=== PATIENT | female | born 1985 | race Two or more races ===

== ENCOUNTER 2020-08-30 13:28 | Outpatient (REF) | payer MEDICAID, SELFPAY ==
[2020-08-30 13:48] LABS: COVID-19 Test Negative (Negative)
== END 2020-08-30 13:29 | disposition home or self-care (01) ==
LOC: HO.LAB 13:28
PROVIDERS: PCP Nurse Practitioner Family; Visit Provider Internal Medicine
DX: Z20.828 Contact with and (suspected) exposure to other viral communicable diseases (principal)
CPT/HCPCS: 87635

== ENCOUNTER 2020-12-25 09:06 | Emergency (ER) | payer MEDICAID, SELFPAY ==
[2020-12-25 09:50] VITALS: BP 122/71; PULSE 70; RESP 18; TEMP 37.1; O2SAT 99; BMI 27.4
--- NOTE | 2020-12-25 10:09 | ED_ITS ---
HPI - URI/Sore Throat General Chief Complaint: Upper Respiratory Symptoms Stated Complaint: covid symptoms Time Seen by Provider: 12/25/20 09:52 Source: patient Mode of arrival: ambulatory Limitations: no limitations History of Present Illness HPI Narrative: 35-year-old female previously healthy here with complaints of sore throat, cough, malaise, body aches, chills, headache x3 days. Sister at home is COVID positive. MD elicited complaint: cough and sore throat Treatments prior to arrival: none Related Data Allergies Allergy/AdvReac Type Severity Reaction Status Date / Time No Known Allergies Allergy Unverified 08/03/20 16:56 Review of Systems Review of Systems: Yes all other systems are reviewed and are negative Constitutional: Constitutional: Reports no additional constitutional complaints, Reports body ache(s), Reports chills, Denies fever(s), Reports headache(s) and Denies weakness Eyes: Eyes: Reports no additional eye complaints and Denies change in vision ENT: Reports system reviewed and no additional complaints, except as doc umented, Denies dizziness, Reports headache(s), Denies nasal congestion, Denies nasal discharge, Denies neck pain and Reports sore throat Cardiovascular: Cardiovascular: Reports no additional cardiovascular complaints, Denies chest pain, Denies leg edema and Denies dyspnea Respiratory: Respiratory: Reports no additional respiratory complaints, Reports cough and Denies dyspnea Gastrointestinal: Gastrointestinal: Reports no additional gastrointestinal complaints, Denies abdominal pain, Denies diarrhea, Denies nausea and Denies vomiting Genitourinary: Genitourinary: Reports no additional female genitourinary complaints and Denies urinary incontinence Musculoskeletal: Musculoskeletal: Reports no additional musculoskeletal complaints, Denies back pain, Denies arthralgias, Denies joint swelling, Denies neck pain, Denies numbness and Denies tingling Integumentary/Breasts: Skin/Breast: Reports system reviewed and no additional complaints, except as docu and Denies rash Neurologic: Reports system reviewed and no additional complaints, except as documented, Denies Abnormal speech present, Denies dizziness, Reports headache(s), Denies numbness, Denies tingling and Denies weakness PMFSH Past Medical History Attestation statement: The following information was validated with the patient. Source: old records reviewed and nursing notes reviewed Medical History Asthma delivery delivered Social History Social History Advance Directives: No Advance Directives Information Provided: No Physical Exam Vital Signs: Vital Signs: Last Vital Signs Temp 98.7 F 12/25/20 09:50 Pulse 70 12/25/20 09:50 Resp 18 12/25/20 09:50 BP 122/71 12/25/20 09:50 Pulse Ox 99 12/25/20 09:50 Body Mass Index 27.4 Const: General: cooperative, healthy appearing, comfortable and no acute distress Orientation/consciousness: patient oriented x3 Limitations: no limitations HENMT: Head: Yes normal to inspection Ears: hearing grossly normal bilatera lly General nose exam: Normal external nose present Face and sinus: Yes normal facial exam Mouth: Normal oral and palatal mucosa present Throat: Yes posterior oropharynx normal Eyes: General: appearance normal, both eyes and all related structures Neck: Neck: Yes normal visual inspection Chest: Chest palpation & inspection: normal inspection of the chest Resp: Effort & Inspection: normal respiratory effort GI: Inspection: Yes normal to inspection Back/Spine/Pelvis: Thoracic/Lumbar Spine: thoracic and lumbar spine normal to inspection Skin: General skin exam: no rashes or lesions noted Neuro: General: patient oriented x3 and moves all extremities Cognition (Neuro): normal cognition Speech: No Abnormal speech present Gait exam (Neuro): Normal gait present Extrem: General: Yes normal to inspection Course Course Course Narrative: Flu-like symptoms x3 days with known COVID exposure. Exam is benign, well appearing, stable vital signs including oxygen saturation. COVID testing sent. 1310-COVID negative. Called and informed patient. Reviewed worrisome signs and symptoms and when to return to the emergency department. Comfortable discharge home. MDM - URI/Sore Throat Medical Records Attestation: I reviewed the patient's medical records. Lab Data Attestation: I reviewed the patient's lab results. Labs: Lab Results 12/25/20 Range/Units 10:14 Coronavirus (PCR) NEGATIVE (Negative) Influenza Type A (PCR) NEGATIVE (Negative) Influenza Type B (PCR) NEGATIVE (Negative) RSV RNA Qual (PCR) NEGATIVE (Negative) Discharge Plan Discharge Clinical Impression: Viral infection Patient Disposition: Home, Self-Care Instructions: Viral Syndrome (ED) Additional Instructions: We have tested you for COVID 19. We will call you in 1-2 hrs with your results. If you are positive you will need to self isolate for a total of 10 days and symptoms must be resolved for >24 hrs before you stop your isolation Take motrin and/or tylenol for pain or fever as needed Increase fluids, rest Referrals: Courtney Davila MD [Primary Care Provider] - 2 days Interventions: ED Discharge Assessment Last Done: 12/25/20 10:18 Discharge Date/Time: 12/25/20 10:18
[2020-12-25 12:27] LABS: Influenza A PCR NEGATIVE (Negative); Influenza B PCR NEGATIVE (Negative); Resp Syncy Virus RNA Qual PCR NEGATIVE (Negative); SARS COV2 PCR INHOUSE NEGATIVE (Negative)
== END 2020-12-25 10:18 | disposition home or self-care (01) ==
PROVIDERS: Nurse Practitioner Family; Emergency Provider Emergency Medicine; PCP Family Medicine
DX: B34.9 Viral infection, unspecified (principal); Z20.822 Contact with and (suspected) exposure to COVID-19; J45.909 Unspecified asthma, uncomplicated
CPT/HCPCS: 0241U; 36415; 99283

== ENCOUNTER 2021-03-15 14:21 | Outpatient (REF) | payer MEDICAID, SELFPAY ==
[2021-03-15 15:46] LABS: MANUAL DIFF FLAG NO
[2021-03-15 15:56] LABS: Basophils Absolute Auto 0.1 X10*3/uL (0.0-0.2); Basophils Percent Auto 0.6 % (0-2); Eosinophils Absolute Auto 0.1 X10*3/uL (0.0-0.4); Eosinophils Percent Auto 0.9 % (0-4); Hematocrit 34.7 % (37-47); Hemoglobin 11.2 g/dl (12.0-16.0); Imm Gran Abs Auto 0.03 X10*3/uL (0.00-0.03); Imm Gran Pct Auto 0.4 % (0.0-0.4); Lymphocytes Absolute Auto 1.9 X10*3/uL (1.2-4.9); Lymphocytes Percent Auto 24.2 % (20-40); Mean Corpuscular HGB Conc 32.3 g/dl (31.0-35.0); Mean Corpuscular Hemoglobin 28.7 pg (27.0-33.0); Mean Platelet Volume 10.8 fL (9.4-12.3); Monocytes Absolute Auto 0.6 X10*3/uL (0.1-1.2); Monocytes Percent Auto 7.5 % (2-11); Neutrophils Absolute Auto 5.3 X10*3/uL (2.0-8.3); Neutrophils Percent Auto 66.4 % (45-73); Platelet Count 202 X10*3/uL (160-400); Red Cell Distribution Width 12.7 % (11.0-16.0)
== END 2021-03-15 14:22 | disposition home or self-care (01) ==
LOC: HO.LAB 14:21
PROVIDERS: PCP Family Medicine; Visit Provider Internal Medicine Pulmonary Disease
DX: J45.909 Unspecified asthma, uncomplicated (principal); R49.0 Dysphonia; Z91.09 Other allergy status, other than to drugs and biological substances; Z79.899 Other long term (current) drug therapy
CPT/HCPCS: 36415; 85025; 99202

== ENCOUNTER 2021-04-27 13:59 | Outpatient (REF) | payer MEDICAID, SELFPAY ==
--- NOTE | 2021-04-27 16:21 | PFT_ITS ---
Forced vital capacity, FEV1, [id number], and MVV are normal. Post bronchodilator therapy, there is no change. Total lung capacity normal. Residual volume slightly decreased. Diffusion capacity normal. CONCLUSION: Normal pulmonary function test and there is no significant obstructive or restrictive pulmonary disorder. Chung Angeles MD MSB/MODL / [id number]
== END 2021-04-27 14:00 | disposition home or self-care (01) ==
LOC: HO.RESP 13:59
PROVIDERS: PCP Family Medicine; Visit Provider Internal Medicine Pulmonary Disease
DX: J45.909 Unspecified asthma, uncomplicated (principal)
CPT/HCPCS: 94060; 94727; 94729; 99212

== ENCOUNTER 2021-07-05 08:59 | Outpatient (REF) | payer MEDICAID, SELFPAY ==
[2021-07-06 09:13] LABS: CT PCR NOT DETECTED (Not Detect.); NG PCR NOT DETECTED (Not Detect.)
[2021-07-06 09:26] LABS: BV Int Neg Control Negative (Negative); BV Int Pos Control Positive (Positive)
[2021-07-07 18:06] LABS: HPV mRNA E6/E7 rflx Not Detected (Not Detected)
== END 2021-07-05 09:00 | disposition home or self-care (01) ==
LOC: HO.LAB 08:59
PROVIDERS: Advanced Practice Midwife; PCP Family Medicine; Visit Provider Advanced Practice Midwife
DX: Z01.419 Encounter for gynecological examination (general) (routine) without abnormal findings (principal); Z11.51 Encounter for screening for human papillomavirus (HPV); Z11.3 Encounter for screening for infections with a predominantly sexual mode of transmission; Z87.42 Personal history of other diseases of the female genital tract
CPT/HCPCS: 87480; 87491; 87510; 87591; 87624; 87660; 88142

== ENCOUNTER 2021-10-31 11:47 | Emergency (ER) | payer MEDICAID, SELFPAY ==
[2021-10-31 12:14] VITALS: BP 104/62; PULSE 87; RESP 18; TEMP 36.6; O2SAT 95; BMI 27.4
[2021-10-31 12:51] LABS: IDNOW Serial# 9DD0AD1C; Strep A Nucleic Acid Negative (Negative)
[2021-10-31 13:01] LABS: COVID-19 Test Negative (Negative); IDNOW Serial# 08D9AD1C
[2021-10-31 14:56] VITALS: BP 116/64; PULSE 72; RESP 17; TEMP 36.4; O2SAT 98
[2021-10-31 14:57] VITALS: O2SAT 98
--- NOTE | 2021-10-31 15:13 | ED_ITS ---
HPI - URI/Sore Throat General Chief Complaint: Upper Respiratory Symptoms <SELVIN Zavala Last Filed: 11/01/21 11:12> Stated Complaint: sore throat loss of smell cough fever <SELVIN Zavala Last Filed: 11/01/21 11:12> Time Seen by Provider: 10/31/21 15:14 <SELVIN Zavala Last Filed: 11/01/21 11:12> Source: patient <SELVIN Zavala Last Filed: 11/01/21 11:12> Mode of arrival: ambulatory <SELVIN Zavala Last Filed: 11/01/21 11:12> Limitations: no limitations <SELVIN Zavala Last Filed: 11/01/21 11:12> History of Present Illness HPI Narrative: 36 yold female presents to the ED for URI symptoms similiar to her son. patient states fever, sore throat, cough, runny nose, and bodyaches. <SELVIN Zavala Last Filed: 11/01/21 11:12> 36 y/o female presents to the ED for URI symptoms similiar to her son. patient states fever, sore throat, cough, runny nose, and bodyaches. She presents with her 9-year-old son was also here with similar symptoms. Fully vaccinated for COVID-19. She is having no shortness of breath or chest pain. <SELVIN Paris Last Filed: 10/31/21 15:26> MD elicited complaint: fever, cough, sore throat and nasal congestion <SELVIN Paris Last Filed: 10/31/21 15:26> Onset (ago): day(s) (3) <SELVIN Paris Last Filed: 10/31/21 15:26> Consistency: constant <SELVIN Paris Last Filed: 10/31/21 15:26> Severity: moderate <SELVIN Paris Last Filed: 10/31/21 15:26> Description of mucous: clear <SELVIN Paris Last Filed: 10/31/21 15:26> Able to tolerate fluids by mouth: Yes <SELVIN Paris Last Filed: 10/31/21 15:26> Exacerbating factors: swallowing and exertion <SELVIN Paris Last Filed: 10/31/21 15:26> Relieving factors: nothing <SELVIN Paris Last Filed: 10/31/21 15:26> Context: sick contacts <SELVIN Paris Last Filed: 10/31/21 15:26> Associated symptoms: myalgias, nasal congestion, sore throat and cough <SELVIN Paris Last Filed: 10/31/21 15:26> Treatments prior to arrival: none <SELVIN Paris Last Filed: 10/31/21 15:26> Related Data Home Medications: Home Medications Medication Instructions Recorded Confirmed levonorgestrel 20 mcg/24 hours (7 INTRAUTERINE 07/05/21 07/05/21 yrs) 52 mg intrauterine device (Mirena) <SELVIN Zavala Last Filed: 11/01/21 11:12> Allergies/Adverse Reactions: Allergies Allergy/AdvReac Type Severity Reaction Status Date / Time No Known Allergies Allergy Verified 07/05/21 09:20 <SELVIN Zavala Last Filed: 11/01/21 11:12> Review of Systems Review of Systems: Constitutional: + Fever, No Chills ENT/Mouth: + sore throat, + Rhinorrhea, No Swallowing Difficulty Cardiovascular: No Chest Pain, No SOB, No Orthopnea, No Edema Respiratory: + Cough, No Sputum, No Wheezing, No dyspnea Gastrointestinal: No Nausea, No Vomiting, No Diarrhea, No abdominal Pain Musculoskeletal: No joint pain, No Myalgias Skin: No Skin Lesions, No rash Neuro: No Dizziness, + Headache Psych: No Anxiety/Panic, No Depression Heme/Lymph: No Lymphadenopathy <SELVIN Paris Last Filed: 10/31/21 15:26> [facility] Past Medical History Medical History: Medical History (Updated 11/01/21 @ 00:02 by Yon Nieto) Asthma delivery delivered <SELVIN Zavala Last Filed: 11/01/21 11:12> Surgical History: Surgical History (Updated 07/05/21 @ 09:22 by Sienna Chapa MA) Hx of section <SELVIN Zavala Filed: 11/01/21 11:12> Social History Social History: Social History (Updated 07/05/21 @ 09:22 by Sienna Chapa MA) Alcohol intake: unknown Patient Tobacco Use Status: Never used Tobacco Use of substances other than those prescribed or required for medical reasons: No Advance Directives: No Advance Directives Information Provided: No <SELVIN Zavala - Last Filed: 11/01/21 11:12> Physical Exam Vital Signs: Vital Signs: Last Vital Signs Temp 97.6 F 10/31/21 14:56 Pulse 72 10/31/21 14:56 Resp 17 10/31/21 14:56 BP 116/64 10/31/21 14:56 Pulse Ox 98 10/31/21 14:57 BMI result Body Mass Index 27.4 <SELVIN Zavala - Last Filed: 11/01/21 11:12> Vital Signs: Last Vital Signs Temp 97.6 F 10/31/21 14:56 Pulse 72 10/31/21 14:56 Resp 17 10/31/21 14:56 BP 116/64 10/31/21 14:56 Pulse Ox 98 10/31/21 14:57 BMI result Body Mass Index 27.4 <SELVIN Paris - Last Filed: 10/31/21 15:26> Appearance: Alert. Oriented X3. No acute distress. HEENT: normal external inspection, mild posterior pharyngeal erythema without any tonsillar swelling or exudate. Uvula midline. Clear nasal discharge with erythematous nasal turbinates. CVS: Normal heart rate and rhythm. Pulses normal. Respiratory: No respiratory distress. Lung CTAB Skin: Skin warm and dry. Normal skin color. Normal skin turgor. No rashes. Extremities: atraumatic, normal inspection, normal ROM Neuro: Oriented X 3. No motor deficit. No sensory deficit. <SELVIN Paris - Last Filed: 10/31/21 15:26> Course Course Course Narrative: Well appearing <SELVIN Zavala - Last Filed: 11/01/21 11:12> Reevaluation(s) Reevaluation #1: 36-year-old female presenting with URI symptoms for the last couple of days. She presents with her young child who had similar symptoms. Exam is essentially benign with some mild posterior pharyngeal erythema. She is negative for strep and COVID. Her son is also negative. Most likely other viral etiology. Patient counseled in stable for discharge home. <SELVIN Paris - Last Filed: 10/31/21 15:26> MDM - URI/Sore Throat Lab Data Labs: Lab Results 10/31/21 12 Range/Units 12:31 12:31 COVID-19 (SHELIA) Negative (Negative) COVID-19 Clin Com See Note S. pyogenes GrpA CASI Negative (Negative) <SELVIN Zavala - Last Filed: 11/01/21 11:12> Lab Results 10/31/21 12 Range/Units 12:31 12:31 COVID-19 (SHELIA) Negative (Negative) COVID-19 Clin Com See Note S. pyogenes GrpA CASI Negative (Negative) <SELVIN Paris - Last Filed: 10/31/21 15:26> Discharge Plan Discharge Clinical Impression: Viral syndrome <SELVIN Zavala - Last Filed: 11/01/21 11:12> Patient Disposition: Home, Self-Care <SELVIN Zavala - Last Filed: 11/01/21 11:12> Instructions: Viral Syndrome (ED) <SELVIN Zavala - Last Filed: 11/01/21 11:12> Additional Instructions: You were negative for COVID-19. Your Strep test was also negative. Your symptoms are most likely due to another virus. Treatment is supportive care - rest, increase oral hydration and over the counter cold and flu medications as needed for your symptoms. Follow up with your doctor as needed. If you develop new or worsening symptoms call 911 or come back to the ER for further evaluation. <SELVIN Zavala - Last Filed: 11/01/21 11:12> Prescriptions: No Action Mirena 20 mcg/24 hours (6 yrs) 52 mg intrauterine device intrauterine RF: 0 <SELVIN Zavala - Last Filed: 11/01/21 11:12> Stand Alone Forms: Work/School Release <SELVIN Zavala Last Filed: 11/01/21 11:12> Interventions: ED Discharge Assessment Last Done: 10/31/21 15:24 <SELVIN Zavala - Last Filed: 11/01/21 11:12> Discharge Date/Time: 10/31/21 15:25 <SELVIN Zavala - Last Filed: 11/01/21 11:12> Print Language: Syriac <SELVIN Zavala - Last Filed: 11/01/21 11:12>
--- NOTE | 2021-10-31 15:14 | ED_ITS ---
HPI - URI/Sore Throat General Chief Complaint: Upper Respiratory Symptoms Stated Complaint: sore throat loss of smell cough fever Time Seen by Provider: 10/31/21 15:14 Source: patient Mode of arrival: ambulatory Limitations: no limitations History of Present Illness HPI Narrative: 36 y/o female with history of mild intermittent confusion presents to the ER with URI symptoms for the last few days. She presents with her 7 y/o child who is having similar symptoms. MD elicited complaint: cough, sore throat and nasal congestion Pertinent past history: asthma Onset (ago): day(s) (3) Consistency: constant Severity: moderate Description of mucous: clear Able to tolerate fluids by mouth: Yes Exacerbating factors: swallowing and exertion Relieving factors: OTC cold medicine Context: sick contacts Associated symptoms: chills, myalgias, headache, nasal congestion, sore throat and cough Treatments prior to arrival: none Related Data Home Medications Medication Instructions Recorded Confirmed levonorgestrel 20 mcg/24 hours (7 INTRAUTERINE 07/05/21 07/05/21 yrs) 52 mg intrauterine device (Mirena) Allergies Allergy/AdvReac Type Severity Reaction Status Date / Time No Known Allergies Allergy Verified 07/05/21 09:20 [facility] Past Medical History Medical History (Updated 10/31/21 @ 15:17 by SELVIN Zavala) Asthma delivery delivered Surgical History (Updated 07/05/21 @ 09:22 by Sienan Chapa MA) Hx of section Social History Social History (Updated 07/05/21 @ 09:22 by Sienna Chapa MA) Alcohol intake: unknown Patient Tobacco Use Status: Never used Tobacco Use of substances other than those prescribed or required for medical reasons: No Advance Directives: No Advance Directives Information Provided: No Physical Exam Vital Signs: Vital Signs: Last Vital Signs Temp 97.6 F 10/31/21 14:56 Pulse 72 10/31/21 14:56 Resp 17 10/31/21 14:56 BP 116/64 10/31/21 14:56 Pulse Ox 98 10/31/21 14:57 BMI result Body Mass Index 27.4 MDM - URI/Sore Throat Lab Data Labs: Lab Results 10/31/21 Range/Units 12:31 COVID-19 ([facility]) Negative (Negative) COVID-19 Clin Com See Note Discharge Plan Discharge Clinical Impression: Viral syndrome Patient Disposition: Home, Self-Care Instructions: Viral Syndrome (ED) Additional Instructions: You were negative for COVID-19. Your Strep test was also negative. Your symptoms are most likely due to another virus. Treatment is supportive care - rest, increase oral hydration and over the counter cold and flu medications as needed for your symptoms. Follow up with your doctor as needed. If you develop new or worsening symptoms call 911 or come back to the ER for further evaluation. Prescriptions: No Action Mirena 20 mcg/24 hours (6 yrs) 52 mg intrauterine device intrauterine RF: 0 Stand Alone Forms: Work/School Release Print Language: Bulgarian
== END 2021-10-31 15:25 | disposition home or self-care (01) ==
PROVIDERS: Emergency Provider Emergency Medicine; PCP Family Medicine
DX: B34.9 Viral infection, unspecified (principal); J45.909 Unspecified asthma, uncomplicated; Z20.822 Contact with and (suspected) exposure to COVID-19
CPT/HCPCS: 36415; 87635; 87651; 99283; 99284

== ENCOUNTER 2022-07-10 11:46 | Outpatient (REF) | payer MEDICAID, SELFPAY ==
[2022-07-11 09:09] LABS: CT PCR NOT DETECTED (Not Detect.); NG PCR NOT DETECTED (Not Detect.)
[2022-07-11 10:50] LABS: BV Int Neg Control Negative (Negative); BV Int Pos Control Positive (Positive)
[2022-07-13 10:16] LABS: HPV mRNA E6/E7 rflx Not Detected (Not Detected)
== END 2022-07-10 11:47 | disposition home or self-care (01) ==
LOC: HO.LAB 11:46
PROVIDERS: Visit Provider Advanced Practice Midwife
DX: Z01.419 Encounter for gynecological examination (general) (routine) without abnormal findings (principal); Z11.51 Encounter for screening for human papillomavirus (HPV); Z11.3 Encounter for screening for infections with a predominantly sexual mode of transmission; Z87.42 Personal history of other diseases of the female genital tract
CPT/HCPCS: 87480; 87491; 87510; 87591; 87624; 87660; 88142

== ENCOUNTER 2023-02-28 09:34 | Outpatient (REF) | payer MEDICAID, SELFPAY ==
--- NOTE | ~2023-02-28 | XR_ITS ---
EXAMINATION: XR WRIST, LEFT CLINICAL INFORMATION: Pain and swelling. COMPARISON: None available. TECHNIQUE: PA, lateral, and oblique views of the left wrist. FINDINGS: No acute fractures or subluxation. Mild diffuse nonspecific soft tissue thickening. No unexpected radiopaque foreign bodies. XR/XR wrist LT 2V IMPRESSION: 1. No acute fractures or subluxation. If pain persists, recommend correlation with an interval radiograph or MRI, as early nondisplaced fractures including, most commonly a nondisplaced scaphoid fracture may be initially radiographically occult. 2. Mild diffuse nonspecific soft tissue thickening.
== END 2023-02-28 09:35 | disposition home or self-care (01) ==
LOC: HO.XRAY 09:34
PROVIDERS: Visit Provider Student in an Organized Health Care Education/Training Program
DX: M25.532 Pain in left wrist (principal); M25.432 Effusion, left wrist
CPT/HCPCS: 73100

== ENCOUNTER 2023-10-06 10:01 | Outpatient (REF) | payer MEDICAID, SELFPAY ==
[2023-10-06 15:14] LABS: CT PCR NOT DETECTED (Not Detect.); NG PCR NOT DETECTED (Not Detect.)
[2023-10-07 12:49] LABS: BV Int Neg Control Negative (Negative); BV Int Pos Control Positive (Positive)
== END 2023-10-06 10:02 | disposition home or self-care (01) ==
LOC: HO.LNP 10:01
PROVIDERS: Visit Provider Advanced Practice Midwife
DX: Z11.3 Encounter for screening for infections with a predominantly sexual mode of transmission (principal); Z97.5 Presence of (intrauterine) contraceptive device; Z87.42 Personal history of other diseases of the female genital tract; Z98.890 Other specified postprocedural states
CPT/HCPCS: 0353U; 87480; 87510; 87660

== ENCOUNTER 2023-10-06 10:01 | Outpatient (AMB) | payer MEDICAID, SELFPAY ==
--- NOTE | 2023-10-06 10:12 | A.OFFVIS_ITS ---
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 She has no particular worries. Her big concern is the Mirena IU S placing the last 1 was so traumatic and so painful for her that she almost passed out and she is living in fear of going through that again. She is wondering what she can do to minimize that painful experience happening again and she has lots of questions about how to know that the Mirena is still working. She says she has always gotten a very light 3 day staining that lets her know that her body's passing time and that is what she counts as her. And it comes every month. She gets breast tenderness before. She had been educated about signs of ovulation last year and we reviewed that in great detail today and she has denies any symptoms of ovulation but is once a gain going to be on high alert for any that would let her know that the Mirena is not working any longer additionally if her periods returned to their normal 7 days and heavy. Discussed that that would be the best time to replace her Mirena with her heavy. And in addition it would be possible to consider prescription of misoprostol had a time to help soften her cervix. The last Mirena exchange was painful because it was status post LEEP were is previously it was before LEEP. [facility] Medical History delivery delivered Asthma Surgical History (Updated 10/06/23 @ 11:09 by Ericka Martinez CNM) History of loop electrical excision procedure (LEEP) Hx of section Family History Paternal Grandmother Breast CA Social History Alcohol intake: unknown Patient Tobacco Use Status: Never used Tobacco Female Reproductive History Menstrual Age of Menarche: 14 Duration of menses: 3-5 days Date of last menstrual period: 10/03/23 control method: progestin IUCD Total pregnancies: 1 Full term: 1 Number of Living Children: 1 Date of last pap smear: 07/11/22 (negative) History of abnormal pap smear: Yes (2013 SACHIN 2-3) Physical Exam Vital Signs: Last Vital Signs BP 124/70 10/06/23 10:14 BMI result Body Mass Index 28.5 Const General: healthy appearing, comfortable, no acute distress, well developed and alert Nutritional Appearance: average body habitus Orientation/consciousness: patient oriented x3 Limitations: no limitations HEENT Head: Yes normocephalic Neck Neck: Yes normal visual inspection Chest Chest palpation & inspection: normal inspection of the chest Breast/axilla inspection: normal inspection of the breasts and normal inspection of the axillae Breast/axilla palpation: normal palpation of the breasts and normal palpation of the axillae Resp Effort & Inspection: normal respiratory effort GI Inspection: Yes normal to inspection, No Abdominal wall edema and No distended Palpation (GI): Soft to palpation and nontender Other: Vagina pink and moist cervix is multiparous pink smooth clearly status post LEEP. It is mobile nontender uterus is anteverted to midposition nontender mobile good tone with Kegel there is no Mirena string able to be teased from os today even with Cytobrush. General: Yes bladder normal to palpation External Female Exam: normal external appearance and normal appearance of the urethra Speculum Exam - Vagina: normal appearance of the vagina, normal palpation and normal vaginal discharge Speculum Exam - Cervix: normal appearance of the cervix, normal palpation and nontender Bimanual exam- vagina & uterus: normal bimanual exam, normal palpation, uterine size normal, bladder normal to palpation, consistency normal, normal palpation, uterine mobility normal, uterine shape normal, No Cervical tenderness present, non-tender and no cervical motion tenderness Bimanual Exam- Adnexa, other: normal adnexae, no masses, normal and No adnexal tenderness Neuro General: patient oriented x3 Assessment & Plan Assessment & Plan (1) Presence of 52 mg levonorgestrel-releasing intrauterine device (IUD): Comment: Strings are not visible patient has been educated about signs and symptoms that would indicate it is no longer working for contraceptive benefit and will alert us at 1st sign a plan for replacement made. Code(s): Z97.5 - Presence of (intrauterine) contraceptive device (2) Screen for sexually transmitted diseases: Code(s): Z11.3 - Encounter for screening for infections with a predominantly sexual mode of transmission (3) Hx of abnormal cervical Pap smear: Comment: SACHIN 2-3 2013, normals 2014,2015,2018; pap 07/05/21= neg w neg HPV; 07/10/2022 Pap is negative with negative HPV. Code(s): Z87.42 - Personal history of other diseases of the female genital tract (4) History of loop electrical excision procedure (LEEP): Comment: Cervix tightly scarred. Previous Mirena exchange status post LEEP was extremely traumatic for patient. 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 She has no particular worries. Her big concern is the Mirena IU S placing the last 1 was so traumatic and so painful for her that she almost passed out and she is living in fear of going through that again. She is wondering what she can do to minimize that experience again and she has lots of questions about how to know that the Mirena is still working. She says she has always gotten a very light 3 day staining that lets her know that her body's passing time and that is what she counts as her. And it comes every month. She gets breast tenderness before. She had been educated about signs of ovulation last year and we reviewed that in great detail today and she has denies any symptoms of ovulation but is once again going to be on high alert for any that would let her know that the Mirena is not working any longer additionally if her periods returned to their normal 7 days and heavy. Discussed that that would be the best time to replace her Mirena with her heavy. And in addition it would be possible to consider prescription of misoprostol had a time to help soften her cervix. The last Mirena exchange was painful because it was status post LEEP were is previously it was before LEEP.. Patient was re-educated about signs and symptoms of ovulation and what to do should they occur- (use protection with condoms), and call for a visit to discuss replacement of the Mirena based on string and return of heavy menses and signs of ovulation. The possibility that exchange might need to occur her under anesthesia will also was discussed. Patient states all of her Paps since the LEEP were negative including last year's so no Pap was done this year. -----Discussed in this visit the following: healthy balanced diet, regular and consistent exercise, getting recommended health screens, doing the best she can for her particular health concerns, kegel exercises, pap smear screening and followup recommendations, mammography screening and SBE, normal changes in cycles in her life stage--- . Orders: Orders CT NG by PCR Today Z11.3 - Encounter for screening for infections with a pred ominantly sexual mode of transmission HIV Ab/Ag Today Z11.3 - Encounter for screening for infections with a predominantly sexual mode of transmission Syphilis Screen Today Z11.3 - Encounter for screening for infections with a predominantly sexual mode of transmission Bacterial Vaginosis Panel Today Z11.3 - Encounter for screening for infections with a predominantly sexual mode of transmission Hepatitis B Surface Antigen Today Z11.3 - Encounter for screening for infections with a predominantly sexual mode of transmission Hepatitis C Antibody Today Z11.3 - Encounter for screening for infections with a predominantly sexual mode of transmission Coding Level of Care Code Est Pt Prev Care [id number]) Diagnoses Presence of 52 mg levonorgestrel-releasing intrauterine device (IUD) Z97.5 Screen for sexually transmitted diseases Z11.3 Hx of abnormal cervical Pap smear Z87.42 History of loop electrical excision procedure (LEEP) Z98.890
[2023-10-06 10:14] VITALS: BP 124/70; BMI 28.5
== END 2023-10-06 11:05 | disposition home or self-care (01) ==
PROVIDERS: PCP Family Medicine; Visit Provider Advanced Practice Midwife
DX: Z97.5 Presence of (intrauterine) contraceptive device (principal); Z11.3 Encounter for screening for infections with a predominantly sexual mode of transmission; Z87.42 Personal history of other diseases of the female genital tract; Z98.890 Other specified postprocedural states
CPT/HCPCS: 99395

== ENCOUNTER 2024-02-05 13:42 | Outpatient (REF) | payer MEDICAID, SELFPAY ==
--- NOTE | ~2024-02-05 | XR_ITS ---
EXAMINATION: XR CHEST CLINICAL INFORMATION: Left lower rib severe pain. COMPARISON: 06/24/2018. TECHNIQUE: 2 views of the chest were obtained. FINDINGS: There is no gross pneumothorax. Heart size is normal. Dextroscoliosis of the thoracic spine. No pleural effusion. No new focal consolidation to suggest pneumonia. XR/XR chest 2V IMPRESSION: 1. No evidence of pneumonia. 2. Dextroscoliosis of the thoracic spine.
== END 2024-02-05 13:43 | disposition home or self-care (01) ==
LOC: HO.XRAY 13:42
PROVIDERS: PCP Pediatrics; Visit Provider Pediatrics
DX: R20.2 Paresthesia of skin (principal); R07.81 Pleurodynia
CPT/HCPCS: 71046

== ENCOUNTER 2024-02-06 08:15 | Outpatient (REF) | payer MEDICAID, SELFPAY ==
[2024-02-06 08:28] LABS: MANUAL DIFF FLAG NO
[2024-02-06 08:55] LABS: Basophils Absolute Auto 0.1 X10*3/uL (0.0-0.2); Basophils Percent Auto 0.8 % (0-2); Eosinophils Absolute Auto 0.1 X10*3/uL (0.0-0.4); Eosinophils Percent Auto 0.9 % (0-4); Hematocrit 38.6 % (37.0-47.0); Hemoglobin 12.9 g/dl (12.0-16.0); Imm Gran Abs Auto 0.05 X10*3/uL (0.00-0.03); Imm Gran Pct Auto 0.6 % (0.0-0.4); Lymphocytes Absolute Auto 2.3 X10*3/uL (1.2-4.9); Lymphocytes Percent Auto 25.4 % (20-40); Mean Corpuscular HGB Conc 33.4 g/dl (31.0-35.0); Mean Corpuscular Hemoglobin 29.1 pg (27.0-33.0); Mean Corpuscular Volume 87.1 fL (80.0-98.0); Mean Platelet Volume 10.4 fL (9.4-12.3); Monocytes Absolute Auto 0.6 X10*3/uL (0.1-1.2); Monocytes Percent Auto 6.8 % (2-11); Neutrophils Absolute Auto 5.9 x10*3/uL (2.0-8.3); Neutrophils Percent Auto 65.5 % (45-73); Platelet Count 196 X10*3/uL (160-400); Red Blood Count 4.43 X10*6/uL (4.20-5.50); Red Cell Distribution Width 12.8 % (11.0-16.0)
[2024-02-06 09:19] LABS: Alanine Aminotransferase 11 U/L (0-31); Albumin Level 4.3 g/dL (3.5-5.0); Alkaline Phosphatase 53 U/L (39-117); Anion Gap 11 (12-20); Aspartate Amino Transferase 12 U/L (5-31); Bilirubin Total 0.7 mg/dL (0.0-1.0); Blood Urea Nitrogen 14 mg/dL (9-16); Calcium 8.9 mg/dL (8.4-10.2); Carbon Dioxide 25 mmol/L (22-29); Chloride 109 mmol/L (96-108); Cholesterol 235 mg/dL (<200); Estimated Glomerular Filt Rate > 60; Glucose Fasting 91 mg/dL (60-99); Glucose Random 89 mg/dL (60-115); HDL Cholesterol 40 mg/dL (>40); LDL Cholesterol Calculated 173 mg/dL (<100); Potassium 3.6 mmol/L (3.3-5.1); Sodium 141 mmol/L (135-145); Total Protein 6.8 g/dL (6.5-8.0); Triglycerides 111 mg/dL (<150)
[2024-02-06 09:32] LABS: Appearance Urine Turbid; Color Urine Yellow; Glucose Urine UA Negative (Negative); Leukocyte Esterase Urine Negative (Negative); Nitrite Urine Negative (Negative); PH 5.5 (5.0-9.0); Specific Gravity - Urine 1.025 (1.005-1.025); UMIC TRIGGER UACC YES; Urine Blood Moderate (2+) (Negative); Urine Ketones Negative (Negative); Urine Protein Trace mg/dL (Neg-Trace)
[2024-02-06 09:35] LABS: TSH reflex Free T4 0.62 uIU/mL (0.32-4.0); Vitamin D 25-OH Total 8.7 ng/mL (>30)
[2024-02-06 09:36] LABS: Erythrocyte Sedimentation Rate 7 MM/HR (0-20)
[2024-02-06 09:43] LABS: Folate 8.2 ng/mL (> or = 4.0); Vitamin B12 474 pg/mL (200-900)
[2024-02-06 09:50] LABS: Bacteria Urine 4+ (None Seen); Hyaline Casts Urine 0-2 /LPF (0-2); Squamous Epithelial Cell Urine >20 /HPF (0-2); UACC Culture Trigger YES
== END 2024-02-06 08:16 | disposition home or self-care (01) ==
LOC: HO.LAB 08:15
PROVIDERS: PCP Family Medicine; Visit Provider Pediatrics
DX: E55.9 Vitamin D deficiency, unspecified (principal); R20.2 Paresthesia of skin; M25.50 Pain in unspecified joint; R07.81 Pleurodynia
CPT/HCPCS: 36415; 80048; 80053; 80061; 81001; 82306; 82607; 82746; 84443; 85025; 85652; 87086

== ENCOUNTER 2024-02-26 10:33 | Emergency (ER) | payer MEDICAID, SELFPAY ==
--- NOTE | ~2024-02-26 | CT_ITS ---
EXAMINATION: CT ABDOMEN AND PELVIS WITHOUT CONTRAST CLINICAL INFORMATION: Left flank pain COMPARISON: 05/23/2013 TECHNIQUE: Multidetector volumetric imaging was performed from the superior aspect of the liver through the pubic symphysis. Sagittal and coronal reformatted images were obtained on the technologist's workstation. This CT examination was performed using dose optimization techniques as appropriate, variously including the following: *Automated exposure control *Adjustment of mA and/or kV according to patient size (this includes techniques or standardized protocols for targeted exams where dose is matched to indication/reason for exam; i.e. extremities or head) *Use of iterative reconstruction technique DLP: 511 mGy-cm FINDINGS: LUNG BASES: The visualized lung bases are unremarkable. LIVER, GALLBLADDER, AND BILIARY TREE: The liver is normal in size, shape, and attenuation. No focal hepatic lesion or biliary ductal dilatation is present. The gallbladder is unremarkable with no evidence of radiopaque gallstones, gallbladder wall thickening, or obvious pericholecystic inflammatory changes. PANCREAS: Unremarkable. SPLEEN: Unremarkable. ADRENAL GLANDS: Unremarkable. KIDNEYS AND URETERS: The kidneys are normal in size, shape, and attenuation. No hydronephrosis, hydroureter, or calculi seen. No perinephric stranding. BLADDER: Unremarkable. GASTROINTESTINAL TRACT: The small and large bowel are unremarkable. The appendix is unremarkable. ABDOMINAL WALL: There is fat-containing small umbilical and paraumbilical hernia LYMPH NODES: There are few scattered mesenteric lymph nodes with the largest in the right lower quadrant measured 1.4 cm seen on image 52 series 3 VASCULAR: Unremarkable. PELVIC VISCERA: There is IUD in the uterus, uterus is retroflexed right adnexa is unremarkable. Left adnexa is not seen. OSSEOUS STRUCTURES: Unremarkable. CT/CT abdomen pelvis wo IV con IMPRESSION: No explanation for left flank pain. Fleischner guidelines were followed.
[2024-02-26 11:05] VITALS: BP 121/97; PULSE 79; RESP 20; TEMP 36.6; O2SAT 98; BMI 28.2
--- NOTE | 2024-02-26 11:05 | ED_ITS ---
HPI - SOB/Dyspnea General Chief Complaint: General Medical Stated Complaint: SOB, pain under L breast Time Seen by Provider: 02/26/24 16:11 Source: patient, RN notes reviewed and old records reviewed Mode of arrival: ambulatory Limitations: no limitations History of Present Illness HPI Narrative: 38-year-old female presents for evaluation a ?lump on my left side. ? She reports that she noticed the area about a week ago. She states the area has been getting larger. The area is more noticeable ?when I am standing up. ? She states the area is painful to touch She reports the pain is now radiating down to her abdomen and around the left side and left flank. Patient reports that sometimes the area is red and inflamed but not currently Denies any fevers, chills She has no other complaints or concerns at this time Related Data Home Medications ?Medication ?Instructions ?Recorded ?Confirmed levonorgestrel 21 mcg/24 hours (8 intrauterine 07/05/21 10/06/23 yrs) 52 mg intrauterine device (Mirena) citalopram 10 mg tablet (Celexa) 10 mg PO DAILY 07/10/22 10/06/23 albuterol sulfate 90 mcg/actuation 2 puff inhalation QID 10/06/23 10/06/23 aerosol inhaler lamotrigine 50 mg tablet,extended 50 mg PO DAILY 10/06/23 10/06/23 release 24 hr Allergies Allergy/AdvReac Type Severity Reaction Status Date / Time No Known Allergies Allergy Verified 02/26/24 11:07 Review of Systems 2 Constitutional: Constitutional: Denies anorexia, Denies body ache(s), Denies chills and Denies fever(s) Eyes: Eyes: Denies blurry vision ENT: Denies sore throat Cardiovascular: Cardiovascular: Denies chest pain and Denies dyspnea Respiratory: Respiratory: Denies cough and Denies dyspnea Gastrointestinal: Gastrointestinal: Denies abdominal pain, Denies nausea and Denies vomiting Musculoskeletal: Musculoskeletal: Reports back pain Integumentary/Breasts: Skin/Breast: Reports erythema and Denies rash Psychiatric: Psychiatric: Denies anxiety [facility] Past Medical History Medical History (Updated 02/26/24 @ 16:42 by Dejuan Jalloh) delivery delivered Asthma Surgical History (Updated 10/06/23 @ 11:09 by Ericka Martinez CNM) History of loop electrical excision procedure (LEEP) Hx of section Family History Family History Paternal Grandmother Breast CA Social History Social History Alcohol intake: unknown Patient Tobacco Use Status: Never used Tobacco Smoked in Last 30 Days: No Use of substances other than those prescribed or required for medical reasons: Yes Substance Use Type: Marijuana Substance Use Frequency: Occasionally Advance Directives: No Advance Directives Information Provided: No Physical Exam 2 Vital Signs: Vital Signs: Last Vital Signs Temp 98.9 F 02/26/24 16:16 Pulse 61 02/26/24 16:16 Resp 18 02/26/24 16:16 BP 120/82 02/26/24 16:16 Pulse Ox 100 02/26/24 16:16 O2 Del Method Room Air 02/26/24 16:16 BMI result Body Mass Index 28.2 Const: General: healthy appearing, comfortable, no acute distress, alert and awake Nutritional Appearance: well nourished Orientation/consciousness: p atient oriented x3 HEENT: Head: Yes normocephalic and Yes atraumatic Eyes: Eyelids: Yes eyelids normal Conjunctivae: conjunctivae normal S clerae: sclerae normal Corneas: corneas normal Pupils: Equal, round and reactive pupils present EOM: EOMs intact bilaterally Neck: Neck: Yes full ROM Resp: Effort & Inspection: normal respiratory effort, able to speak in complete sentences, no audible wheezes and not labored Auscultation: clear to auscultation bilaterally Cardio: Rate: regular rate Rhythm: regular rhythm GI: Inspection: No distended Palpation (GI): Soft to palpation, not firm, nontender, no guarding and not rigid Skin: Other: Patient has no skin changes to the upper abdomen bilaterally. There is no obvious visual or palpable mass. There is a questionable lipoma palpable in the left upper abdomen. However, it does appear quite consistent on visualization and palpation to the opposite side. General skin exam: elasticity normal Neuro: General: patient oriented x3 Cranial nerves: Yes Equal, round and reactive pupils present and Yes Bilaterally intact EOM present Cognition (Neuro): normal cognition Course Course Course Narrative: This is a Rapid Medical Examination (RME) in triage, full HPI, ROS, assessment and plan per primary provider in the Main ED. 38 yo female presents to the ER for evaluation of 10 days of SOB and left lower chest/rib pain. She states she feels a bump under her left breast and it is painful. Had recent CXR 02/04 that was unremarkable. UA at the time showed UTI and she was treated w/ abx. Reports pain is worsening w/ movement, deep breaths. VSS in triage. She has tenderness of her LUQ and left lower chest wall, left flank, +CVA tenderness. Plan: repeat UA, labs, CT abd/pelvis Medical Decision Making Medical Decision Making [facility] Narrative: The patient presents for evaluation of a reported mass to her left upper abdomen. On exam, there is no obvious visual or palpable mass. Appears quite consistent to the contralateral side. The patient reports that the mass is more noticeable to her when she is standing, I had the patient stand up and did not see any asymmetric changes. It may just be a simple skin fold. CT scan without contrast did not show any concerning abnormalities. There was a swollen lymph node in the right lower abdomen which does not appear related to her current complaints. Again, there are no overlying skin changes I have no concern for infectious process. Alternatively, the patient may just have a muscle strain. She will be referred to General surgery if her symptoms worsen Differential Diagnosis Differential Diagnoses: The differential diagnosis associated with the presentation includes Muscle strain Lipoma Abscess Seroma Sebaceous cyst Lab Data [facility] Lab Attestation statement: I reviewed the patient's lab results. No leukocytosis or anemia. Normal platelet count. No electrolyte abnormalities. 02/26/24 11:53 02/26/24 11:53 Labs: Lab Results 02/26/24 02/26/24 Range/Units 11:52 11:53 WBC 9.1 (4.8-10.8) X10*3/uL RBC 4.33 (4.20-5.50) X10*6/uL Hgb 12.7 (12.0-16.0) g/dl Hct 37.5 (37.0-47.0) % MCV 86.6 (80.0-98.0) fL MCH 29.3 (27.0-33.0) pg MCHC 33.9 (31.0-35.0) g/dl RDW 12.4 (11.0-16.0) % Plt Count 221 (160-400) X10*3/uL MPV 10.1 (9.4-12.3) fL Immature Gran % (Auto) 0.4 (0.0-0.4) % Neut % (Auto) 62.7 (45-73) % Lymph % (Auto) 28.6 (20-40) % Yell % (Auto) 6.8 (2-11) % Eos % (Auto) 0.8 (0-4) % Baso % (Auto) 0.7 (0-2) % Lymph # (Auto) 2.6 (1.2-4.9) X10*3/uL Yell # (Auto) 0.6 (0.1-1.2) X10*3/uL Eos # (Auto) 0.1 (0.0-0.4) X10*3/uL Baso # (Auto) 0.1 (0.0-0.2) X10*3/uL Abs Immat Gran (auto) 0.04 H (0.00-0.03) X10*3/uL Absolute Neuts (auto) 5.7 (2.0-8.3) x10*3/uL Absolute Nucleated RBC 0.000 (0.0-0.012) X10*3/uL Nucleated RBC % (auto) 0.0 (0.0-0.2) /100WBC PT 13.5 H (11.1-13.3) SEC INR 1.1 (0.9-1.1) APTT 32.2 (26.0-36.8) SEC Sodium 142 (135-145) mmol/L Potassium 3.6 (3.3-5.1) mmol/L Chloride 109 H (96-108) mmol/L Carbon Dioxide 28 (22-29) mmol/L Anion Gap 9 L (12-20) BUN 15 (9-16) mg/dL Creatinine 0.64 (0.5-1.4) mg/dL Estim Creat Clear Calc 114.5 Estimated GFR > 60 Random Glucose 85 (60-115) mg/dL Calcium 8.9 (8.4-10.2) mg/dL Magnesium 2.1 (1.6-2.6) mg/dL Total Bilirubin 0.8 (0.0-1.0) mg/dL Direct Bilirubin 0.2 (0.0-0.5) mg/dL AST 14 (5-31) U/L ALT 10 (0-31) U/L Alkaline Phosphatase 53 (39-117) U/L Total Protein 6.8 (6.5-8.0) g/dL Albumin 4.2 (3.5-5.0) g/dL Beta HCG, Quant < 2 mIU/mL Urine Color Yellow Urine Appearance Cloudy Urine pH 7.0 (5.0-9.0) Ur Specific Newell 1.025 (1.005-1.025) Urine Protein Trace (Neg-Trace) mg/dL Urine Glucose (UA) Negative (Negative) mg/dL Urine Ketones Negative (Negative) mg/dL Urine Blood Small (1+) H (Negative) Urine Nitrite Negative (Negative) Ur Leukocyte Esterase Negative (Negative) Urine RBC >20 H (0-2) /HPF Urine WBC 0-5 (0-5) /HPF Ur Squamous Epith Cells 11-20 (0-2) /HPF Urine Bacteria 1+ (None Seen) Hyaline Casts 0-2 (0-2) /LPF Independent Interpretation I performed an independent interpretation of an: CT Scan (No obvious mass in the left upper abdomen) Radiology Impression Discussion of test interpretation with radiology: I have reviewed the radiologist's reading. (IMPRESSION: No explanation for left flank pain. ) Discharge Plan Discharge Clinical Impression: Abdominal mass, left upper quadrant Patient Disposition: Home, Self-Care Instructions: Lipoma (ED) Additional Instructions: Your workup in the ER today was reassuring. This includes your blood work, CT scan, urinalysis Your symptoms may be related to a benign lipoma You may follow-up with general surgery if the area continues larger or you wish to have it removed. There was no evidence of infection or concerning mass Prescriptions: No Action citalopram [Celexa] 10 mg tablet 10 mg PO DAILY Mirena 20 mcg/24 hours (6 yrs) 52 mg intrauterine device intrauterine lamotrigine 50 mg tablet extended release 24hr 50 mg PO DAILY albuterol sulfate 90 mcg/actuation HFA aerosol inhaler 2 puff inhalation QID Referrals: Garrison James MD [Physician] - (? lipoma left upper abdomen) Print Language: Ukrainian
[2024-02-26 11:58] LABS: MANUAL DIFF FLAG NO
[2024-02-26 12:01] LABS: Appearance Urine Cloudy; Color Urine Yellow; Glucose Urine UA Negative (Negative); Leukocyte Esterase Urine Negative (Negative); Nitrite Urine Negative (Negative); Specific Gravity - Urine 1.025 (1.005-1.025); UMIC TRIGGER UACC YES; Urine Blood Small (1+) (Negative); Urine Ketones Negative (Negative); Urine Protein Trace mg/dL (Neg-Trace)
[2024-02-26 12:03] LABS: Basophils Absolute Auto 0.1 X10*3/uL (0.0-0.2); Basophils Percent Auto 0.7 % (0-2); Eosinophils Absolute Auto 0.1 X10*3/uL (0.0-0.4); Eosinophils Percent Auto 0.8 % (0-4); Hematocrit 37.5 % (37.0-47.0); Hemoglobin 12.7 g/dl (12.0-16.0); Imm Gran Abs Auto 0.04 X10*3/uL (0.00-0.03); Imm Gran Pct Auto 0.4 % (0.0-0.4); Lymphocytes Absolute Auto 2.6 X10*3/uL (1.2-4.9); Lymphocytes Percent Auto 28.6 % (20-40); Mean Corpuscular HGB Conc 33.9 g/dl (31.0-35.0); Mean Corpuscular Hemoglobin 29.3 pg (27.0-33.0); Mean Corpuscular Volume 86.6 fL (80.0-98.0); Mean Platelet Volume 10.1 fL (9.4-12.3); Monocytes Absolute Auto 0.6 X10*3/uL (0.1-1.2); Monocytes Percent Auto 6.8 % (2-11); Neutrophils Absolute Auto 5.7 x10*3/uL (2.0-8.3); Neutrophils Percent Auto 62.7 % (45-73); Platelet Count 221 X10*3/uL (160-400); Red Blood Count 4.33 X10*6/uL (4.20-5.50); Red Cell Distribution Width 12.4 % (11.0-16.0); White Blood Count 9.1 X10*3/uL (4.8-10.8)
[2024-02-26 12:03] LABS: Bacteria Urine 1+ (None Seen); Hyaline Casts Urine 0-2 /LPF (0-2); RBC Urine >20 /HPF (0-2); WBC Urine 0-5 /HPF (0-5)
[2024-02-26 12:07] LABS: INTERNATIONAL NORM RATIO 1.1 (0.9-1.1); Prothrombin Time 13.5 SEC (11.1-13.3)
[2024-02-26 12:10] LABS: Partial Thromboplastin Time 32.2 SEC (26.0-36.8)
[2024-02-26 12:21] LABS: Alanine Aminotransferase 10 U/L (0-31); Albumin Level 4.2 g/dL (3.5-5.0); Alkaline Phosphatase 53 U/L (39-117); Anion Gap 9 (12-20); Aspartate Amino Transferase 14 U/L (5-31); Bilirubin Direct 0.2 mg/dL (0.0-0.5); Bilirubin Total 0.8 mg/dL (0.0-1.0); Blood Urea Nitrogen 15 mg/dL (9-16); Calcium 8.9 mg/dL (8.4-10.2); Carbon Dioxide 28 mmol/L (22-29); Chloride 109 mmol/L (96-108); Creatinine Clr Calc Pharmacy 114.5; Estimated Glomerular Filt Rate > 60; Glucose Random 85 mg/dL (60-115); Magnesium 2.1 mg/dL (1.6-2.6); Potassium 3.6 mmol/L (3.3-5.1); Sodium 142 mmol/L (135-145); Total Protein 6.8 g/dL (6.5-8.0)
[2024-02-26 12:23] LABS: HCG Quantitative < 2 mIU/mL
[2024-02-26 16:16] VITALS: BP 120/82; PULSE 61; RESP 18; TEMP 37.2; O2SAT 100
--- NOTE | 2024-02-26 16:37 | PC.NURSE ---
pt is alert and oriented, skin pwd, respirations even and unlabored, pt reports left upper abd swelling and pain, pain at 8/10 for a couple of weeks, Randy MONTALVO at bedside evaluating the pt- the area appears to be tender on palpation, vs stable
[2024-02-26 16:59] VITALS: BP 120/82; PULSE 61; RESP 18; TEMP 37.2; O2SAT 100
== END 2024-02-26 17:00 | disposition home or self-care (01) ==
PROVIDERS: Physician Assistant; Emergency Provider Internal Medicine; PCP Family Medicine
DX: R19.02 Left upper quadrant abdominal swelling, mass and lump (principal); R10.12 Left upper quadrant pain; N64.4 Mastodynia; R06.02 Shortness of breath; Z79.899 Other long term (current) drug therapy
CPT/HCPCS: 36415; 74176; 80048; 80076; 81001; 81003; 83735; 84702; 85025; 85610; 85730; 99284

== ENCOUNTER 2024-03-04 13:49 | Outpatient (REF) | payer MEDICAID, SELFPAY ==
[2024-03-04 15:01] LABS: C Reactive Protein 0.15 mg/dL (< or = 0.50)
[2024-03-04 17:39] LABS: Rheumatoid Factor < 13.0 IU/mL (<15.0)
[2024-03-05 07:38] LABS: HIV AB/AG Nonreactive (Nonreactive); HIV Num 1 0.04 S/CO (0.00-0.99); ~HepC Num1 0.07 S/CO (0.00-0.79); ~Hepatitis C Antibody Nonreactive (Nonreactive)
[2024-03-05 14:39] LABS: Cyclic Citrullinated Peptide <16 UNITS
[2024-03-09 12:53] LABS: Anti Nuclear Antibody Pattern Nuclear, Homogeneous; Anti Nuclear Antibody Screen POSITIVE (NEGATIVE); Anti Nuclear Antibody Titer 1:40 titer
== END 2024-03-04 13:50 | disposition home or self-care (01) ==
LOC: HO.CHCLDS 13:49
PROVIDERS: Visit Provider Family Medicine
DX: Z01.84 Encounter for antibody response examination (principal); Z11.4 Encounter for screening for human immunodeficiency virus [HIV]; M25.50 Pain in unspecified joint
CPT/HCPCS: 36415; 86038; 86039; 86140; 86200; 86431; 86803; 87389

== ENCOUNTER 2024-03-11 10:48 | Outpatient (AMB) | payer MEDICAID, SELFPAY ==
--- NOTE | 2024-03-11 11:05 | MHC.OFFVIS ---
Vital Signs 03/11/24 11:11 Height 5 ft 3 in Weight 162 lb BMI 28.7 BP 125/72 Blood Pressure Location Rt brachial Position Sitting Pulse 57 Intake Visit Reasons: ? Lipoma Intake Note: This patient presents for [facility] ER follow-up for lipoma. Pt c/o; reports tenderness when pressed on, reports unable to sit or lay on side, intermittent and often times constant discomfort/pain. 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 Lipoma: Details: [age] year old female referred for a question of a lipoma on the abdominal wall. She went to the ER last February 25 because of what she thought was some ?inflammation? on the abdominal wall on the left side. She had a CAT scan done which showed an umbilical hernia that contained fat. She says she never had any problems with the umbilicus in the past However because of this question of a lipoma that she was feeling on the abdominal wall, she was referred to me She denies any skin changes. She also says that she is undergoing workup for a possible autoimmune disease because she has click muscle pains. FORMERLY [facility], [facility] Medical History (Updated 03/11/24 @ 11:22 by Garrison James MD) Umbilical hernia Lipoma of abdominal wall delivery delivered Asthma Surgical History History of loop electrical excision procedure (LEEP) Hx of section Family History Paternal Grandmother Breast CA Social History Alcohol intake: unknown Patient Tobacco Use Status: Never used Tobacco Substance Use Type: Marijuana Female Reproductive History Menstrual Age of Menarche: 14 Review of Systems Const Denies chills and Denies fever(s) Card Denies chest pain, Denies dyspnea and Denies dyspnea on exertion Resp Denies cough, Denies dyspnea and Denies dyspnea on exertion GI Denies hematochezia and Denies change in bowel habits Denies hematuria Musc Details: Generalized muscle pains Denies back pain and Denies limited range of motion Neuro Denies focal weakness and Denies convulsions Psych Denies depression and Denies mood swings Physical Exam Const General: comfortable and no acute distress Orientation/consciousness: patient oriented x3 Neck Neck: Yes no lymphadenopathy Resp Auscultation: clear to auscultation bilaterally Cardio Rhythm: regular rhythm GI Other: Vague asymmetry on the upper abdomen, seems to be more prominent fatty tissue on the left upper quadrant compared to the right, but no obvious mass She has the small fat containing umbilical hernia, about 1.5 cm, nontender Palpation (GI): Soft to palpation, nontender and no guarding Neuro General: patient oriented x3 Assessment & Plan Assessment & Plan (1) Lipoma of abdominal wall: Code(s): D17.1 - Benign lipomatous neoplasm of skin and subcutaneous tissue of trunk Category: Medical Plan: She has asymmetry of the subcutaneous fat on the abdominal wall as described above. This may represent a vague lipoma on the left side. I have reviewed her CAT scan and the lipoma is not seen. Furthermore, examination does not reveal a discrete mass. I told her that we can continue to monitor this and I discussed with her following up in the office down the line so we can re-evaluate for possible excision She says that she is undergoing workup for possible autoimmune disease because of chronic muscle pains and she would like to periodic ties this for now. (2) Umbilical hernia: Code(s): K42.9 - Umbilical hernia without obstruction or gangrene Category: Medical Plan: Review of her CT scan shows a small fat containing hernia as described above. I discussed this with her and also explained to her the option of repair. She says that this does not bother her for now and would like to hold off on any intervention as she is undergoing workup for autoimmune disease. She says she will come back to the office down the line. Coding Level of Care Code New Pt Level 4 (55535) Diagnoses Lipoma of abdominal wall D17.1 Umbilical hernia K42.9
[2024-03-11 11:11] VITALS: BP 125/72; PULSE 57; BMI 28.7
== END 2024-03-11 11:42 | disposition home or self-care (01) ==
PROVIDERS: PCP Family Medicine; Referring Provider Family Medicine; Visit Provider Surgery
DX: D17.1 Benign lipomatous neoplasm of skin and subcutaneous tissue of trunk (principal); K42.9 Umbilical hernia without obstruction or gangrene
CPT/HCPCS: 99204

== ENCOUNTER → 2024-03-11 10:48 | Outpatient (BNVA) | payer MEDICAID, SELFPAY | PROVIDERS: PCP Family Medicine; Visit Provider Surgery ==

== ENCOUNTER 2024-03-11 11:52 | Outpatient (REF) | payer MEDICAID, SELFPAY ==
[2024-03-12 09:04] LABS: Complement C3 144 mg/dL (83-193)
[2024-03-12 14:13] LABS: Cardiolipin IgG Ab <2.0 GPL-U/mL; Cardiolipin IgM Ab <2.0 MPL-U/mL
[2024-03-15 21:19] LABS: Anti DNA DS Antibody <1 IU/mL; SM/Ribonucleoprotein Ab <1.0 NEG AI (<1.0 NEG); Smith Protein <1.0 NEG AI (<1.0 NEG)
== END 2024-03-11 11:53 | disposition home or self-care (01) ==
LOC: HO.CHCLDS 11:52
PROVIDERS: Visit Provider Family Medicine
DX: R76.8 Other specified abnormal immunological findings in serum (principal); D17.1 Benign lipomatous neoplasm of skin and subcutaneous tissue of trunk; K42.9 Umbilical hernia without obstruction or gangrene
CPT/HCPCS: 36415; 86147; 86160; 86225; 86235; 99202

== ENCOUNTER 2024-04-20 10:34 | Outpatient (REF) | payer MEDICAID, SELFPAY ==
--- NOTE | ~2024-04-20 | US_ITS ---
EXAMINATION: US PELVIS CLINICAL INFORMATION: Loss of IUD strings LMP: Beginning of March COMPARISON: CT scan abdomen and pelvis 02/26/2024 TECHNIQUE: Ultrasound of the pelvis is performed using both transabdominal and transvaginal transducers along with Doppler. Transvaginal imaging is performed due to inadequate visualization transabdominally. FINDINGS: Uterus: The uterus is anteverted and measures 8.2 x 4.4 x 5.4 cm. No focal fibroid. There is no thickening of the endometrial stripe. The IUD is in proper position. Adnexa: Both ovaries are visualized. There is normal color flow to the adnexa. There is no ovarian torsion. There is no pelvic ascites or fluid collection. Right ovary measures 2.6 x 2.1 x 2.1 cm. Volume 8.3 mL. 0.9 x 0.7 x 1.2 cm complex cyst is noted. Complex cysts less than 2 cm in size are of doubtful clinical significance. Left ovary measures 3.0 x 1.6 x 1.3 cm. Volume 3.3 mL. US/US pelvic and transvaginal IMPRESSION: 1. Normal uterus and left ovary. 2. IUD is in proper position. 3. 1.2 cm complex right ovarian cyst. Complex cysts less than 2 cm in size are of doubtful clinical significance. No follow-up imaging is recommended.
== END 2024-04-20 10:35 | disposition home or self-care (01) ==
LOC: HO.US 10:34
PROVIDERS: PCP Family Medicine; Visit Provider Family Medicine
DX: T83.32XA Displacement of intrauterine contraceptive device, initial encounter (principal)
CPT/HCPCS: 76830; 76856

== ENCOUNTER 2024-05-24 08:31 | Outpatient (AMB) | payer MEDICAID, SELFPAY ==
--- NOTE | 2024-05-24 08:34 | A.OFFVIS_ITS ---
Vital Signs 05/24/24 08:40 Height 5 ft 3 in Weight 157 lb 13.616 oz BMI 28.0 BP 115/72 Blood Pressure Location Rt brachial Position Sitting Respiration 18 Pulse 61 Pulse Source Pulse Oximeter Pulse Oximetry (%) 99 Oxygen Delivery Method Room Air Intake Visit Reasons: +REFUGIO Intake Note: Patient presents for REFUGIO. Lots of changes. Feeling a lot of joint pain and my body starts to shake from been so cold. Allergies No Known Allergies Allergy (Verified 05/24/24 08:40) Medication List - Last Reconciled 05/24/24 by Shruthi Rios MD albuterol sulfate 90 mcg/actuation 2 puffs inhalation QID citalopram (Celexa) 10 mg PO DAILY lamotrigine ER 50 mg PO DAILY levonorgestrel (Mirena) intrauterine HPI Comments Details: This is a 38-year-old female who presents for evaluation of positive REFUGIO. The condition started around 8 years ago. Patient states that she gets episodes where she feels that her whole body is flushed, swollen and throbbing. She has generalized achiness and pain. Inability to get out of bed in the morning. She also states that she gets bumps on her legs that are worse when in her entire body is swollen. She denies any skin rashes, fevers or weight loss. She denies any history of DVT/PE. She is unaware of any family history of an autoimmune rheumatic disease. Patient is on disability due to anxiety, depression and bipolar disorder [facility] Medical History Bipolar 1 disorder Depression Anxiety Umbilical hernia Lipoma of abdominal wall delivery delivered Asthma Surgical History History of loop electrical excision procedure (LEEP) Hx of section Family History Paternal Grandmother Breast CA Social History Alcohol intake: unknown Patient Tobacco Use Status: Never used Tobacco Substance Use Type: Marijuana Current occupational status: disabled Female Reproductive History Menstrual Age of Menarche: 14 Total pregnancies: 1 Full term: 1 Review of Systems Const Reports fatigue, Reports headache(s), Reports weakness and Reports weight gain Eyes Reports blurry vision, Reports diplopia, Reports dry eyes and Reports itchy eyes ENT Reports dry mouth, Reports headache(s), Reports hearing loss and Reports hoarseness Card Reports dyspnea Resp Reports dyspnea and Reports wheezing GI Reports nausea Musc Reports muscle weakness Skin/Breast Reports alopecia, Reports photosensitivity and Reports unusual bruising Neuro Reports headache(s) and Reports weakness Psych Reports abnormal sleep pattern, Reports anxiety and Reports depression Endo Reports fatigue Aller/Immun Reports itchy eyes and Reports wheezing Physical Exam Vital Signs: Last Vital Signs Pulse 61 05/24/24 08:40 Resp 18 05/24/24 08:40 BP 115/72 05/24/24 08:40 Pulse Ox 99 05/24/24 08:40 Oxygen Delivery Method Room Air 05/24/24 08:40 BMI result Body Mass Index 28.0 Const General: cooperative, healthy appearing and comfortable Nutritional Appearance: overweight Orientation/consciousness: patient oriented x3 Limitations: no limitations HEENT Head: Yes normocephalic and Yes atraumatic Mouth: moist mucous membranes Resp Effort & Inspection: normal respiratory effort and able to speak in complete sentences Auscultation: clear to auscultation bilaterally Cardio Rate: regular rate Rhythm: regular rhythm Skin General skin exam: no rashes or lesions noted Neuro General: patient oriented x3 Extrem Other: No active synovitis 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 I do not see any signs suggestive of an autoimmune rheumatic disease upon my evaluation. clinical picture consistent with fibromyalgia Discussed management of fibromyalgia with patient. Is a noninflammatory, non-autoimmune central afferent processing disorder leading to a diffuse pain syndrome. Patient follows up regularly with psychologist and psychiatrist. Try to follow sleep hygiene practices. Consider a referral for a sleep study by her PCP. Patient would benefit from increased physical activity, either through formal physical therapy or by joining a gym. Advised patient that she should start activity slowly and increase as tolerated. Consider low-impact exercises such as walking, swimming, aqua therapy stretching, yoga. Follow-up with PCP Plan I spent 20 minutes reviewing patient's chart, evaluating patient, counseling patient and documenting in the chart Coding Level of Care Code New Pt Level 3 (37556) Diagnoses REFUGIO positive R76.8
[2024-05-24 08:40] VITALS: BP 115/72; PULSE 61; RESP 18; O2SAT 99; BMI 28.0
== END 2024-05-24 09:10 | disposition home or self-care (01) ==
PROVIDERS: PCP Family Medicine; Referring Provider Family Medicine; Visit Provider Student in an Organized Health Care Education/Training Program
DX: R76.8 Other specified abnormal immunological findings in serum (principal)
CPT/HCPCS: 99203

== ENCOUNTER → 2024-05-24 08:31 | Outpatient (BNVA) | payer MEDICAID, SELFPAY | PROVIDERS: PCP Family Medicine; Visit Provider Student in an Organized Health Care Education/Training Program | DX: R76.8 Other specified abnormal immunological findings in serum (principal) | CPT/HCPCS: 99202 ==

== ENCOUNTER 2024-08-31 08:42 | Emergency (ER) | payer MEDICAID, SELFPAY ==
--- NOTE | ~2024-08-31 | CT_ITS ---
EXAMINATION: CT ABDOMEN AND PELVIS WITH CONTRAST CLINICAL INFORMATION: Left lower quadrant and left flank pain for one week COMPARISON: 05/23/2013 and 02/26/2024 TECHNIQUE: Multidetector volumetric images were obtained from the superior aspect of the liver through the pubic symphysis following administration 77 mL of Omnipaque 350 intravenous contrast. Sagittal and coronal reformatted images were obtained on the technologist's workstation. Oral contrast: No This CT examination was performed using dose optimization techniques as appropriate, variously including the following: *Automated exposure control *Adjustment of mA and/or kV according to patient size (this includes techniques or standardized protocols for targeted exams where dose is matched to indication/reason for exam; i.e. extremities or head) *Use of iterative reconstruction technique DLP: 511 mGy-cm FINDINGS: LUNG BASES: The visualized lung bases are unremarkable. LIVER, GALLBLADDER, AND BILIARY TREE: The liver is normal in size, shape, and attenuation. There is a 2.2 cm peripherally enhancing hypervascular mass in the subcapsular right hepatic lobe, most likely a flash filling hemangioma. The lesion is unchanged in size from precontrast examination of 02/26/2024 and 05/23/2013 No focal hepatic lesion or biliary ductal dilatation is present. The gallbladder is unremarkable with no evidence of radiopaque gallstones, gallbladder wall thickening, or obvious pericholecystic inflammatory changes. PANCREAS: Unremarkable. SPLEEN: There is a 10 mm subcapsular low-density lesion in the spleen, not visualized on prior noncontrast examinations, though too small to characterize. ADRENAL GLANDS: Unremarkable. KIDNEYS AND URETERS: The kidneys are normal in size, shape, and attenuation. No hydronephrosis, hydroureter, or calculi seen. No perinephric stranding. BLADDER: Unremarkable. GASTROINTESTINAL TRACT: The small and large bowel are unremarkable. The appendix is unremarkable. ABDOMINAL WALL: There is a small stable fat containing umbilical hernia. LYMPH NODES: Normal. VASCULAR: Unremarkable. PELVIC VISCERA: There is a dominant crenulated 14 mm follicle in the left adnexa, and a small to moderate amount of free fluid is evident in the left pelvis and cul-de-sac, presumably physiologic. There is an intrauterine contraceptive device. The right adnexa is unremarkable. No suspicious pelvic mass is evident. OSSEOUS STRUCTURES: Unremarkable. CT/CT abdomen pelvis w IV con IMPRESSION: 1. Dominant crenulated left adnexal follicle with small to moderate amount of free fluid in the left pelvis and cul-de-sac, presumably physiologic. 2. Stable 2.2 cm peripherally enhancing hypervascular mass in the right hepatic lobe, most likely a flash filling hemangioma. 3. Small 10 mm low-density lesion in the spleen, too small to characterize, but statistically likely benign. No specific follow-up recommended. Fleischner guidelines were followed. Electronically signed by: Cesario Reyes MD 08/31/2024 12:51 PM EDT
--- NOTE | ~2024-08-31 | US_ITS ---
EXAMINATION: US PELVIS CLINICAL INFORMATION: Left lower quadrant pain. Evaluate for ovarian torsion. COMPARISON: CT abdomen and pelvis same date TECHNIQUE: Ultrasound of the pelvis is performed using both transabdominal and transvaginal transducers along with Doppler. Transvaginal imaging is performed due to inadequate visualization transabdominally. FINDINGS: Uterus: The uterus is anteverted and measures 8.4 x 4.2 x 4.6 cm. IUD is present which precludes adequate evaluation of the endometrial echo complex. . The uterus is smooth in contour and has normal myometrial echogenicity. No visible fibroid. Adnexa: Both ovaries are visualized. There is normal color flow to the adnexa. There is no ovarian torsion. There is trace fluid in the cul-de-sac. Nabothian cyst with calcifications incidentally are observed. Right ovary measures 3.6 x 2.1 x 2.2 cm. Cyst in the right ovary at 15 x 13 x 14 mm. Small amount of fluid adjacent to the right adnexa. Left ovary measures 3.8 x 2.2 x 2.1 cm. No adjacent fluid. Small crenulated cyst likely physiologic at 19 x 14 x 17 mm. US/US pelvic ovarian doppler IMPRESSION: Color flow in both ovaries is normal. No evidence for ovarian torsion as questioned. Bilateral ovarian cysts are present. Findings correlate well with the recent CT. Electronically signed by: Juan A Riley MD 08/31/2024 04:49 PM EDT
--- NOTE | ~2024-08-31 | US_ITS ---
EXAMINATION: US PELVIS CLINICAL INFORMATION: Left lower quadrant pain. Evaluate for ovarian torsion. COMPARISON: CT abdomen and pelvis same date TECHNIQUE: Ultrasound of the pelvis is performed using both transabdominal and transvaginal transducers along with Doppler. Transvaginal imaging is performed due to inadequate visualization transabdominally. FINDINGS: Uterus: The uterus is anteverted and measures 8.4 x 4.2 x 4.6 cm. IUD is present which precludes adequate evaluation of the endometrial echo complex. . The uterus is smooth in contour and has normal myometrial echogenicity. No visible fibroid. Adnexa: Both ovaries are visualized. There is normal color flow to the adnexa. There is no ovarian torsion. There is trace fluid in the cul-de-sac. Nabothian cyst with calcifications incidentally are observed. Right ovary measures 3.6 x 2.1 x 2.2 cm. Cyst in the right ovary at 15 x 13 x 14 mm. Small amount of fluid adjacent to the right adnexa. Left ovary measures 3.8 x 2.2 x 2.1 cm. No adjacent fluid. Small crenulated cyst likely physiologic at 19 x 14 x 17 mm. US/US pelvic and transvaginal IMPRESSION: Color flow in both ovaries is normal. No evidence for ovarian torsion as questioned. Bilateral ovarian cysts are present. Findings correlate well with the recent CT. Electronically signed by: Juan A Riley MD 08/31/2024 04:49 PM EDT RP
[2024-08-31 09:04] VITALS: BP 131/77; PULSE 66; RESP 16; TEMP 37; O2SAT 98; BMI 28.3
[2024-08-31 09:30] LABS: MANUAL DIFF FLAG NO
[2024-08-31 09:31] LABS: Basophils Percent Auto 0.5 % (0-2); Eosinophils Absolute Auto 0.1 X10*3/uL (0.0-0.4); Eosinophils Percent Auto 1.2 % (0-4); Hematocrit 37.7 % (37.0-47.0); Imm Gran Abs Auto 0.05 X10*3/uL (0.00-0.03); Imm Gran Pct Auto 0.6 % (0.0-0.4); Lymphocytes Percent Auto 24.4 % (20-40); Mean Corpuscular HGB Conc 31.8 g/dl (31.0-35.0); Mean Corpuscular Volume 87.9 fL (80.0-98.0); Mean Platelet Volume 10.5 fL (9.4-12.3); Monocytes Absolute Auto 0.6 X10*3/uL (0.1-1.2); Monocytes Percent Auto 7.2 % (2-11); Neutrophils Absolute Auto 5.4 x10*3/uL (2.0-8.3); Neutrophils Percent Auto 66.1 % (45-73); Platelet Count 200 X10*3/uL (160-400); Red Blood Count 4.29 X10*6/uL (4.20-5.50); Red Cell Distribution Width 13.2 % (11.0-16.0); White Blood Count 8.2 X10*3/uL (4.8-10.8)
[2024-08-31 09:35] LABS: UPreg QC Valid YES; Urine Pregnancy NEGATIVE (NEGATIVE)
[2024-08-31 10:13] LABS: Alanine Aminotransferase 11 U/L (0-31); Albumin Level 4.1 g/dL (3.5-5.0); Alkaline Phosphatase 44 U/L (39-117); Anion Gap 11 (12-20); Aspartate Amino Transferase 12 U/L (5-31); Bilirubin Direct 0.1 mg/dL (0.0-0.5); Bilirubin Total 0.3 mg/dL (0.0-1.0); Blood Urea Nitrogen 12 mg/dL (9-16); Calcium 8.8 mg/dL (8.4-10.2); Carbon Dioxide 27 mmol/L (22-29); Chloride 109 mmol/L (96-108); Creatinine Clr Calc Pharmacy 110.2; Estimated Glomerular Filt Rate > 60; Glucose Random 90 mg/dL (60-115); Lipase 42 U/L (8-78); Potassium 3.6 mmol/L (3.3-5.1); Sodium 143 mmol/L (135-145); Total Protein 6.4 g/dL (6.5-8.0)
[2024-08-31 10:23] LABS: Appearance Urine Hazy; Color Urine Yellow; Glucose Urine UA Negative (Negative); Leukocyte Esterase Urine Negative (Negative); Nitrite Urine Negative (Negative); Specific Gravity - Urine 1.025 (1.005-1.025); UMIC TRIGGER UACC YES; Urine Blood Small (1+) (Negative); Urine Ketones Negative (Negative); Urine Protein Negative (Neg-Trace)
[2024-08-31 10:37] LABS: WBC Urine 0-5 /HPF (0-5)
[2024-08-31 10:38] LABS: Bacteria Urine None Seen (None Seen); Hyaline Casts Urine 0-2 /LPF (0-2)
--- NOTE | 2024-08-31 11:03 | ED_ITS ---
HPI - Abdominal Pain General Chief Complaint: Abdominal Pain Stated Complaint: Lower abd pain, back pain Time Seen by Provider: 08/31/24 11:02 Source: patient Mode of arrival: ambulatory Limitations: no limitations History of Present Illness ED Provider: Dr. Tejas Soto HPI narrative: 39-year-old female with a history of asthma who presents emergency department for evaluation of left lower quadrant and left flank pain x1 week. Patient states she does have chronic back pain but this pain is different than her chronic pain. Patient states the pain started suddenly 1 week prior and has been constant. She describes the pain is a pressure pain which is 8.5/10. Pain does radiate to her left flank. Patient states she has had urinary frequency and pressure when she urinates. She denied fever or chills. She denied chest pain shortness of breath. She denied nausea vomiting or diarrhea. Patient states she has been taking ibuprofen, naproxen and Tylenol with no relief for pain. Related Data Home Medications ?Medication ?Instructions ?Recorded ?Confirmed levonorgestrel 21 mcg/24 hr (up to intrauterine 07/05/21 03/11/24 8 years) 52 mg intrauterine device (Mirena) citalopram 10 mg tablet (Celexa) 10 mg PO DAILY 07/10/22 03/11/24 albuterol sulfate 90 mcg/actuation 2 puff inhalation QID 10/06/23 03/11/24 aerosol inhaler lamotrigine 50 mg tablet,extended 50 mg PO DAILY 10/06/23 03/11/24 release 24 hr Previous Rx's ?Medication ?Instructions ?Recorded ondansetron 4 mg disintegrating 4 mg PO Q6-8H PRN nausea and 08/31/24 tablet vomiting #14 tabs oxycodone 5 mg tablet 5 mg PO Q6H PRN pain #10 tabs 08/31/24 Allergies Allergy/AdvReac Type Severity Reaction Status Date / Time No Known Allergies Allergy Verified 08/31/24 09:08 Review of Systems Review of Systems Yes all other systems are reviewed and are negative PMF Past Medical History Medical History Bipolar 1 disorder Depression Anxiety Umbilical hernia Lipoma of abdominal wall delivery delivered Asthma Surgical History History of loop electrical excision procedure (LEEP) Hx of section Family History Family History Paternal Grandmother Breast CA Social History Social History Alcohol intake: unknown Patient Tobacco Use Status: Never used Tobacco Smoked in Last 30 Days: No Use of substances other than those prescribed or required for medical reasons: No Substance Use Type: Marijuana Advance Directives: No Do you have a plan to hurt others: No Plan Current occupational status: disabled Physical Exam ED Vital Signs: Vital Signs - 24 hr 08/31/24 09:04 08/31/24 11:06 08/31/24 16:38 Temperature 98.6 F 98.4 F 98.6 F Pulse Rate 66 58 71 Respiratory Rate 16 18 16 Blood Pressure 131/77 128/85 127/79 Pulse Oximetry 98 98 Oxygen Delivery Method Room Air Room Air Room Air BMI result Body Mass Index 28.3 Vital signs were normal Exam: General: Awake, alert in no distress Head: Normocephalic, atraumatic EENT: PERRL, Lids normal, sclera normal, conjunctiva normal, nose normal , ears normal, throat without erythema or exudates Neck: Supple, no adenopathy Lung: breath sounds symmetric, no wheezing, rales or rhonchi Chest: symmetric movement, nontender Heart: regular rate and rhythm, normal S1, S2 no murmurs or rubs Abdomen: soft, moderate left lower quadrant and suprapubic tenderness nondistended, normal bowel sounds Back: no vertebral tenderness, mild to moderate left-sided CVAT Extremities: no deformities, moves all extremities symmetrically Neuro: Awake, alert, oriented, normal speech, cranial nerves intact, moves all extremities symmetrically Psych: Pleasant, cooperative Medical Decision Making Medical Decision Making MDM Narrative: 39-year-old female with a history of asthma who presents emergency department for evaluation of left lower quadrant and left flank pain x1 week. Patient states she does have chronic back pain but this pain is different than her chronic pain. Patient states the pain started suddenly 1 week prior and has been constant. She describes the pain is a pressure pain which is 8.5/10. Pain does radiate to her left flank. Patient states she has had urinary frequency and pressure when she urinates. She denied fever or chills. She denied chest pain shortness of breath. She denied nausea vomiting or diarrhea. Patient states she has been taking ibuprofen, naproxen and Tylenol with no relief for pain. Vital signs were normal. Physical examination revealed left lower quadrant and suprapubic tenderness. Differential diagnosis: ?Includes but is not limited to diverticulitis, pancreatitis, ovarian cyst, ovarian torsion, urinary tract infection, electrolyte abnormalities, anemia Course: My interpretation patient's laboratory evaluation as follows: CBC was normal. CMP was normal. Lipase was negative. Urine test was negative. Urinalysis was positive for blood. Microscopic revealed 6-10 RBCs, 0-5 WBCs with no bacteria. CT scan of the abdomen pelvis revealed free fluid in the pelvis Lab Data MDM Lab Attestation statement: I reviewed the patient's lab results. 08/31/24 09:20 08/31/24 09:20 Labs: Lab Results 08/31/24 Range/Units 09:20 WBC 8.2 (4.8-10.8) X10*3/uL RBC 4.29 (4.20-5.50) X10*6/uL Hgb 12.0 (12.0-16.0) g/dl Hct 37.7 (37.0-47.0) % MCV 87.9 (80.0-98.0) fL MCH 28.0 (27.0-33.0) pg MCHC 31.8 (31.0-35.0) g/dl RDW 13.2 (11.0-16.0) % Plt Count 200 (160-400) X10*3/uL MPV 10.5 (9.4-12.3) fL Immature Gran % (Auto) 0.6 H (0.0-0.4) % Neut % (Auto) 66.1 (45-73) % Lymph % (Auto) 24.4 (20-40) % Alfalfa % (Auto) 7.2 (2-11) % Eos % (Auto) 1.2 (0-4) % Baso % (Auto) 0.5 (0-2) % Lymph # (Auto) 2.0 (1.2-4.9) X10*3/uL [place]a # (Auto) 0.6 (0.1-1.2) X10*3/uL Eos # (Auto) 0.1 (0.0-0.4) X10*3/uL Baso # (Auto) 0.0 (0.0-0.2) X10*3/uL Abs Immat Gran (auto) 0.05 H (0.00-0.03) X10*3/uL Absolute Neuts (auto) 5.4 (2.0-8.3) x10*3/uL Absolute Nucleated RBC 0.000 (0.0-0.012) X10*3/uL Nucleated RBC % (auto) 0.0 (0.0-0.2) /100WBC Sodium 143 (135-145) mmol/L Potassium 3.6 (3.3-5.1) mmol/L Chloride 109 H (96-108) mmol/L Carbon Dioxide 27 (22-29) mmol/L Anion Gap 11 L (12-20) BUN 12 (9-16) mg/dL Creatinine 0.66 (0.5-1.4) mg/dL Estim Creat Clear Calc 110.2 Estimated GFR > 60 Random Glucose 90 (60-115) mg/dL Calcium 8.8 (8.4-10.2) mg/dL Total Bilirubin 0.3 (0.0-1.0) mg/dL Direct Bilirubin 0.1 (0.0-0.5) mg/dL AST 12 (5-31) U/L ALT 11 (0-31) U/L Alkaline Phosphatase 44 (39-117) U/L Total Protein 6.4 L (6.5-8.0) g/dL Albumin 4.1 (3.5-5.0) g/dL Lipase 42 (8-78) U/L Urine Color Yellow Urine Appearance Hazy Urine pH 6.0 (5.0-9.0) Ur Specific [place] 1.025 (1.005-1.025) Urine Protein Negative (Neg-Trace) mg/dL Urine Glucose (UA) Negative (Negative) mg/dL Urine Ketones Negative (Negative) mg/dL Urine Blood Small (1+) H (Negative) Urine Nitrite Negative (Negative) Ur Leukocyte Esterase Negative (Negative) Urine RBC 6-10 H (0-2) /HPF Urine WBC 0-5 (0-5) /HPF Ur Squamous Epith Cells 6-10 (0-2) /HPF Urine Bacteria None Seen (None Seen) Hyaline Casts 0-2 (0-2) /LPF Urine Test NEGATIVE (NEGATIVE) Radiology Impression Discussion of test interpretation with radiology: I have reviewed the radiologist's reading. Radiologist Impression: CT abdomen pelvis w IV con IMPRESSION: 1. Dominant crenulated left adnexal follicle with small to moderate amount of free fluid in the left pelvis and cul-de-sac, presumably physiologic. 2. Stable 2.2 cm peripherally enhancing hypervascular mass in the right hepatic lobe, most likely a flash filling hemangioma. 3. Small 10 mm low-density lesion in the spleen, too small to characterize, but statistically likely benign. No specific follow-up recommended. Fleischner guidelines were followed. Electronically signed by: Cesario Reyes MD 08/31/2024 12:51 PM EDT RP Dictated By: Cesario Reyes MD Medications Administered Discontinued Medications Generic Name Dose Route Start Last Admin Trade Name Freq PRN Reason Stop Dose Admin Hydromorphone HCl 1 mg 08/31/24 15:28 08/31/24 15:44 Hydromorphone Hcl 1 Mg/Ml Syringe IVPUSH 08/31/24 15:29 1 mg ONCE STA Administration Protocol Sodium Chloride 1,000 mls @ 999 mls/hr 08/31/24 11:20 08/31/24 13:09 Ns IV 08/31/24 12:20 Infused .Q1H1M STA Infusion Iohexol 77 ml 08/31/24 12:31 08/31/24 12:31 Iohexol 350 Mg/Ml 100 Ml Infus..Btl IV 08/31/24 12:32 77 ml ONCE ONE Administration Morphine Sulfate 4 mg 08/31/24 11:20 08/31/24 11:58 Morphine Sulfate 4 Mg/Ml Cartridge IVPUSH 08/31/24 11:21 4 mg ONCE STA Administration Protocol Morphine Sulfate 4 mg 08/31/24 13:16 08/31/24 13:23 Morphine Sulfate 4 Mg/Ml Cartridge IVPUSH 08/31/24 13:17 4 mg ONCE STA Administration Protocol Discharge Plan Discharge Clinical Impression: Abdominal pain Qualifiers: Abdominal location: left lower quadrant Qualified Code(s): R10.32 - Left lower quadrant pain Ovarian cyst Qualifiers: Laterality: left Qualified Code(s): N83.202 - Unspecified ovarian cyst, left side Patient Disposition: Home, Self-Care Instructions: Ovarian Cyst (ED) Additional Instructions: Your blood work was unremarkable. Your urine test was negative for infection. Your test was negative. The CT scan of your abdomen pelvis did reveal a 1.4 cm left ovarian cyst with fluid in the pelvis suggesting that you may have had a ruptured ovarian cyst as the cause of your pain. The ultrasound of your pelvis revealed good blood flow to both ovaries and no twisting of the ovaries which is reassuring. At this time not sure what is causing your pain but it may be secondary to a ruptured ovarian cyst. Take ibuprofen 200 mg pills, 3 pills every 6 hours as needed for pain. Take Tylenol (acetaminophen) 500 mg pills, 2 pills every 6 hours as needed for pain. Take Zofran ODT 4 mg pills, 1 pill dissolved in your mouth every 8 hours as needed for nausea and vomiting. For pain not relieved by ibuprofen or Tylenol take oxycodone 5 mg pills, 1 pill every 4 hours as needed for pain. Do not drive or work while taking this medication since they can cause sleepiness. Oxycodone is a narcotic medication that can be addicting. If you are concerned about addiction you can ask the pharmacist for less pills or do not get this prescription filled. Follow-up with your doctor in 2 days. Please return to the emergency department if your symptoms get worse or if you develop any symptoms that are concerning to you. Prescriptions: New ondansetron 4 mg tablet,disintegrating 4 mg PO Q6-8H PRN (Reason: nausea and vomiting) Qty: 14 0RF oxycodone 5 mg tablet 5 mg PO Q6H PRN (Reason: pain) Qty: 10 0RF Rx Instructions: Patient may request partial refill; Partial Fill upon patient request. No Action citalopram [Celexa] 10 mg tablet 10 mg PO DAILY Mirena 20 mcg/24 hours (6 yrs) 52 mg intrauterine device intrauterine lamotrigine 50 mg tablet extended release 24hr 50 mg PO DAILY albuterol sulfate 90 mcg/actuation HFA aerosol inhaler 2 puff inhalation QID Print Language: Lithuanian
[2024-08-31 11:06] VITALS: BP 128/85; PULSE 58; RESP 18; TEMP 36.9; O2SAT 98
[2024-08-31] MEDS: Morphine Sulfate 4 MG/ML CARTRIDGE IVPUSH ×2 (11:58→13:23)
[2024-08-31] MEDS: 0.9 % Sodium Chloride 1,000 ML 999 ML IV (11:59)
[2024-08-31] MEDS: iohexoL 350 MG/ML 100 ML INFUS..BTL 77 ML IV (12:31)
[2024-08-31] MEDS: HYDROmorphone HCl 1 MG/ML SYRINGE IVPUSH (15:44)
[2024-08-31 16:38] VITALS: BP 127/79; PULSE 71; RESP 16; TEMP 37
[2024-08-31 17:24] VITALS: BP 128/70; PULSE 69; RESP 16; TEMP 36.7; O2SAT 97
== END 2024-08-31 17:29 | disposition home or self-care (01) ==
PROVIDERS: Emergency Provider Emergency Medicine Emergency Medical Services; PCP Family Medicine
DX: N83.202 Unspecified ovarian cyst, left side (principal); R10.32 Left lower quadrant pain; M54.50 Low back pain, unspecified; R35.0 Frequency of micturition; R10.2 Pelvic and perineal pain; R11.2 Nausea with vomiting, unspecified; Z79.899 Other long term (current) drug therapy
CPT/HCPCS: 36415; 74177; 76830; 76856; 80048; 80076; 81001; 81003; 81025; 83690; 85025; 93975; 96361; 96374; 96375; 96376; 99284; 99285; J1171; J2270; Q9967

== ENCOUNTER 2024-10-11 10:34 | Outpatient (AMB) | payer MEDICAID, SELFPAY ==
--- NOTE | 2024-10-11 10:40 | MHC.OFFVIS ---
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 Technician Services: Engineering Laboratory Technician Present Information Interpreted: clinical only Welt Butter Hand: Welt Butter Hand Present Allergies No Known Allergies Allergy (Verified 10/11/24 10:42) Medication List - Last Reconciled 10/11/24 by Ericka Martinez CNM albuterol sulfate 90 mcg/actuation 2 puffs inhalation QID citalopram (Celexa) 10 mg PO DAILY lamotrigine ER 50 mg PO DAILY levonorgestrel (Mirena) intrauterine ondansetron 4 mg PO Q6-8H PRN Is last menstrual period known: No (IUD) HPI HPI 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 Plan made in his show discussion for repeat Pap 1 year from now though discrepancy on when last Pap was done occurred while exam was done so Pap taken out of abundance of caution. Patient has her 2nd Mirena she is using for control she has a 12-year-old with autism that is very challenging it was a very challenging traumatic delivery she is very clear that she does not want to have another child at this stage of her life and she is terrified of getting she is sexually active with her partner 12-13 years. She had no trouble with the 1st Mirena but the 2nd Mirena was so painful because it was status post LEEP that she has been traumatized by that is wondering if she can be put to sleep to replace the Mirena she knows that it can be good for 5-8 years currently and it has now been in 7 years and she is getting very anxious about it wearing out and not protecting from anymore additionally she has terrified of the replacement and wonders if she can have it done under anesthesia. She denies any other health problems though she was diagnosed with fibromyalgia this year she recently had a pain in her abdomen and went to ER and they told her she had an ovarian cyst and she has a follow-up ultrasound for that too. [facility] Medical History Bipolar 1 disorder Depression Anxiety Umbilical hernia Lipoma of abdominal wall delivery delivered Asthma Surgical History History of loop electrical excision procedure (LEEP) Hx of section Family History Paternal Grandmother Breast CA Social History Alcohol intake: unknown Patient Tobacco Use Status: Never used Tobacco Substance Use Type: Marijuana Current occupational status: disabled Female Reproductive History Menstrual Age of Menarche: 14 Duration of menses: <3 days control method: progestin IUCD Total pregnancies: 1 Full term: 1 Date of last pap smear: 07/10/22 (negative,2020,neg) History of abnormal pap smear: Yes (HX LEEP) Physical Exam Vital Signs: Last Vital Signs BP 120/70 10/11/24 10:42 BMI result Body Mass Index 27.8 Const General: healthy appearing, comfortable, no acute distress, well developed and alert Nutritional Appearance: average body habitus Orientation/consciousness: patient oriented x3 Limitations: no limitations HEENT Head: Yes normocephalic Neck Neck: Yes normal visual inspection Chest Chest palpation & inspection: normal inspection of the chest Breast/axilla inspection: normal inspection of the breasts and normal inspection of the axillae Breast/axilla palpation: normal palpation of the breasts and normal palpation of the axillae Resp Effort & Inspection: normal respiratory effort GI Inspection: Yes normal to inspection, No Abdominal wall edema and No distended Palpation (GI): Soft to palpation and nontender Other: Normal external exam normal moist vagina end of light menses present. Cervix parous pink smooth very tightly closed status post LEEP (2013), Mirena string not able to be tease from cervix during Pap. Samples taken for testing for STIs as well cervix long close mobile nontender uterus midposition mobile nontender adnexa not enlarged good tone with Kegel. General: Yes bladder normal to palpation External Female Exam: normal external appearance and normal appearance of the urethra Speculum Exam - Vagina: normal appearance of the vagina, normal palpation and normal vaginal discharge Speculum Exam - Cervix: normal appearance of the cervix, normal palpation and nontender Bimanual exam- vagina & uterus: normal bimanual exam, normal palpation, uterine size normal, bladder normal to palpation, consistency normal, normal palpation, uterine mobility normal, uterine shape normal, No Cervical tenderness present, non-tender and no cervical motion tenderness Bimanual Exam- Adnexa, other: normal adnexae, no masses, normal and No adnexal tenderness Neuro General: patient oriented x3 Assessment & Plan Assessment & Plan (1) Hx of abnormal cervical Pap smear: Comment: SACHIN 2-3 2013, normals 2014,2015,2018; pap 07/05/21= neg w neg HPV; 07/10/2022 Pap is negative with negative HPV. (discussed plan for Pap in 2024, however during the exam, there was a discrepancy about when the last Pap was done, so out of an abundance of caution, Pap was done 10/11/2024. Code(s): Z87.42 - Personal history of other diseases of the female genital tract Category: Medical (2) History of loop electrical excision procedure (LEEP): Comment: Cervix tightly scarred. Previous Mirena exchange status post LEEP was extremely traumatic for patient. Code(s): Z98.890 - Other specified postprocedural states Category: Surgical (3) Presence of 52 mg levonorgestrel-releasing intrauterine device (IUD): Comment: Strings are not visible patient has been educated about signs and symptoms that would indicate it is no longer working for contraceptive benefit and will alert us at 1st sign a plan for replacement made.; see note for extensive discussion strings still not visible patient will be scheduling consultation visit with hse manager to discuss replacement. Code(s): Z97.5 - Presence of (intrauterine) contraceptive device Category: Social Hx (4) Well woman exam with routine gynecological exam: Code(s): Z01.419 - Encounter for gynecological examination (general) (routine) without abnormal findings Category: Medical Plan -----Discussed in this visit the following: healthy balanced diet, regular and consistent exercise, getting recommended health screens, doing the best she can for her particular health concerns, kegel exercises, pap smear screening and followup recommendations, mammography screening and SBE, normal changes in cycles in her life stage--- . Discussed anticipatory changes for when she starts approaching menopause discussed mammograms starting at age 40. Much discussion about her history of LEEP and the Mirena and the trauma she experienced a both with childbirth in view with replacement of the last Mirena status post LEEP, such that she isn't red replacing additionally she has a history there is severe menses so she is grateful for the light periods she gets with this Mirena so she had would like to replace it. She is asking if she can be put to replace the Mirena. Discussed that she would have to have that conversation with hse manager and she should raise all of her concerns. She is also very terrified getting she knows that technically can used up to 8 years as so far, she has not experienced change in her menses, so she probably still has time. she wants proactive and she will schedule a visit upcoming so that she can have a consultation and plan accordingly. Orders: Orders Pap Smear Today Z01.419 - Encounter for gynecological examination (general) (routine) without abnormal findings Bacterial Vaginosis Panel Today N89.8 - Other specified noninflammatory disorders of vagina CT NG by PCR Today N89.8 - Other specified noninflammatory disorders of vagina, Z20.2 - Contact with and (suspected) exposure to infections with a predominantly sexual mode of transmission Coding Level of Care Code Est Pt Prev Care 18-39y(51846) Diagnoses Hx of abnormal cervical Pap smear Z87.42 History of loop electrical excision procedure (LEEP) Z98.890 Presence of 52 mg levonorgestrel-releasing intrauterine device (IUD) Z97.5 Well woman exam with routine gynecological exam Z01.419
[2024-10-11 10:42] VITALS: BP 120/70; BMI 27.8
== END 2024-10-11 11:29 | disposition home or self-care (01) ==
PROVIDERS: PCP Family Medicine; Visit Provider Advanced Practice Midwife
DX: Z87.42 Personal history of other diseases of the female genital tract (principal); Z98.890 Other specified postprocedural states; Z97.5 Presence of (intrauterine) contraceptive device; Z01.419 Encounter for gynecological examination (general) (routine) without abnormal findings
CPT/HCPCS: 99395

== ENCOUNTER 2024-10-11 10:34 | Outpatient (REF) | payer MEDICAID, SELFPAY ==
[2024-10-12 10:44] LABS: HPV 16,18/45 See PAP report
[2024-10-12 11:45] LABS: Bacterial Vaginosis PCR NEGATIVE (Negative); Candida Group PCR NOT DETECTED (Not Detect); Candida glab krusei PCR NOT DETECTED (Not Detect); Trichomonas vaginalis PCR NOT DETECTED (Not Detect)
[2024-10-12 12:18] LABS: CT PCR NOT DETECTED (Not Detect.); NG PCR NOT DETECTED (Not Detect.)
== END 2024-10-11 10:35 | disposition home or self-care (01) ==
LOC: HO.LAB 10:34
PROVIDERS: PCP Family Medicine; Visit Provider Advanced Practice Midwife
DX: Z01.419 Encounter for gynecological examination (general) (routine) without abnormal findings (principal); N89.8 Other specified noninflammatory disorders of vagina; Z20.2 Contact with and (suspected) exposure to infections with a predominantly sexual mode of transmission; Z97.5 Presence of (intrauterine) contraceptive device; Z87.42 Personal history of other diseases of the female genital tract
CPT/HCPCS: 0352U; 87491; 87591; 87624; 88175; 99395

== ENCOUNTER 2024-11-03 10:39 | Outpatient (REF) | payer MEDICAID, SELFPAY | END 2024-11-03 10:40 | disposition home or self-care (01) | LOC: HO.US 10:39 | PROVIDERS: PCP Family Medicine; Visit Provider Family Medicine | DX: N83.202 Unspecified ovarian cyst, left side (principal) | CPT/HCPCS: 76830; 76856 ==

== ENCOUNTER 2024-12-29 12:07 | Outpatient (AMB) | payer MEDICAID, SELFPAY ==
--- NOTE | 2024-12-29 12:08 | MHC.OFFVIS ---
Vital Signs 12/29/24 12:16 Height 5 ft 3 in Weight 161 lb BMI 28.5 BP 120/72 Intake Visit Reasons: Consult for mirena replasment Road Production General Manager: Road Production General Manager Present (Alicia) Accompanied by: Self / Same As Patient Allergies No Known Allergies Allergy (Verified 12/29/24 12:15) HPI Comments Details: Presenting referred by Ericka Martinez CNM for Mirena IUD removal. IUD string was not seen on pelvic exam. Pelvic ultrasound done on 11/03/2024 showed the following: IMPRESSION: IUD in place within the endometrial cavity. [facility] Medical History Bipolar 1 disorder Depression Anxiety Umbilical hernia Lipoma of abdominal wall delivery delivered Asthma Surgical History History of loop electrical excision procedure (LEEP) Hx of section Family History Paternal Grandmother Breast CA Social History Alcohol intake: unknown Patient Tobacco Use Status: Never used Tobacco Substance Use Type: Marijuana Current occupational status: disabled Female Reproductive History Menstrual Age of Menarche: 14 Duration of menses: 3-5 days Date of last menstrual period: 11/22/24 control method: progestin IUCD (Mirena) Total pregnancies: 1 Full term: 1 Review of Systems Const All systems reviewed & are unremarkable except as noted in HPI and below Physical Exam General: Yes no CVA tenderness External Female Exam: normal external appearance and normal appearance of the urethra Speculum Exam - Vagina: normal appearance of the vagina, normal palpation, no lesions and no masses Speculum Exam - Cervix: normal appearance of the cervix, normal palpation, no lesions, no masses and nontender Bimanual exam- vagina & uterus: normal bimanual exam, normal palpation, uterine size normal, normal palpation, uterine shape normal, No Cervical tenderness present and non-tender Bimanual Exam- Adnexa, other: normal adnexae Back/Spine/Pelvis Back: no CVA tenderness Assessment & Plan Assessment & Plan (1) IUD strings lost: Code(s): T83.32XA - Displacement of intrauterine contraceptive device, initial encounter Category: Medical Plan: Discussed with the patient the finding on pelvic exam no IUD string identified, with IUD in place by ultrasound, attempted IUD removal, could not be tolerated by the patient, recommended hysteroscopic IUD removal. The patient has like to think about it and get back to me as soon as possible to schedule the procedure Explained to the patient positive REFUGIO is associated with an increase in the risk of thrombosis in addition to Mirena IUD. Options of control were discussed with the patient including sterilization the patient would like to discuss vasectomy with her partner and get back to me. All questions answered, the patient verbalized understanding Coding Level of Care Code New Pt Level 3 (15968) Diagnoses IUD strings lost T83.32XA
[2024-12-29 12:16] VITALS: BP 120/72; BMI 28.5
--- OUTSIDE RECORDS SUMMARY | 2024-12-29 13:46 | XMS_ITS | Encounter Summary ---
Author Organization [employer] Address [address] [place] [address] Care Team Providers Care Communication Consultant Name Role Phone Courtney Davila MD Primary Care Provider [phone] Reason for Visit * Reason Comments Med Refill Encounter Details Date Type Department Care Team ([facility] st Contact Info) Description 08/17/2024 Refill [facility] [address] [place] [address] Kristy Stevens MD [address] [place] [address] Social History Tobacco Use Types Packs/Day Years Used Date Smoking Tobacco: Former Cigarettes 1 6 0 11/17/2011 - 11/17/2017 Passive Smoke Exposure: Current Smokeless Tobacco: Never Alcohol Use Standard Drinks/Week Comments Never 0 (1 standard drink = 0.6 oz pur e alcohol) Depression Answer Date Recorded Patient Health Questionnaire-9 Score 12 07/09/2024 Patient Health Questionnaire-9 Score 12 07/09/2024 Last PHQ-9: Questionnaire Data Not on file 0 07/09/2024 Housing Stability Answer Date Recorded What is your housing situation today? I have kelton suero 02/25/[address] you li ve. Do you have problems with any of the following? None of the above 02/25/2024 Food Insecurity Answer Date Recorded Within the past 12 months, y ou worried that your food would run out before you got money to buy more: Never True 02/25/2024 Within the past 12 months,th e food you bought just didn't last and you didn't have enough money to get more: Never True 08/2024 Transportation Answer Date Recorded In the past 12 months, has l ack of transportation kept you from medical appts, meetings, work or from getting things needed for daily living? No 02/25/2024 Utilities Answer Date Recorded In the past 12 months, has t he electric, gas, oil or water company threatened to shut off services in your home? No 02/25/2024 Depression Answer Date Recorded Patient Health Questionnaire-2 Score 3 07/09/2024 Comments Unknown Sex and Gender Information Value Date Recorded Sex Assigned at Female 09/16/2022 10:16 AM EDT Legal Sex Female 10:16 AM EDT Gender Identity Female 09/16/2022 10:16 AM EDT Sexual Orientation Straight 07/09/2024 11 :57 AM EDT documented as of this encounter Plan of Treatment Not on file documented as of this encounter Visit Diagnoses Not on filedocumented in this encounter Additional Health Concerns Assessment Noted Time PHQ-9 Depression Total Score: 12 024 9:22 AM EDT documented as of this encounter Care Teams Communication Consultant Relationship Specialty Start Date End Date Courtney Davila MD [address] [place] [address] PCP - General Family Medicine 03/04/24 Yony Barbosa MD Psychiatrist Psychiatry 11/17/18 documented as of this encounter
--- OUTSIDE RECORDS SUMMARY | 2024-12-29 13:46 | XMS_ITS | Clinical Summary ---
Author Organization [employer] Address [address] [place] [address] Care Team Providers Care Footwear Sales Coordinator Name Role Phone Courtney Davila MD Primary Care Provider [phone] Allergies No known active allergies Medications fluticasone-sa lmeterol (Advair HFA) 230-21 MCG/ACT inhaler Inhale 2 puffs every 12 (twelve) hours. 12 g 11 4 Active cholecalcifero l (Vitamin D-3) 50 MCG (2000 UT) tablet Take 2,000 Units by mouth in the morning. 120 tablet 3 4 Active Blood Pressure kitIndications :Elevated blood pressure reading 1 Units in the morning. 1 kit 4 Active lamoTRIgine (LaMICtal) 100 MG tabletIndicati ons:Bipolar Mood Disorder Take 100 mg by mouth Once per day. Active citalopram (CeleXA) 40 MG tabletIndicati ons:Major Depressive Disorder Take 40 mg by mouth Once per day. Active topiramate (Topamax) 100 MG tablet Take 1 tablet (100 mg) by mouth 2 times daily. 180 tablet 11 4 Active rosuvastatin (Crestor) 40 MG tablet TAKE 1 TABLET BY MOUTH EVERY MORNING 90 tablet 1 4 Active albuterol (Ventolin HFA) 108 (90 Base) MCG/ACT inhaler INHALE 2 PUFFS EVERY FOUR HOURS NEEDED 18 g 1 4 Active SUMAtriptan (Imitrex) 50 MG tablet TAKE 1 TABLET (50 MG) BY MOUTH 1 (ONE) TIME IF NEEDED FOR MIGRAINE. 9 tablet 2 4 Active pregabalin (Lyrica) 150 MG capsule TAKE 1 CAPSULE BY MOUTH TWICE A DAY 60 capsule 5 4 Active cyclobenzaprin e (Flexeril) 10 MG tablet TAKE 1 TABLET BY MOUTH EVERY MORNING, NOON AND EVERY NIGHT AT BEDTIME FOR MUSCLE SPASM 90 tablet 3 5 Active cyclobenzaprin e (Flexeril) 10 MG tablet TAKE 1 TABLET BY MOUTH EVERY MORNING, NOON AND AT BEDTIME FOR MUSCLE SPASMS 90 tablet 3 4 12/16/19 25 Discontinued Active Problems Problem Noted Date Diagnosed Date Left ovarian cyst 10/04/2024 Assessment & Plan (10/04/2024 1:16 PM EST): Ordering US for further evaluation. Discussed medication refills. Relevant Medications Ibuprofen 800 mg Tablet Fibromyalgia 04/01/2024 Assessment & Plan (07/09/2024 10:53 AM EDT): Pt reports that Pregabalin (Lyrica) 150 MG capsule is helping tolerate the pain. IUD threads lost 04/01/2024 Assessment & Plan (04/01/2024 5:49 PM EDT): - US Pelvis was ordered - US Pelvis Transvaginal ordered -F/U after the ultrasound and possible referral to multicraft operator depending on results (Note: IUD removal is due in the summer). Positive REFUGIO (antinuclear antibody) 03/11/2024 Anxiety 03/04/2024 Assessment & Plan (03/04/2024 11:38 PM EDT): Continue same treatment plan. Depression 03/04/2024 Assessment & Plan (03/04/2024 11:39 PM EDT): Continuation of current psychiatric medications under the care of Dr. Barbosa. No changes discussed. Migraine with aura and witho ut status migrainosus, not intractable 03/04/2024 Assessment & Plan (07/09/2024 11:07 AM EDT): -The use of medications has made the migraines a bit more tolerable, but not completely tolerable -Pts frequency of migraines 2x a week on a good day and 4-5x a week on a bad day Relevant orders: Increased dosage of Topiramate (Topamax) from 50 MG to 100 MG. Assessment & Plan (04/01/2024 5:44 PM EDT): -The pt was prescribed Naproxen 500 mg. -Pt was prescribed Topiramate (Topamax) 50 mg and educated that this medication was to treat the frequency of the headaches. Pt was informed of potential side effects to look out for and was advised that if any adverse affects arise to stop the medication and contact the doctor immediately. Polyarthralgia 03/04/2024 Assessment & Plan (07/13/2024 9:46 AM EDT): Rheumatology confirmed suspected Dx of Fibromyalgia. Assessment & Plan (03/04/2024 11:38 PM EDT): Plan to complete evaluation with additional laboratory tests for rheumatoid arthritis and other conditions. Considering the patient's history and symptoms, fibromyalgia is a potential diagnosis. Treatment options discussed include Flexeril (previously helped with muscle pain), gabapentin, and amitriptyline. The patient will be started on Flexeril, with a follow-up to assess effectiveness and review lab results. Labs: CCP, C-reactive Protein, Rheumatoid Factor, REFUGIO Elevated blood pressure reading 03/04/2024 Assessment & Plan (10/04/2024 1:15 PM EST): BP is elevated, recheck at 138/89. Advised to monitor at home with BP home kit and call in if BP continues to be elevated. Follow up in 6 months. Assessment & Plan (03/04/2024 11:44 PM EDT): The patient's blood pressure was elevated during the visit. A home blood pressure monitoring machine will be provided to assess for white coat hypertension, with a follow-up appointment scheduled to review readings. She has a F/U appointment with nurse in 2 weeks to reassess BP an determine if medication are needed. Vitamin D deficiency 10/23/2017 Moderate persistent asthma 10/23/2017 Assessment & Plan (07/09/2024 11:23 AM EDT): Relevant orders: Albuterol (Ventolin HFA) 108 (90 Base) MCG/ACT inhaler Mood disorder 05/18/2014 Assessment & Plan (07/13/2024 9:45 AM EDT): Mood disorder questionnaire positive, needs eval for mood disorder. Upon offering to the pt if she wanted to speak to someone , she stated that she has a therapist. Encounters Date Type Department Care Team Description 12/14/2024 Refill [facility] [address] [place] [address] Courtney Davila MD 12/08/2024 Telephone [facility] [address] [place] [address] Courtney Davila MD 10/25/2024 Refill [facility] [address] [place] [address] Courtney Davila MD 10/11/2024 Orders Only GENERIC EXTERNAL DATA DEPARTMENT Provider, Generic External Data 10/04/2024 1:00 PM EST Office Visit [facility] [address] [place] [address] Courtney Davila MD Left ovarian cyst (Primary Dx); Elevated blood pressure reading; Encounter for immunization 10/04/2024 Travel 10/04/2024 Telephone [facility] [address] [place] [address] Courtney Davila MD CHART PREP from Last 3 Months Immunizations Name Administration Dates Next Due DTaP 05/03/2012, 1,01/04/1988,1986,1986,1986 Hep A, Adult 07/31/2017,01/14/2017 Hep B, Adolescent or Pediatric 12/17/2001,2000,07/24/1999 Hep B, adult 01/14/2017 Hib (HbOC) 02/01/1988 IPV 03/21/1988, 7,1986,1985 Influenza injectable quadriv alent preservative free 01/07/2019,12/23/2016 Influenza, IIV3, injectable 08/25/2014 Influenza, seasonal, injecta ble, preservative free 10/04/2024 MMR 03/10/1991,10/11/1987 TD (adult), 2 Lf tetanus tox oid, preservative free, adsorbed 07/24/1999 Tdap 12/23/2016 Varicella 07/24/1999 Family History Medical History Relation Name Comments Bipolar disorder Father Diabetes Father Hypertension Father Diabetes Mother Fibromyalgia Mother Hypertension Mother Thyroid disease Mother Bipolar disorder Sister Depression Sister Relation Name Status Comments Father Mother Sister Social History Tobacco Use Types Packs/Day Years Used Date Smoking Tobacco: Former Cigarettes 1 6 0 11/17/2011 - 11/17/2017 Passive Smoke Exposure: Current Smokeless Tobacco: Never Tobacco Cessation:Counseling Given: Not Answered Alcohol Use Standard Drinks/Week Comments Never 0 [...] Orientation Straight 07/09/2024 11 :57 AM EDT Last Filed Vital Signs Vital Sign Reading Time Taken Comments Blood Pressure 138/84 10/04/2024 1:06 PM EST Pulse 84 10/04/2024 12:57 PM EST Temperature 37.1 ??C (98.8 ??F) 10/04/2024 12:[address] Respiratory Rate 20 10/04/2024 12:57 PM EST Oxygen Saturation 98% 10/04/2024 12:57 PM EST Inhaled Oxygen Concentration - - Weight 72.8 kg (160 lb 9.6 oz) 10/04/2024 12:57 PM EST Height 162 cm (5' 3.78 ) 10/04/2024 12:57 PM EST Body Mass Index 27.76 10/04/2024 12:57 PM EST Plan of Treatment Health Maintenance Due Date Last Done Comments Family Planning (PISQ) 2001 COVID-19 Vaccine ( season) 2024 11/30/2021, 06/12/2021, 05/15/2021 Depression Monitoring (PHQ-9) 01/09/2025 07/09/2024, 07/09/2024 SDOH Screening 02/24/2025 02/25/2024 Pneumococcal Vaccine: Pediatrics (0 to 5 Years) and At-Risk Patients (6 to 49) Years) (1 of 2 - PCV) 03/04/2025 Postponed from 2005 (Patient Refused) Depression Screening 07/09/2025 07/09/2024, 07/09/20 Alcohol/Substance Use Screening 10/04/2025 10/04/2024 Tobacco Screening 10/04/2025 10/04/2024 DTaP/Tdap/Td Vaccines (8 - Td or Tdap) 12/23/2026 12/23/2016, 05/03/2012, 07/24/1999, Additional history exists Cervical Cancer Screening 10/11/2029 HPV/Cotest 10/11/2029 07/10/2022, 06/18, 07/05/2021, Additional history exists Pap Smear 10/11/2029 10/11/2024 Zoster Vaccines (1 of 2) 2036 RSV Patients and Patients Aged 60 years or older (1 - 1-dose 75+ series) 2061 HIB Vaccines Completed 02/01/1988 IPV Vaccines Completed 03/21/1988, 01/15, 1986, Additional history exists Hepatitis B Vaccines Completed 01/14/2017, 12/17/2001, 08/06/2001, Additional history exists Hepatitis A Vaccines Aged Out 07/31/2017, 01/14/20 17 No longer eligible based on patient's age to complete this topic HIV Screening Completed 03/04/2024 Hepatitis C Screening Completed 03/04/2024 Influenza Vaccine Completed 10/04/2024, , 12/23/2016, Additional history exists HPV Vaccines Aged Out No longer eligi ble based on patient's age to complete this topic Meningococcal Vaccine Aged Out No jono jessi eligible based on patient's age to complete this topic RSV under 20 months Aged Out No longe r eligible based on patient's age to complete this topic Rotavirus Vaccines Aged Out No longer eligible based on patient's age to complete this topic Procedures Procedure Name Priority Date/Time Associated Diagnosis Comments US PELVIS TRANSVAGINAL Routine 11/03/2024 10:54 AM EST Left ovarian cyst PAP SMEAR Routine 10/11/2024 12:00 AM EST CHLAMYDIA/N. GONORRHOEAE RNA, TMA, UROGENITAL Routine 10/11/2024 12:00 AM EST BACTERIAL VAGINOSIS PANEL Routine 10/11/2024 12:00 AM EST HEPATITIS C AB W/REFL TO HCV RNA, QN, PCR Routine 03/04/2024 1:51 PM EDT Encounter for health-related screening HIV 1/2 ANTIGEN/ANTIBODY, FOURTH GENERATION W/RFL Routine 03/04/2024 1:51 PM EDT Encounter for health-related screening ZZZ HISTORICAL HPV E6/E7 RFLX ROBERT 16 18/45 Routine 07/10/2022 11:46 AM EDT from Last 3 Months or Most Recently Relevant to Health Maintenance Results * US Pelvis Transvaginal (11/03/2024 10:54 AM EST) Anatomical Region Laterality Modality Pelvis Ultrasound 11/03/2024 10:5 4 AM EST Narrative 12/08/2024 5:59 AM EST ? [facility] ?[address] ?[place] [address] ? Ultrasound Report ? Signed ? Patient: Anavitate,Iris ?MR#: [id number] ?? 19 ? : 1985 ?Acct:[id number] ? Age/Sex: 39 / F ?ADM Date: 11/03/24 ? Loc: HO.US ? Attending Dr: Courtney Davila MD ? Ordering Physician: Courtney Davila MD ?? Date of Service: 11/03/24 ?? Procedure(s): US pelvic and transvaginal ?? Accession Number(s): [id number] ? cc: Courtney Davila MD ? EXAMINATION: ? US PELVIS ? CLINICAL INFORMATION: ? LEFT ovarian cyst, IUD. ? COMPARISON: ?? 08/31/2024. ? TECHNIQUE: ?? Ultrasound of the pelvis is performed using both transabdominal and ?? transvaginal transducers along with Doppler. Transvaginal imaging is ?? performed due to inadequate visualization transabdominally. ? FINDINGS: ?? The anteverted uterus measures 9.0 x 4.3 x 7.0 cm. ? IUD in place within the endometrial cavity. Shadowing from the IUD ?? limits visualization of the endometrium. Imaged portion of the ?? endometrium measures 2 mm. ? RIGHT ovary measures 3.3 x 3.1 x 2.2 cm, volume 12 mL. ? LEFT ovary measures 2.9 x 1.6 x 1.2 cm, volume 3 mL. Visualization of ?? the bilateral ovaries is limited due to bowel gas. ? US/US pelvic and transvaginal ?? IMPRESSION: ? IUD in place within the endometrial cavity. ? Electronically signed by: ??Kimberly Boogie MD ??12/08/2024 05:56 AM EST ?? RP ? Dictated By: ?Kimberly Boogie MD ? Signed By: ?<Electronically signed by Kimberly Boogie MD in OV> ? 12/08/24 0556 ? DD/ 1054 ? TD/TT: 11/03/24 1105 ? Sleep Lab Technologist: ? Procedure Note Donotpedrointerpreter, Image - 12/08/2024 [place] [address] Ultrasound Report Signed Patient: Rosalba Hawk#: [id number] 18 : 1985Acct:[id number] Age/Sex: 39 / FADM Date: 11/03/24 Loc: .US Attending Dr: Courtney Davila MD Ordering Physician: Courtney Davila MD Date of Service: 11/03/24 Procedure(s): US pelvic and transvaginal Accession Number(s): [id number] cc: Courtney Davila MD EXAMINATION: US PELVIS CLINICAL INFORMATION: LEFT ovarian cyst, IUD. COMPARISON: 08/31/2024. TECHNIQUE: Ultrasound of the pelvis is performed using both transabdominal and transvaginal transducers along with Doppler. Transvaginal imaging is performed due to inadequate visualization transabdominally. FINDINGS: The anteverted uterus measures 9.0 x 4.3 x 7.[address] within the endometrial cavity. Shadowing from the IUD limits visualization of the endometrium. Imaged portion of the endometrium measures 2 mm. RIGHT ovary measures 3.3 x 3.1 x 2.2 cm, volume 12 mL. LEFT ovary measures 2.9 x 1.6 x 1.2 cm, volume 3 mL. Visualization of the bilateral ovaries is limited due to bowel gas. US/US pelvic and transvaginal IMPRESSION: IUD in place within the endometrial cavity. Electronically signed by: Kimberly Boogie MD 12/08/2024 05:56 AM EST Dictated By: Kimberly Boogie MD Signed By: <Electronically signed by Kimberly Boogie MD in OV> 12/08/24 0556 DD/ 1054 TD/TT: 11/03/24 1105 Sleep Lab Technologist: us Courtney Davila MD IMG US PROCEDURES Final Resul t * Bacterial Vaginosis (10/11/2024 12:00 AM EST) TRICHOMONAS VAGINALIS DETECTION BY PCR NOT DETECTED Not Detect [facility] BACTERIAL VAGINOSIS DETECTION BY PCR NEGATIVE Negative [facility] Comment:The BV organism targ ets of the Xpert Xpress MVP test can becommensal in women; Xpert Xpress MVP positive results forbacterial vaginosis should be considered in conjunction withother clinical and patient information to determine thedisease status. Organisms that are not detected by the XpertXpress MVP test have also been reported to be associatedwith BV and aerobic vaginitis.The Xpert Xpress MVP test performance has not been evaluatedin patients under the age of 14. SABI GROUP DETECTION BY PCR NOT DETECTED Not Detect [facility] Sabi glab krusei PCR NOT DETECTED Not Detect [facility] 10/11/2024 10/11/2024 us Generic External Data Provider LAB MICROBIOLOGY - GENERAL ORDERABLES Final Result [facility] [address] [place] [phone] * Chlamydia/N. Gonorrhoeae RNA, TMA, Urogenitial (10/11/2024 12:00 AM EST) CT PCR NOT DETECTED Not Detect. [facility] Comment:A not detected test result does not exclude the possibilityof infection because test results can be affected byimproper specimen collection, concurrent antibiotic therapy,or the number of organisms in the specimen which may bebelow the sensitivity of the test. As with many diagnostictests, results from the Xpert CT/NG assay should beinterpreted in conjunction with other laboratory andclinical data available to the clinician.Xpert CT/NG performance has not been evaluated in patientsless than 14 years of age. The assay should not be used forthe evaluationof suspected sexual abuse or for other medico-legalindications. Additional testing is recommended in anycircumstance when false positive or false negative resultscould lead to adverse medical, social or psychologicalconsequences. NG PCR NOT DETECTED Not Detect. [facility] Comment:A not detected test result does not exclude the possibilityof infection because test results can be affected byimproper specimen collection, concurrent antibiotic therapy,or the number of organisms in the specimen which may bebelow the sensitivity of the test. As with many diagnostictests, results from the Xpert CT/NG assay should beinterpreted in conjunction with other laboratory andclinical data available to the clinician.Xpert CT/NG performance has not been evaluated in patientsless than 14 years of age. The assay should not be used forthe evaluationof suspected sexual abuse or for other medico-legalindications. Additional testing is recommended in anycircumstance when false positive or false negative resultscould lead to adverse medical, social or psychologicalconsequences. 10/11/2024 10/11/2024 Narrative [facility] - 10/12/2024 12:18 PM EST Vaginal us Generic External Data Provider LAB MICROBIOLOGY - GENERAL ORDERABLES Final Result Performing Organization Address City/State/[facility] Co de Phone Number [facility] [address] [place] [phone] * Pap Smear (10/11/2024 12:00 AM EST) 10/11/2024 10/12/2024 9:5 0 AM EST Narrative [facility] - 10/19/2024 9:56 AM EST ----- ------- Name: Anavitate,Iris ? Age/Sex: 39/F ? : 1985 Unit#: [id number] ?? Attend Dr: Ericka Martinez CNM ?Re10/11/24 ?Status: DEP REF ? Location: HO.LAB ?Disch: ? ----- ------- SPEC : [id number] ?RECD: 10/12/2436 ? STATUS: ??SOUT ? REQ NUM: [id number] ? MAYI: 10/11/24-0000 ? SUBM DR: Ericka Martinez CNM ? ENTERED: ??10/12/24-1006 ?SP TYPE: Pap Smr ?OTHR DR: Courtney Davila MD ? ORDERED: ??Pap Smear ? Interpretation ?? Satisfactory for evaluation. ?? No endocervical cells seen. ?? Negative for intraepithelial lesion or malignancy. ? HPV High Risk: ??Negative ? HPV Genotyping 16: ??Negative ?? HPV Genotyping 18: ??Negative ?Clinical Information LMP: No/IUD Previous PAP test: 2021, 2020, neg, abnormal ? Material Received ?? ThinPrep-Cervical Copies To: ?? Ericka Martinez CNM ?? [facility] ?? [address] [facility] ?? [place] [address] ?? [phone] ?? Courtney Davila MD ?? [address] [facility] ?? [place] [address] ?? [phone] ----- ------- Signed (signature on file) RUPINDER Cabello (ASCP) 10/19/24 0956 ? ----- ------- ? END OF REPORT ? us Generic External Data Provider LAB CYTOLOGY ATIF BENNETT Final Result [facility] [address] [place] [phone] * Hepatitis C Antibody with Reflex to HCV, RNA, Quantitative, Real-Time PCR (03/04/2024 1:51 PM EDT) Pathologist [facility] [place] Hepatitis C Antibody Nonreactive Nonreactive [facility] Comment:Antibodies to HCV no t detected; does not exclude early acuteHCV infection. Blood Venous blood specimen / Unknown 03/04/2024 1:51 PM EDT 03/04/2024 2:18 PM EDT us Courtney Davila MD LAB BLOOD ORDERABLES Final Re sult Performing Organization Address [facility] Co de Phone Number [facility] [address] [place] [phone] * HIV-1/2 Antigen and Antibodies, Fourth Generation, with Reflexes (03/04/2024 1:51 PM EDT) Pathologist [facility] [place] HIV AB/AG Nonreactive Nonreactive [facility] Comment:HIV-1 p24 Ag and/or HIV-1/HIV-2 Ab not detected.A test result that is nonreactive does not exclude thepossibility of exposure to or infection with HIV-1 and/orHIV-2. Nonreactive results in this assay for individualswith prior exposure to HIV-1 and/or HIV-2 may be due toantigen and antibody levels that are below the limit ofdetection of this assay.The [employer] HIV Ag/Ab Combo assay result andsupplemental assay results should be interpreted inconjunction with the patient's clinical presentation,history and other laboratory results. If the results areinconsistent with clinical evidence, additional testing issuggested to confirm the result. Blood Venous blood specimen / Unknown 03/04/2024 1:51 PM EDT 03/04/2024 2:18 PM EDT us Courtney Davila MD LAB BLOOD ORDERABLES Final Re sult Performing Organization Address City/[facility]/ZIP Co de Phone Number [facility] [address] [place] [address] [phone] * HPV E6/E7 RFLX ROBERT 16 18/45 (07/10/2022 11:46 AM EDT) HPV 16 RNA [facility] HPV 18/45 RNA [facility] HPV E6 E7 ADD [facility] HPV mRNA E6/E7 rflx Not Detected Not Detected [facility] Comment: Methodology: Escort Car Driver-Mediated Amplification This assay detects E6/E7 viral messenger RNA (mRNA) from 14 high-risk HPV types (16,18,31,33,35,39,45,51,52,56,58,59,66,68). Cervical sources are required for HPV testing. If a vaginal source from a patient who has had a total hysterectomy with removal of cervix was submitted, please contact the testing laboratory for alternative testing options. For additional information, please refer to http://education.[employer]/faq/ZWD249f7 (This link if provided for information/ educational purposes only.) THIS TEST WAS PERFORMED AT: [facility] [address] [place], [place] ??[phone] MORA STARR MD 07/10/2022 11:4 6 AM EDT Ericka Chappell HISTORICAL/NON ORDERABLE LABS Fi nal Result [facility] [address] from Last 3 Months or Most Recently Relevant to Health Maintenance Insurance C3 Care Teams Footwear Sales Coordinator Relationship Specialty Start Date End Date Courtney Davila MD [address] [place] [phone] PCP - General Family Medicine 03/04/24 Yony Barbosa MD Psychiatrist Psychiatry 11/17/18
--- OUTSIDE RECORDS SUMMARY | 2024-12-29 13:46 | XMS_ITS | Encounter Summary ---
Author Organization [employer] Address [address] [facility] 7 [place] [address] Care Team Providers Care Project/Production Manager Imaging Name Role Phone Joseph, [facility] Primary Care Provider [phone] Courtney Davila MD Primary Care Provider [phone] Reason for Visit * Reason Onset Date Comments Nurse Triage 06/19/2023 Encounter Details Date Type Department Care Team (Late st Contact Info) Description 06/19/2023 Telephone [facility] MEDICINE [address] [place], [place] [phone] [facility] [address] [place], [place] [phone] Nurse Triage Social History Tobacco Use Types Packs/Day Years Used Date Smoking Tobacco: Never Smokeless Tobacco: Never Comments Unknown Sex and Gender Information Value Date Recorded Sex Assigned at Female 09/16/2022 10:16 AM EDT Legal Sex Female 10:16 AM EDT Gender Identity Female 09/16/2022 10:16 AM EDT Sexual Orientation Straight 07/09/2024 11 :57 AM EDT documented as of this encounter Miscellaneous Notes * Telephone Encounter - Indiana Velarde RN - 06/19/2023 3:55 PM EDT Triage call Pt reports for 3 days has had a sore throat. Pt reports white bump is on the inside of throat, right side of the neck is swollen and it is beginning to affect the right ear. Pt is having difficult swallowing. Pt has been using cough drops, salt water gargle. Advised Pt to come to [facility] first thing tomorrow morning. [facility] closes at 4pm today and Pt doesn't have enough time to get here.Pt reports will be there first thing in the morning. Advised to drink adequate liquids and Pt agreed. Protocol Used: Sore Throat (Adult) Protocol-Based Disposition: See in Office or Video Visit Today Video visit not offered Positive Triage Questions: * Severe sore throat pain * Pus on tonsils (back of throat) and swollen neck lymph nodes ( glands ) * Earache also present * All higher-acuity triage questions were negative Care Advice Discussed: * For Relief of Sore Throat Pain * Pain and Fever Medicines * Pain and Fever Medicines - Extra Notes and Warnings * Soft Diet * Drink Plenty of Liquids * Contagiousness * Expected Course * Reasons To Call Back - Sore throat is the main symptom and it lasts longer than 48 hours - Sore throat is mild but lasts longer than 4 days - Fever lasts longer than 3 days - You become worse * Telephone Encounter - Melba Goldberg - 06/19/2023 3:44 PM EDT Symptoms: Sore Throat, Earache, Headache Outcome: Schedule an urgent appointment (within 1 hour) or talk to a nurse or provider soon Reason: Any trouble breathing through the mouth, believes to be an infection due to swollen on right side of throat The caller accepted this outcome Please contact pt at [phone] documented in this encounter Plan of Treatment Not on file documented as of this encounter Visit Diagnoses Not on filedocumented in this encounter Care Teams Project/Production Manager Imaging Relationship Specialty Start Date End Date Brittany Ruiz FNP [address] [place] [address] PCP - General Family Medicine 04/29/22 03/03/24 Courtney Davila MD [address] [place] [address] PCP - General Family Medicine 03/04/24 Yony Barbosa MD Psychiatrist Psychiatry 11/17/18 documented as of this encounter
--- OUTSIDE RECORDS SUMMARY | 2024-12-29 13:46 | XMS_ITS | Encounter Summary ---
Author Organization [employer] Address 75 [facility] 7 [place] [address] Care Team Providers Care Tempering Machine Operator Name Role Phone Courtney Davila MD Primary Care Provider [phone] Reason for Visit * Reason Comments Med Refill Encounter Details Date Type Department Care Team ([facility] Contact Info) Description 12/14/2024 Refill [facility] MED & PEDS [address] [place] [address] Courtney Davila MD 505 [place] [address] Social History Tobacco Use Types Packs/Day Years [...] documented as of this encounter Care Teams Tempering Machine Operator Relationship Specialty Start Date End Date Courtney Davila MD 230 [place] [address] PCP - General Family Medicine 03/04/24 Yony Barbosa MD Psychiatrist Psychiatry 11/17/18 documented as of this encounter
--- OUTSIDE RECORDS SUMMARY | 2024-12-29 13:46 | XMS_ITS | Encounter Summary ---
Author Organization [employer] Address 75 [facility] 7 [place] [address] Care Team Providers Care Imaging Nurse Name Role Phone Courtney Davila MD Primary Care Provider [phone] Reason for Visit * Reason Comments Med Refill Encounter Details Date Type Department Care Team ([facility] st Contact Info) Description 07/21/2024 Refill [facility] MED & PEDS [address] [place] [address] Kristy Stevens MD 505 [place] [address] Social History Tobacco Use Types Packs/Day Years [...] documented as of this encounter Care Teams Imaging Nurse Relationship Specialty Start Date End Date Courtney Davila MD 230 [place] [address] PCP - General Family Medicine 03/04/24 Yony Barbosa MD Psychiatrist Psychiatry 11/17/18 documented as of this encounter
--- OUTSIDE RECORDS SUMMARY | 2024-12-29 13:46 | XMS_ITS | Encounter Summary ---
Author Organization [employer] Address 75 [facility] [address] [place] [address] Care Team Providers Care Creative Services Coordinator Name Role Phone Courtney Davila MD Primary Care Provider [phone] Encounter Details Date Type Department Care Team ([facility] st Contact Info) Description 12/08/2024 Telephone [facility] MED & PEDS [address] [place], [place] [phone] Courtney Davila MD 505 [place] [address] Social History Tobacco Use Types Packs/Day Years [...] encounter Miscellaneous Notes * Telephone Encounter - Johana Lopez RN - 12/08/2024 2:47 PM EST Telephone call to the pt regarding the previous message from Dr. Davila . Pt was advised of this message . Pt verbalized understanding . * Telephone Encounter - Courtney Davila MD - 12/08/2024 12:21 PM EST [facility] Team! Can you please call Iris T Anavitate and inform about results? US showed IUD is in placed, her ovaries where not visualized due to bowel gas. Thanks! Courtney documented in this encounter Plan of Treatment Not on file documented as of this encounter Visit Diagnoses Not on filedocumented in this encounter Additional Health Concerns Assessment Noted Time PHQ-9 Depression Total Score: 12 024 9:22 AM EDT documented as of this encounter Care Teams Creative Services Coordinator Relationship Specialty Start Date End Date Courtney Davila MD [address] [place] [address] PCP - General Family Medicine 03/04/24 Yony Barbosa MD Psychiatrist Psychiatry 11/17/18 documented as of this encounter
== END 2024-12-29 13:03 | disposition home or self-care (01) ==
PROVIDERS: PCP Family Medicine; Visit Provider Obstetrics & Gynecology
DX: T83.32XA Displacement of intrauterine contraceptive device, initial encounter (principal)
CPT/HCPCS: 99203

== ENCOUNTER → 2024-12-29 12:07 | Outpatient (BNVA) | payer MEDICAID, SELFPAY | PROVIDERS: PCP Family Medicine; Visit Provider Obstetrics & Gynecology | DX: T83.32XA Displacement of intrauterine contraceptive device, initial encounter (principal) | CPT/HCPCS: 99202 ==

== ENCOUNTER 2025-01-11 14:33 | Outpatient (AMB) | payer MEDICAID, SELFPAY ==
--- NOTE | 2025-01-11 14:34 | A.OFFVIS_ITS ---
Intake Visit Reasons: IUD questions Allergies No Known Allergies Allergy (Verified 12/29/24 12:15) HPI Comments Details: The patient is scheduled tele health visit , the patient is requesting hysteroscopic IUD removal Pelvic ultrasound done on 11/03/2024 showed the following: The anteverted uterus measures 9.0 x 4.3 x 7.[address] within the endometrial cavity. Shadowing from the IUD limits visualization of the endometrium. Imaged portion of the endometrium measures 2 mm. RIGHT ovary measures 3.3 x 3.1 x 2.2 cm, volume 12 mL. LEFT ovary measures 2.9 x 1.6 x 1.2 cm, volume 3 mL. Visualization of the bilateral ovaries is limited due to bowel gas. Pelvic exam done last visit on 12/29/2024 IUD string was not seen, the patient was recommended to have repeat hysteroscopic IUD removal, wants to think about it and get back to us [facility] Medical History Bipolar 1 disorder Depression Anxiety Umbilical hernia Lipoma of abdominal wall delivery delivered Asthma Surgical History History of loop electrical excision procedure (LEEP) Hx of section Family History Paternal Grandmother Breast CA Social History Alcohol intake: unknown Patient Tobacco Use Status: Never used Tobacco Substance Use Type: Marijuana Current occupational status: disabled Female Reproductive History Menstrual Age of Menarche: 14 Review of Systems Const All systems reviewed & are unremarkable except as noted in HPI and below Reports as per HPI and Reports no additional complaints GI Reports no additional complaints Reports no additional complaints Telehealth Telehealth Telehealth Platform: [facility] Location of provider rendering services: practice address Location of patient: address on file Patient Identification confirmed using: Name, : Yes Telehealth method: video Patient verbally consented to billing insurance company: Yes Patient informed of any privacy concerns related to visit: Yes Minutes spent on Phone/Video with Pt.: 20 Assessment & Plan Assessment & Plan (1) IUD strings lost: Code(s): T83.32XA - Displacement of intrauterine contraceptive device, initial encounter Category: Medical Plan: Discussed with the patient the hysteroscopic Mirena IUD removal and alternative options including but not limited Mirena IUD, copper IUD, vasectomy and sterilization. All pros and cons risks and benefits of each were discussed with the patient, the patient would like to have hysteroscopic IUD removal and not proceed with any other method of control for the time being. Instructions given the patient to schedule a preop visit for hysteroscopic IUD removal as soon as possible. All questions answered, the patient verbalized understanding. I spent a total of 20 minutes reviewing the chart, talking to the patient via video and documenting in the medical record. Coding Level of Care Code Tele Est Pt Level 3 (22762) Diagnoses IUD strings lost T83.32XA
--- OUTSIDE RECORDS SUMMARY | 2025-01-11 18:14 | XMS_ITS | Encounter Summary ---
Author Organization [employer] Address 75 [facility] 7 [place] [address] Care Team Providers Care Electrician Supervisor Name Role Phone Courtney Davila MD Primary Care Provider [phone] Reason for Visit * Reason Comments Med Refill Encounter Details Date Type Department Care Team ([facility] st Contact Info) Description 07/21/2024 Refill [facility] MED & PEDS 505 [place] [address] Kristy Stevens MD 505 [place] [address] Social History Tobacco Use Types Packs/Day Years [...] documented as of this encounter Care Teams Electrician Supervisor Relationship Specialty Start Date End Date Courtney Davila MD 230 [place] [address] PCP - General Family Medicine 03/04/24 Yony Barbosa MD Psychiatrist Psychiatry 11/17/18 documented as of this encounter
--- OUTSIDE RECORDS SUMMARY | 2025-01-11 18:14 | XMS_ITS | Encounter Summary ---
Author Organization [employer] Address 75 [facility] 7 [place] [address] Care Team Providers Care Protection Officer Name Role Phone Courtney Davila MD Primary Care Provider [phone] Reason for Visit * Reason Comments Med Refill Encounter Details Date Type Department Care Team ([facility] Contact Info) Description 12/14/2024 Refill [facility] MED & PEDS 505 [place] [address] Courtney Davila MD 505 [place] [address] Social History Tobacco Use Types Packs/Day Years [...] documented as of this encounter Care Teams Protection Officer Relationship Specialty Start Date End Date Courtney Davila MD 230 [place] [address] PCP - General Family Medicine 03/04/24 Yony Barbosa MD Psychiatrist Psychiatry 11/17/18 documented as of this encounter
--- OUTSIDE RECORDS SUMMARY | 2025-01-11 18:14 | XMS_ITS | Encounter Summary ---
Author Organization [employer] Address 75 [facility] 7 [place] [address] Care Team Providers Care Senior Engineering Associate Name Role Phone Joseph, [facility] Primary Care Provider [phone] Courtney Davila MD Primary Care Provider [phone] Reason for Visit * Reason Onset Date Comments Nurse Triage 06/19/2023 Encounter Details Date Type Department Care Team (Late st Contact Info) Description 06/19/2023 Telephone [facility] MEDICINE [address] [place], [place] [phone] [facility] [address] [place], [place] [phone] Nurse Triage Social History Tobacco Use Types [...] water gargle. Advised Pt to come to [facility] first thing tomorrow morning. [facility] closes at 4pm today and Pt [...] accepted this outcome Please contact pt at [phone] documented in this encounter Plan of Treatment Not on file documented as of this encounter Visit Diagnoses Not on filedocumented in this encounter Care Teams Senior Engineering Associate Relationship Specialty Start Date End Date Brittany Ruiz FNP [address] [place] [address] PCP - General Family Medicine 04/29/22 03/03/24 Courtney Davila MD [address] [place] [address] PCP - General Family Medicine 03/04/24 Yony Barbosa MD Psychiatrist Psychiatry 11/17/18 documented as of this encounter
--- OUTSIDE RECORDS SUMMARY | 2025-01-11 18:14 | XMS_ITS | Clinical Summary ---
Author Organization [employer] Address 75 [facility] 7 [place] [address] Care Team Providers Care Yard General Car Supervisor Name Role Phone Courtney Davila MD Primary Care Provider [phone] Allergies No known active allergies Medications fluticasone-sa [...] after the ultrasound and possible referral to event decorator depending on results (Note: IUD removal is due in the summer). Positive REFUGIO (antinuclear antibody) 03/11/2024 Anxiety 03/04/2024 Assessment & Plan (03/04/2024 11:38 PM EDT): Continue same treatment plan. Depression 03/04/2024 Assessment & Plan (03/04/2024 11:39 PM EDT): Continuation of current psychiatric medications under the care of Dr. Barobsa. No changes discussed. Migraine with aura and [...] Encounters Date Type Department Care Team Description 01/11/2025 Refill [facility] MED & PEDS [address] [place] [address] Courtney Davila MD 12/14/2024 Refill [facility] MED & PEDS [address] [place] [address] Courtney Davila MD 12/08/2024 Telephone [facility] MED & PEDS [address] [place] [address] Courtney Davila MD 10/25/2024 Refill [facility] MED & PEDS [address] [place] [address] Courtney Davila MD 10/11/2024 Orders Only GENERIC EXTERNAL DATA DEPARTMENT Provider, Generic External Data from Last 3 Months Immunizations Name Administration [...] Cervical Cancer Screening 10/11/2029 HPV/Cotest 10/11/2029 07/10/2022, 0802/2022, 07/05/2021, Additional history exists Pap Smear 10/11/2029 [...] ZZZ HISTORICAL HPV E6/E7 RFLX ROBERT 16 Routine 07/10/2022 11:46 AM EDT from Last 3 Months or Most Recently Relevant to Health Maintenance Results * US Pelvis Transvaginal (11/03/2024 10:54 AM EST) Anatomical Region Laterality Modality Pelvis Ultrasound 11/03/2024 10:5 4 AM EST Narrative 12/08/2024 5:59 AM EST ? [facility] ?[address] ?[place], [place] [address] ? Ultrasound Report ? Signed ? Patient: Anavitate,Iris ?MR#: [id number] ?? 19 ? : 1985 ?Acct:[id number] ? Age/Sex: 39 / F ?ADM Date: 11/03/24 ? Loc: HO.US ? Attending Dr: Courtney Davila MD ? Ordering Physician: Courtney Davila MD ?? Date of Service: 11/03/24 ?? Procedure(s): US pelvic and transvaginal ?? Accession Number(s): [id number] ? cc: Courtney Davila MD ? EXAMINATION: [...] DD/ 1054 ? TD/TT: 11/03/24 1105 ? Transfer Knitter: ? Procedure Note Donotuseinterpreter, Image - 12/08/[address] [address] Ultrasound Report Signed Patient: Rosalba Hawk#: [id number] 18 : 1985Acct:[id number] Age/Sex: 39 / FADM Date: 11/03/24 Loc: HO.US Attending Dr: Courtney Davila MD Ordering Physician: Courtney Davila MD Date of Service: 11/03/24 Procedure(s): US pelvic and transvaginal Accession Number(s): [id number] cc: Courtney Davila MD EXAMINATION: US PELVIS [...] 12/08/24 0556 DD/ 1054 TD/TT: 11/03/24 1105 Transfer Knitter: us Courtney Davila MD IMG US PROCEDURES Final Resul t * Bacterial Vaginosis (10/11/2024 12:00 AM EST) TRICHOMONAS VAGINALIS DETECTION BY PCR NOT DETECTED Not Detect [facility] BACTERIAL VAGINOSIS DETECTION BY PCR NEGATIVE Negative [facility] Comment:The BV organism targ ets of [...] DETECTION BY PCR NOT DETECTED Not Detect [facility] Sabi glab krusei PCR NOT DETECTED Not Detect [facility] 10/11/2024 10/11/2024 Generic External Data Provider LAB MICROBIOLOGY - GENERAL ORDERABLES Final Result [facility] [address] [place] [phone] * Chlamydia/N. Gonorrhoeae RNA, TMA, Urogenitial (10/11/2024 12:00 AM EST) CT PCR NOT DETECTED Not Detect. [facility] Comment:A not detected test result does [...] psychologicalconsequences. NG PCR NOT DETECTED Not Detect. [facility] Comment:A not detected test result does [...] adverse medical, social or psychologicalconsequences. 10/11/2024 10/11/2024 [facility] - 10/12/2024 12:18 PM EST Vaginal Generic External Data Provider LAB MICROBIOLOGY - GENERAL ORDERABLES Final Result Performing Organization Address City/State/[facility] Co de Phone Number [facility] [address] [place] [phone] * Pap Smear (10/11/2024 12:00 AM EST) 10/11/2024 10/12/2024 9:5 0 AM EST [facility] - 10/19/2024 9:56 AM EST ----- ------- Name: Anavitate,Iris ? Age/Sex: 39/F ? : 1985 Unit#: [id number] ?? Attend Dr: Ericka Martinez CNM ?Re10/11/24 ?Status: DEP REF ? Location: .LAB ?Disch: ? ----- ------- SPEC : [id number] ?RECD: 10/12/24-84 ? STATUS: ??SOUT ? REQ NUM: [id number] ? MAYI: 10/11/24-0000 ? SUBM DR: Ericka [...] Copies To: ?? Ericka Martinez CNM ?? [facility] Women[facility] Services ?? [address] [facility] Floor ?? [place] [address] ?? [phone] ?? Courtney Davila MD ?? [address] [facility] ?? [place] ?? [phone] ----- ------- Signed (signature on file) RUPINDER Cabello (ASCP) 10/19/24 0956 ? ----- ------- ? END OF REPORT ? us Generic External Data Provider LAB CYTOLOGY ATIF BENNETT Final Result [facility] [address] [place] [address] [phone] * Hepatitis C Antibody with Reflex to HCV, RNA, Quantitative, Real-Time PCR (03/04/2024 1:51 PM EDT) Hepatitis C Antibody Nonreactive Nonreactive [facility] Comment:Antibodies to HCV no t detected; does not exclude early acuteHCV infection. Blood Venous blood specimen / Unknown 03/04/2024 1:51 PM EDT 03/04/2024 2:18 PM EDT Courtney Davila MD LAB BLOOD ORDERABLES Final Re sult Performing Organization Address City/[facility]/ZIP Co de Phone Number [facility] [address] [place] [address] [phone] * HIV-1/2 Antigen and Antibodies, Fourth Generation, with Reflexes (03/04/2024 1:51 PM EDT) Pathologist [facility] HIV AB/AG Nonreactive Nonreactive [facility] Comment:HIV-1 p24 Ag and/or HIV-1/HIV-2 Ab not detected.A test result that is nonreactive does not exclude thepossibility of exposure to or infection with HIV-1 and/orHIV-2. Nonreactive results in this assay for individualswith prior exposure to HIV-1 and/or HIV-2 may be due toantigen and antibody levels that are below the limit ofdetection of this assay.The [employer] HIV Ag/Ab Combo assay result andsupplemental assay results should be interpreted inconjunction with the patient's clinical presentation,history and other laboratory results. If the results areinconsistent with clinical evidence, additional testing issuggested to confirm the result. Blood Venous blood specimen / Unknown 03/04/2024 1:51 PM EDT 03/04/2024 2:18 PM EDT us Courtney Davila MD LAB BLOOD ORDERABLES Final Re sult Performing Organization Address [facility]/ZIP Co de Phone Number [facility] [address] [place] [address] [phone] * HPV E6/E7 RFLX ROBERT 16 18/45 (07/10/2022 11:46 AM EDT) Pathologist [facility] HPV 16 RNA [facility] HPV 18/45 RNA [facility] HPV E6 E7 ADD [facility] HPV mRNA E6/E7 rflx Not Detected Not Detected [facility] Comment: Methodology: [employer] Farmer-Mediated Amplification This assay detects E6/E7 viral messenger RNA (mRNA) from 14 high-risk HPV types (16,18,31,33,35,39,45,51,52,56,58,59,66,68). Cervical sources are required for HPV testing. If a vaginal source from a patient who has had a total hysterectomy with removal of cervix was submitted, please contact the testing laboratory for alternative testing options. For additional information, please refer to http://education.[employer]/faq/XVH842d8 (This link if provided for information/ educational purposes only.) THIS TEST WAS PERFORMED AT: [employer] [address] [place] [address],[address] [place], [place] ??[phone] MORA STARR MD 07/10/2022 11:4 6 AM EDT us [place]ka [place] HISTORICAL/NON ORDERABLE LABS Fi nal Result [facility] [address] from Last 3 Months or Most Recently Relevant to Health Maintenance Insurance C3 Care Teams Yard General Car Supervisor Relationship Specialty Start Date End Date Courtney Davila MD [address] [place] [phone] PCP - General Family Medicine 03/04/24 Yony Barbosa MD Psychiatrist Psychiatry 11/17/18
--- OUTSIDE RECORDS SUMMARY | 2025-01-11 18:14 | XMS_ITS | Encounter Summary ---
Author Organization [employer] Address 75 [facility] 7 [place] [address] Care Team Providers Care Pocket Flap Creasing Machine Operator Name Role Phone Courtney Davila MD Primary Care Provider [phone] Reason for Visit * Reason Comments Med Refill Encounter Details Date Type Department Care Team ([facility] Contact Info) Description 01/11/2025 Refill [facility] MED & PEDS [address] [place] [address] Courtney Davila MD [address] [place] [address] Social History Tobacco Use Types Packs/Day Years [...] documented as of this encounter Care Teams Pocket Flap Creasing Machine Operator Relationship Specialty Start Date End Date Courtney Davila MD [address] [place] [address] PCP - General Family Medicine 03/04/24 Yony Barbosa MD Psychiatrist Psychiatry 11/17/18 documented as of this encounter
--- OUTSIDE RECORDS SUMMARY | 2025-01-11 18:14 | XMS_ITS | Encounter Summary ---
Author Organization [employer] Address [address] [facility] [address] [place] [address] Care Team Providers Care Fireman Name Role Phone Courtney Davila MD Primary Care Provider [phone] Reason for Visit * Reason Comments Med Refill Encounter Details Date Type Department Care Team ([facility] st Contact Info) Description 08/17/2024 Refill [facility] MED & PEDS [address] [place] [address] Kristy Stevens MD [address] [place] [address] Social History Tobacco Use Types Packs/Day Years [...] documented as of this encounter Care Teams Fireman Relationship Specialty Start Date End Date Courtney Davila MD [address] [place] [address] PCP - General Family Medicine 03/04/24 Yony Barbosa MD Psychiatrist Psychiatry 11/17/18 documented as of this encounter
== END 2025-01-11 15:26 | disposition home or self-care (01) ==
LOC: HO.HWS 14:33
PROVIDERS: PCP Family Medicine; Visit Provider Obstetrics & Gynecology
DX: T83.32XA Displacement of intrauterine contraceptive device, initial encounter (principal)
CPT/HCPCS: 99213

== ENCOUNTER 2025-01-12 08:18 | Outpatient (AMB) | payer MEDICAID, SELFPAY ==
--- NOTE | 2025-01-12 08:19 | MHC.OFFVIS ---
Intake Visit Reasons: pre op Cleaning Attendant: Cleaning Attendant Present (Alicia) Accompanied by: Other Relationship Allergies No Known Allergies Allergy (Verified 01/12/25 08:20) Is last menstrual period known: Yes Last menstrual period: 09/14/20 Post menopausal: No Patient : No Do you need a note to return to daycare/school/sports/work: Yes (for surgery on friday) HPI Comments Details: Presenting to discuss hysteroscopic IUD removal. No complaints PFSH Medical History Bipolar 1 disorder Depression Anxiety Umbilical hernia Lipoma of abdominal wall delivery delivered Asthma Surgical History History of loop electrical excision procedure (LEEP) Hx of section Family History Paternal Grandmother Breast CA Social History Alcohol intake: unknown Patient Tobacco Use Status: Never used Tobacco Substance Use Type: Marijuana Current occupational status: disabled Female Reproductive History Menstrual Age of Menarche: 14 Date of last menstrual period: 09/14/20 Total pregnancies: 2 Full term: 2 Review of Systems Card Reports as per HPI and Reports no additional complaints Resp Reports as per HPI and Reports no additional complaints GI Reports as per HPI and Reports no additional complaints Reports as per HPI Physical Exam Const General: cooperative, healthy appearing and comfortable Resp Effort & Inspection: normal respiratory effort Auscultation: clear to auscultation bilaterally Percussion: percussion normal Cardio Palpation: normal PMI Rate: regular rate Rhythm: regular rhythm Heart sounds: no murmurs and no rubs Peripheral pulses: Peripheral pulses 2+ throughout GI Inspection: Yes normal to inspection Palpation (GI): Soft to palpation, nontender, no guarding, not rigid and No hepatosplenomegaly present Percussion: Yes normal to percussion Auscultation: normal bowel sounds Rectal Exam - Female: deferred Assessment & Plan Assessment & Plan (1) IUD strings lost: Code(s): T83.32XA - Displacement of intrauterine contraceptive device, initial encounter Category: Medical Plan: Will proceed with hysteroscopic IUD removal. Discussed with the patient the procedure , all benefits and risks including but not limited to inability to complete the procedure , insufficient endometrial tissue for a complete evaluation of the endometrial cavity , bleeding, infection, possible need for blood transfusion with all its risk ( HIV,syphilis, Hepatitis, anaphylaxis shock, others..), injury to bladder, rectum, possible need for laparoscopy/laparotomy or hysterectomy. The patient verbalized understanding and signed the consent. Instructions given the patient to stay NPO after midnight the day prior to the procedure and to schedule a 2 week postoperative appointment Coding Level of Care Code Est Pt Level 3 (51531) Diagnoses IUD strings lost T83.32XA
--- OUTSIDE RECORDS SUMMARY | 2025-01-12 08:40 | XMS_ITS | Encounter Summary ---
Author Organization [employer] Address [address] [facility] [address] [place] [address] Care Team Providers Care Borematic Operator Name Role Phone Joseph, [facility] Primary Care Provider [phone] Courtney Davila MD Primary Care Provider [phone] Reason for Visit * Reason Onset Date Comments Nurse Triage 06/19/2023 Encounter Details Date Type Department Care Team (Late st Contact Info) Description 06/19/2023 Telephone [facility] MEDICINE [address] [place], [place] [phone] [facility] [address] [place], [place] [phone] Nurse Triage Social History Tobacco Use Types [...] water gargle. Advised Pt to come to [facility] first thing tomorrow morning. [facility] closes at 4pm today and Pt doesn't [...] accepted this outcome Please contact pt at [phone] documented in this encounter Plan of Treatment Not on file documented as of this encounter Visit Diagnoses Not on filedocumented in this encounter Care Teams Borematic Operator Relationship Specialty Start Date End Date Brittany Ruiz FNP [address] [place] [address] PCP - General Family Medicine 04/29/22 03/03/24 Courtney Davila MD [address] [place] [address] PCP - General Family Medicine 03/04/24 Yony Barbosa MD Psychiatrist Psychiatry 11/17/18 documented as of this encounter
--- OUTSIDE RECORDS SUMMARY | 2025-01-12 08:40 | XMS_ITS | Clinical Summary ---
Author Organization [employer] Address [address] [facility] 7 [place] [address] Care Team Providers Care Horologist Name Role Phone Courtney Davila MD Primary Care Provider [phone] Allergies No known active allergies Medications fluticasone-sa [...] after the ultrasound and possible referral to core finisher depending on results (Note: IUD removal is [...] Type Department Care Team Description 01/11/2025 Refill [facility] MED & PEDS [address] [place] [address] Courtney Davila MD 12/14/2024 Refill [facility] MED & PEDS [address] [place] [address] Courtney Davila MD 12/08/2024 Telephone [facility] MED & PEDS [address] [place] [address] Courtney Davila MD 10/25/2024 Refill [facility] MED & PEDS [address] [place] [address] Courtney Davila MD from Last 3 Months Immunizations Name Administration [...] PAP SMEAR Routine 10/11/2024 12:00 AM EST HEPATITIS C [...] EST Narrative 12/08/2024 5:59 AM EST ? [facility] ?[address] ?[place] [address] ? Ultrasound Report ? Signed ? Patient: Anavitate,Iris ?MR#: [id number] ?? 19 ? : 1985 ?Acct:[id number] ? Age/Sex: 39 / F ?ADM Date: 11/03/24 ? Loc: HO.US ? Attending Dr: Courtney Davila MD ? Ordering Physician: Courtney Davila MD ?? Date of Service: 11/03/24 ?? Procedure(s): US pelvic and transvaginal ?? Accession Number(s): [id number] ? cc: Courtney Davila MD ? EXAMINATION: [...] ??Kimberly Boogie MD ??12/08/2024 05:56 AM EST ? Dictated By: ?Kimberly Boogie MD ? Signed By: ?<Electronically signed by Kimberly Boogie MD in OV> ? 12/08/24 0556 ? DD/ 1054 ? TD/TT: 11/03/24 1105 ? Property Maintenance Supervisor: ? Procedure Note Tanya, Vin - 12/08/[address] [address] Ultrasound Report Signed Patient: CarineRosalba#: [id number] 19 : 1985Acct:[id number] Age/Sex: 39 / FADM Date: 11/03/24 Loc: HO.US Attending Dr: Courtney Davila MD Ordering Physician: Courtney Davila MD Date of Service: 11/03/24 Procedure(s): US pelvic and transvaginal Accession Number(s): [id number] cc: Courtney Davila MD EXAMINATION: US PELVIS [...] 12/08/24 0556 DD/ 1054 TD/TT: 11/03/24 1105 Property Maintenance Supervisor: us Courtney Davila MD IMG US PROCEDURES Final Resul t * Pap Smear (10/11/2024 12:00 AM EST) 10/11/2024 10/12/2024 9:5 0 AM EST [facility] - 10/19/2024 9:56 AM EST ----- ------- Name: Anavitate,Iris ? Age/Sex: 39/F ? : 1985 Unit#: [id number] ?? Attend Dr: Ericka Martinez CNM ?Re10/11/24 ?Status: DEP REF ? Location: .LAB ?Disch: ? ----- ------- SPEC : [id number] ?RECD: 10/12/24 ? STATUS: ??SOUT ? REQ NUM: [id number] ? MAYI: 10/11/24-0000 ? SUBM DR: Ericka [...] Copies To: ?? Ericka Martinez CNM ?? [facility] ?? [address] [facility], 3rd Floor ?? [place] [phone] ?? [phone] ?? Courtney Davila MD ?? [address] [facility] ?? [place] [address] ?? [phone] ----- ------- Signed (signature on file) RUPINDER Cabello (ASCP) 10/19/24 0956 ? ----- ------- ? END OF REPORT ? us Generic External Data Provider LAB CYTOLOGY ATIF BENNETT Final Result Performing Organization Address [facility]/ZIP Co de Phone Number [facility] [address] [place] [phone] * Hepatitis C Antibody with Reflex to HCV, RNA, Quantitative, Real-Time PCR (03/04/2024 1:51 PM EDT) Hepatitis C Antibody Nonreactive Nonreactive [facility] Comment:Antibodies to HCV no t detected; does not exclude early acuteHCV infection. Blood Venous blood specimen / Unknown 03/04/2024 1:51 PM EDT 03/04/2024 2:18 PM EDT us Courtney Davila MD LAB BLOOD ORDERABLES Final Re sult Performing Organization Address [facility] Co de Phone Number [facility] [address] [place] [phone] * HIV-1/2 Antigen and Antibodies, Fourth Generation, with Reflexes (03/04/2024 1:51 PM EDT) Pathologist [facility] HIV AB/AG Nonreactive Nonreactive [facility] Comment:HIV-1 p24 Ag and/or HIV-1/HIV-2 Ab not detected.A test result that is nonreactive does not exclude thepossibility of exposure to or infection with HIV-1 and/orHIV-2. Nonreactive results in this assay for individualswith prior exposure to HIV-1 and/or HIV-2 may be due toantigen and antibody levels that are below the limit ofdetection of this assay.The [employer] HIV Ag/Ab Combo assay result andsupplemental assay results should be interpreted inconjunction with the patient's clinical presentation,history and other laboratory results. If the results areinconsistent with clinical evidence, additional testing issuggested to confirm the result. Blood Venous blood specimen / Unknown 03/04/2024 1:51 PM EDT 03/04/2024 2:18 PM EDT us Courtney Davila MD LAB BLOOD ORDERABLES Final Re sult Performing Organization Address [facility]/State/ZIP Co de Phone Number [facility] [address] [place] [address] [phone] * HPV E6/E7 RFLX ROBERT 16 18/45 (07/10/2022 11:46 AM EDT) HPV 16 RNA [facility] HPV 18/45 RNA [facility] HPV E6 E7 ADD [facility] HPV mRNA E6/E7 rflx Not Detected Not Detected [facility] Comment: Methodology: Mining Engineering Technologist-Mediated Amplification This assay detects E6/E7 viral messenger RNA (mRNA) from 14 high-risk HPV types (16,18,31,33,35,39,45,51,52,56,58,59,66,68). Cervical sources are required for HPV testing. If a vaginal source from a patient who has had a total hysterectomy with removal of cervix was submitted, please contact the testing laboratory for alternative testing options. For additional information, please refer to http://education.[employer]/faq/VKS588v3 (This link if provided for information/ educational purposes only.) THIS TEST WAS PERFORMED AT: [facility] [address] [place] [address],[address] [place], [place] ??[phone] MORA STARR MD 07/10/2022 11:4 6 AM EDT us Ericka SiddiqiKeith HISTORICAL/NON ORDERABLE LABS Fi nal Result [facility] [address] from Last 3 Months or Most Recently Relevant to Health Maintenance Insurance Care Teams Horologist Relationship Specialty Start Date End Date Courtney Davila MD [address] [place] [phone] PCP - General Family Medicine 03/04/24 Yony Barbosa MD Psychiatrist Psychiatry 11/17/18
--- OUTSIDE RECORDS SUMMARY | 2025-01-12 08:40 | XMS_ITS | Encounter Summary ---
Author Organization [employer] Address [address] [facility] 7 [place] [address] Care Team Providers Care Director Service Name Role Phone Courtney Davila MD Primary Care Provider [phone] Reason for Visit * Reason Comments Med Refill Encounter Details Date Type Department Care Team ([facility] st Contact Info) Description 08/17/2024 Refill [facility] MED & PEDS [address] [place] [address] Kristy Stevens MD [address] [place] [address] Social History Tobacco Use Types Packs/Day Years [...] documented as of this encounter Care Teams Director Service Relationship Specialty Start Date End Date Courtney Davila MD [address] [place] [address] PCP - General Family Medicine 03/04/24 Yony Barbosa MD Psychiatrist Psychiatry 11/17/18 documented as of this encounter
--- OUTSIDE RECORDS SUMMARY | 2025-01-12 08:40 | XMS_ITS | Encounter Summary ---
Author Organization [employer] Address [address] [facility] 7 [place] [address] Care Team Providers Care Bakery Sales Clerk Name Role Phone Courtney Davila MD Primary Care Provider [phone] Reason for Visit * Reason Comments Med Refill Encounter Details Date Type Department Care Team ([facility] Contact Info) Description 12/14/2024 Refill [facility] MED & PEDS [address] [place] [address] Courtney Davila MD [address] [place] [address] Social History Tobacco Use Types Packs/Day Years [...] documented as of this encounter Care Teams Bakery Sales Clerk Relationship Specialty Start Date End Date Courtney Davila MD [address] [place] [address] PCP - General Family Medicine 03/04/24 Ynoy Barbosa MD Psychiatrist Psychiatry 11/17/18 documented as of this encounter
--- OUTSIDE RECORDS SUMMARY | 2025-01-12 08:40 | XMS_ITS | Encounter Summary ---
Author Organization [employer] Address [address] [facility] 7 [place] [address] Care Team Providers Care Director Of Professional Services Name Role Phone Courtney Davila MD Primary Care Provider [phone] Reason for Visit * Reason Comments Med Refill Encounter Details Date Type Department Care Team ([facility] Contact Info) Description 01/11/2025 Refill [facility] MED & PEDS [address] [place] [address] Courtney Davila MD [address] [place] [address] Social History Tobacco Use Types Packs/Day Years [...] as of this encounter Care Teams Director Of Professional Services Relationship Specialty Start Date End Date Courtney Davila MD [address] [place] [address] PCP - General Family Medicine 03/04/24 Yony Barbosa MD Psychiatrist Psychiatry 11/17/18 documented as of this encounter
--- OUTSIDE RECORDS SUMMARY | 2025-01-12 08:40 | XMS_ITS | Encounter Summary ---
Author Organization [employer] Address [address] [facility] 7 [place] [address] Care Team Providers Care Blast Furnace Blower Name Role Phone Courtney Davila MD Primary Care Provider Reason for Visit * Reason Comments Med Refill Encounter Details Date Type Department Care Team ([facility] st Contact Info) Description 07/21/2024 Refill [facility] MED & PEDS [address] [place] [address] Kristy Stevens MD [address] [place] [address] Social History Tobacco Use Types Packs/Day Years [...] documented as of this encounter Care Teams Blast Furnace Blower Relationship Specialty Start Date End Date Courtney Davila MD [address] [place] [address] PCP - General Family Medicine 03/04/24 Yony Barbosa MD Psychiatrist Psychiatry 11/17/18 documented as of this encounter
== END 2025-01-12 08:34 | disposition home or self-care (01) ==
LOC: HO.HWS 08:18
PROVIDERS: PCP Family Medicine; Visit Provider Obstetrics & Gynecology
DX: T83.32XA Displacement of intrauterine contraceptive device, initial encounter (principal)
CPT/HCPCS: 99213

== ENCOUNTER → 2025-01-12 08:18 | Outpatient (BNVA) | payer MEDICAID, SELFPAY | PROVIDERS: PCP Family Medicine; Visit Provider Obstetrics & Gynecology | DX: T83.32XA Displacement of intrauterine contraceptive device, initial encounter (principal) | CPT/HCPCS: 99212 ==

== ENCOUNTER 2025-01-14 08:27 | Day surgery (SDC) | payer MEDICAID, SELFPAY ==
--- OUTSIDE RECORDS SUMMARY | 2025-01-12 15:43 | XMS_ITS | Encounter Summary ---
Author Organization [employer] Address [address] [facility] 7 [place] [address] Care Team Providers Care Food Preparation Supervisor Name Role Phone Joseph, [facility] Primary Care Provider [phone] Courtney Davila MD Primary Care Provider [phone] Reason for Visit * Reason Onset Date Comments Nurse Triage 06/19/2023 Encounter Details Date Type Department Care Team (Late st Contact Info) Description 06/19/2023 Telephone [facility] MEDICINE [address] [place], [place] [phone] [facility] [address] [place], [place] [phone] Nurse Triage Social History Tobacco Use Types [...] water gargle. Advised Pt to come to [facility] first thing tomorrow morning. [facility] closes at 4pm today and Pt doesn't [...] accepted this outcome Please contact pt at [phone] documented in this encounter Plan of Treatment Not on file documented as of this encounter Visit Diagnoses Not on filedocumented in this encounter Care Teams Food Preparation Supervisor Relationship Specialty Start Date End Date Brittany Ruiz FNP [address] [place] [address] PCP - General Family Medicine 04/29/22 03/03/24 Courtney Davila MD [address] [place] [address] PCP - General Family Medicine 03/04/24 Yony Barbosa MD Psychiatrist Psychiatry 11/17/18 documented as of this encounter
--- OUTSIDE RECORDS SUMMARY | 2025-01-12 15:43 | XMS_ITS | Encounter Summary ---
Author Organization [employer] Address [address] [facility] 7 [place] [address] Care Team Providers Care Media Intern Name Role Phone Courtney Davila MD Primary Care Provider [phone] Reason for Visit * Reason Comments Med Refill Encounter Details Date Type Department Care Team ([facility] Contact Info) Description 12/14/2024 Refill [facility] MED & PEDS [address] [place] [address] Courtney Davila MD [address] [place] [address] Social History Tobacco Use Types Packs/Day Years [...] documented as of this encounter Care Teams Media Intern Relationship Specialty Start Date End Date Courtney Davila MD [address] [place] [address] PCP - General Family Medicine 03/04/24 Yony Barbosa MD Psychiatrist Psychiatry 11/17/18 documented as of this encounter
--- OUTSIDE RECORDS SUMMARY | 2025-01-12 15:43 | XMS_ITS | Clinical Summary ---
Author Organization [employer] Address [address] [facility] [address] [place] [address] Care Team Providers Care Railway Patrol Officer Name Role Phone Courtney Davila MD Primary Care Provider [phone] Allergies No known active allergies Medications cholecalcifero l (Vitamin D-3) 50 MCG (1999) tablet Take 2,000 Units by mouth in [...] HOURS NEEDED 18 g 1 4 Active pregabalin (Lyrica) 150 MG capsule TAKE 1 CAPSULE BY MOUTH TWICE A DAY 60 capsule 5 4 Active cyclobenzaprin e (Flexeril) 10 MG tablet TAKE 1 TABLET BY MOUTH EVERY MORNING, NOON AND EVERY NIGHT AT BEDTIME FOR MUSCLE SPASM 90 tablet 3 5 Active Advair HFA 230-21 MCG/ACT inhaler INHALE 2 PUFFS EVERY 12 (TWELVE) HOURS. 12 g 11 5 Active SUMAtriptan (Imitrex) 50 MG tablet TAKE 1 TABLET BY MOUTH DAILY NEEDED FOR MIGRAINE 9 tablet 2 5 Active fluticasone-sa lmeterol (Advair HFA) 230-21 MCG/ACT inhaler Inhale 2 puffs every 12 (twelve) hours. 12 g 11 4 025 Discontinued cyclobenzaprin e (Flexeril) 10 MG tablet TAKE 1 TABLET BY MOUTH EVERY MORNING, NOON AND AT BEDTIME FOR MUSCLE SPASMS 90 tablet 3 4 025 Discontinued SUMAtriptan (Imitrex) 50 MG tablet TAKE 1 TABLET (50 MG) BY MOUTH 1 (ONE) TIME IF NEEDED FOR MIGRAINE. 9 tablet 2 4 025 Discontinued Active Problems Problem Noted Date Diagnosed Date Left ovarian cyst 10/04/2024 Assessment & Plan (10/04/2024 1:16 PM EST): Ordering US for further evaluation. Discussed medication refills. Relevant Medications Ibuprofen 800 mg Tablet Fibromyalgia 04/01/2024 Assessment & Plan (07/09/2024 10:53 AM EDT): Pt reports that Pregabalin (Lyrica) 150 MG capsule is helping tolerate the pain. IUD threads lost 04/01/2024 Overview (01/12/2025): Seen by Dr. Alvarado 01/12/25 and scheduled to undergo hysteroscopic IUD removal. Assessment & Plan (04/01/2024 5:49 PM EDT): - US Pelvis was ordered - US Pelvis Transvaginal ordered -F/U after the ultrasound and possible referral to cured meat packing supervisor depending on results (Note: IUD removal is [...] Care Team Description 01/11/2025 Refill [facility] MED & PEDS [address] [place] [address] Courtney Davila MD 12/14/2024 Refill [facility] MED & PEDS [address] [place] [address] Courtney Davila MD 12/08/2024 Telephone [facility]EDS [address] [place] [address] Courtney Davila MD 10/25/2024 Refill [facility] & PEDS [address] [place] [address] Courtney Davila MD from Last 3 Months [...] (Patient Refused) Depression Screening 07/09/2025 07/09/2024, 07/09/20 24 Alcohol/Substance Use Screening 10/04/2025 10/04/2024 Tobacco Screening [...] EST Narrative 12/08/2024 5:59 AM EST ? [facility] ?[address] ?[place] [address] ? Ultrasound Report ? Signed ? Patient: Anavitate,Iris ?MR#: [id number] ?? 19 ? : 1985 ?Acct:[id number] ? Age/Sex: 39 / F ?ADM Date: 11/03/24 ? Loc: HO.US ? Attending Dr: Courtney Davila MD ? Ordering Physician: Courtney Davila MD ?? Date of Service: 11/03/24 ?? Procedure(s): US pelvic and transvaginal ?? Accession Number(s): [id number] ? cc: Courtney Davila MD ? EXAMINATION: [...] DD/ 1054 ? TD/TT: 11/03/24 1105 ? Resident Services Director: ? Procedure Note aTnya, Image - 12/08/2024 [place] [address] Ultrasound Report Signed Patient: Rosalba Hawk#: [id number] 18 : 1985Acct:[id number] Age/Sex: 39 / FADM Date: 11/03/24 Loc: HO.US Attending Dr: Courtney Davila MD Ordering Physician: Courtney Davila MD Date of Service: 11/03/24 Procedure(s): US pelvic and transvaginal Accession Number(s): [id number] cc: Courtney Davila MD EXAMINATION: US PELVIS [...] 12/08/24 0556 DD/ 1054 TD/TT: 11/03/24 1105 Resident Services Director: us Courtney Davila MD [facility] PROCEDURES Final Resul t * Pap Smear (10/11/2024 12:00 AM EST) 10/11/2024 10/12/2024 9:5 0 AM EST Narrative [facility] - 10/19/2024 9:56 AM EST ----- ------- Name: Anavitate,Iris ? Age/Sex: 39/F ? : 1985 Unit#: [id number] ?? Attend Dr: Ercika Martinez CNM ?Re10/11/24 ?Status: DEP REF ? Location: .LAB ?Disch: ? ----- ------- SPEC : [id number] ?RECD: 10/12/24-949 ? STATUS: ??SOUT ? REQ NUM: [id number] ? MAYI: 10/11/24-0000 ? SUBM DR: Ericka Martinez CNJulissa ? ENTERED: ??10/12/24-1006 ?SP TYPE: Pap Smr [...] Copies To: ?? Ericka Martinez CNM ?? [facility] ?? [address] [facility], [address] ?? [place] [phone] ?? [phone] ?? Courtney Davila MD ?? [address] [facility] ?? [place] [address] ?? [phone] ----- ------- Signed (signature on file) RUPINDER Cabello (ASCP) 10/19/24 0956 ? ----- ------- ? END OF REPORT ? us Generic External Data Provider LAB CYTOLOGY ADRIELE RABINGA Final Result Performing Organization Address [facility] Co de Phone Number [facility] [address] [place] [phone] * Hepatitis C Antibody with Reflex to HCV, RNA, Quantitative, Real-Time PCR (03/04/2024 1:51 PM EDT) [facility] Hepatitis C Antibody Nonreactive Nonreactive [facility] Comment:Antibodies to HCV no t detected; does not exclude early acuteHCV infection. Blood Venous blood specimen / Unknown 03/04/2024 1:51 PM EDT 03/04/2024 2:18 PM EDT Courtney Davila MD LAB BLOOD ORDERABLES Final Re sult Performing Organization Address [facility] Co de Phone Number [facility] [address] [place] [address] [phone] * HIV-1/2 Antigen and Antibodies, Fourth Generation, with Reflexes (03/04/2024 1:51 PM EDT) [facility] HIV AB/AG Nonreactive Nonreactive [facility] Comment:HIV-1 p24 Ag and/or HIV-1/HIV-2 Ab not detected.A test result that is nonreactive does not exclude thepossibility of exposure to or infection with HIV-1 and/orHIV-2. Nonreactive results in this assay for individualswith prior exposure to HIV-1 and/or HIV-2 may be due toantigen and antibody levels that are below the limit ofdetection of this assay.The [employer] HIV Ag/Ab Combo assay result andsupplemental assay results should be interpreted inconjunction with the patient's clinical presentation,history and other laboratory results. If the results areinconsistent with clinical evidence, additional testing issuggested to confirm the result. Blood Venous blood specimen / Unknown 03/04/2024 1:51 PM EDT 03/04/2024 2:18 PM EDT us Courtney Davila MD LAB BLOOD ORDERABLES Final Re sult [facility] [address] [place] [phone] * HPV E6/E7 RFLX ROBERT 16 18/45 (07/10/2022 11:46 AM EDT) Pathologist [facility] HPV 16 RNA [facility] HPV 18/45 RNA [facility] HPV E6 E7 ADD [facility] HPV mRNA E6/E7 rflx Not Detected Not Detected [facility] Comment: Methodology: Information Security Risk Analyst-Mediated Amplification This assay detects E6/E7 viral messenger RNA (mRNA) from 14 high-risk HPV types (16,18,31,33,35,39,45,51,52,56,58,59,66,68). Cervical sources are required for HPV testing. If a vaginal source from a patient who has had a total hysterectomy with removal of cervix was submitted, please contact the testing laboratory for alternative testing options. For additional information, please refer to http://education.Edumedics.SpeakGlobal/faq/DOA903v0 (This link if provided for information/ educational purposes only.) THIS TEST WAS PERFORMED AT: [employer] [address] [place] [address] [address] [facility],[address] [place], [place] ??[phone] MORA STARR MD 07/10/2022 11:4 6 AM EDT us Ericka Martinez HISTORICAL/NON ORDERABLE LABS Fi nal Result [facility] [address] from Last 3 Months or Most Recently Relevant to Health Maintenance [place] [address] [place] [address] C3 Care Teams Railway Patrol Officer Relationship Specialty Start Date End Date Courtney Davila MD [address] [place] [phone] PCP - General Family Medicine 03/04/24 Yony Barbosa MD Psychiatrist Psychiatry 11/17/18
--- OUTSIDE RECORDS SUMMARY | 2025-01-12 15:43 | XMS_ITS | Encounter Summary ---
Author Organization [employer] Address [address] [facility] [address] [place] [address] Care Team Providers Care Senior Risk Analyst Name Role Phone Courtney Davila MD Primary Care Provider [phone] Reason for Visit * Reason Comments Med Refill Encounter Details Date Type Department Care Team ([facility] Contact Info) Description 01/11/2025 Refill [facility] MED & PEDS [address] [place] [address] Courtney Davila MD [address] [place] [address] Social History Tobacco Use Types Packs/Day Years [...] documented as of this encounter Care Teams Senior Risk Analyst Relationship Specialty Start Date End Date Courtney Davila MD [address] [place] [address] PCP - General Family Medicine 03/04/24 Yony Barbosa MD Psychiatrist Psychiatry 11/17/18 documented as of this encounter
--- OUTSIDE RECORDS SUMMARY | 2025-01-12 15:43 | XMS_ITS | Encounter Summary ---
Author Organization [employer] Address [address] [facility] [address] [place] [address] Care Team Providers Care Registered Health Nurse Name Role Phone Courtney Davila MD Primary Care Provider [phone] Reason for Visit * Reason Comments Med Refill Encounter Details Date Type Department Care Team ([facility] st Contact Info) Description 07/21/2024 Refill [facility] MED & PEDS [address] [place] [address] Kristy Stevens MD [address] [place] [address] Social History Tobacco Use Types Packs/Day Years [...] documented as of this encounter Care Teams Registered Health Nurse Relationship Specialty Start Date End Date Courteny Davila MD [address] [place] [address] PCP - General Family Medicine 03/04/24 Yony Barbosa MD Psychiatrist Psychiatry 11/17/18 documented as of this encounter
--- OUTSIDE RECORDS SUMMARY | 2025-01-12 15:43 | XMS_ITS | Encounter Summary ---
Author Organization [employer] Address [address] [facility] [address] [place] [address] Care Team Providers Care Pit Steward Name Role Phone Courtney Davila MD Primary Care Provider [phone] Reason for Visit * Reason Comments Med Refill Encounter Details Date Type Department Care Team ([facility] st Contact Info) Description 08/17/2024 Refill [facility] MED & PEDS [address] [place] [address] Kristy Stevens MD [address] [place] [address] Social History Tobacco Use Types Packs/Day Years [...] documented as of this encounter Care Teams Pit Steward Relationship Specialty Start Date End Date Courtney Davila MD [address] [place] [address] PCP - General Family Medicine 03/04/24 Yony Barbosa MD Psychiatrist Psychiatry 11/17/18 documented as of this encounter
[2025-01-14 09:00] LABS: UPreg QC Valid YES; Urine Pregnancy NEGATIVE (NEGATIVE)
[2025-01-14 09:08] VITALS: BP 127/84; PULSE 85; RESP 16; TEMP 37; O2SAT 99; BMI 28.5
--- NOTE | 2025-01-14 09:31 | HO.ANESPROP2 ---
HPI - Anesthesia Eval Consult details Narrative: 39 yo F presenting for hysteroscopy and IUD removal PMFSH Active Problems Active Problems: All Active Problems IUD strings lost (Acute) REFUGIO positive (Acute) Umbilical hernia (Acute) Lipoma of abdominal wall (Acute) History of loop electrical excision procedure (LEEP) (Acute) Presence of 52 mg levonorgestrel-releasing intrauterine device (IUD) (Acute) Screen for sexually transmitted diseases (Acute) Hx of abnormal cervical Pap smear (Acute) Well woman exam with routine gynecological exam (Acute) Hoarseness of voice (Acute) Environmental allergies (Acute) Asthma (Acute) Past Medical History Medical History Bipolar 1 disorder Depression Anxiety Umbilical hernia Lipoma of abdominal wall delivery delivered Asthma Family History Family History Paternal Grandmother Breast CA Family history of problems with anesthesia: No Surgical History Surgical History History of loop electrical excision procedure (LEEP) Hx of section History of Problems with Anesthesia: Unobtainable (never had anesthesia) Social History Social History Are you a primary career development counselor to a significant other at home: No Do you presently have visiting nurse or other home services: No Alcohol intake: unknown Patient Tobacco Use Status: Never used Tobacco Second Hand Smoke Exposure: No Use of substances other than those prescribed or required for medical reasons: Yes Substance Use Type: Marijuana Substance Use Frequency: Daily Have you been hit, kicked, punched, or otherwise hurt by someone within the past year? If so, by whom?: No Are you DNR?: No Advance Directives: No Advance Directives Information Provided: Yes Advance Directives on File: No Recently lost weight without trying: No Eating poorly because of decreased appetite: No Nutrition Risks: No Nutritional Risk Patient : No : No Poor oral hygiene: No Current occupational status: disabled Meds Allergies Allergy/AdvReac Type Severity Reaction Status Date / Time No Known Allergies Allergy Verified 01/12/25 08:20 Home Medications ?Medication ?Instructions ?Recorded ?Confirmed ?Last Taken ?Type levonorgestrel 21 mcg/24 hr (up to intrauterine 07/05/21 10/11/24 Unknown History 8 years) 52 mg intrauterine device (Mirena) citalopram 10 mg tablet (Celexa) 10 mg PO DAILY 07/10/22 10/11/24 Unknown History albuterol sulfate 90 mcg/actuation 2 puff inhalation QID 10/06/23 10/11/24 Unknown History aerosol inhaler lamotrigine 50 mg tablet,extended 50 mg PO DAILY 10/06/23 10/11/24 Unknown History release 24 hr lorazepam 0.5 mg tablet (Ativan) 0.5 mg PO DAILY PRN 12/29/24 Unknown History Exam Exam Date and Time: 01/14/25 0920 Height,Weight and Vital Signs: Height 5 ft 3 in Weight 73.028 kg Last Vital Signs Temp 98.6 F 01/14/25 09:08 Pulse 85 01/14/25 09:08 Resp 16 01/14/25 09:08 BP 127/84 01/14/25 09:08 Pulse Ox 99 01/14/25 09:08 O2 Del Method Room Air 01/14/25 09:08 Pertinent Lab Results Pertinent Lab Results: Laboratory Tests 01/14/25 08:45 Urine Test NEGATIVE Airway Mallampati Class: II TM Dist: >3cm Neck ROM: Full Loose/Missing/Broken Teeth: No (patient denies any loose or broken teeth) Heart: S1S2 Lungs: CTAB Assessment and Plan Assessment Anesthesia Assessment: Anesthesia Plan Discussed and Chart Reviewed Final Anesthetic Review Family History of Problems with Anesthesia: No History of Problems with Anesthesia: Unobtainable (never had anesthesia) NPO: Yes ASA Class: II Final Preanesthetic Review: No Changes in Pt Med Stat, Meds/Allgs Chart Reviewed, Consent Obtained/Reviewed and Anes Risks/Benef Reviewed Patient Risk: Low Procedure Risk: Low Anesthetic Plan Anesthetic Plan: MAC: and Agree w/ Assess. and Plan Disposition: Standard PACU
--- NOTE | 2025-01-14 09:47 | MHC.SHP ---
Pre-Procedural Eval Section A - 24 Hr Update-Section A only Date of Service: 01/14/25 The patient is an INPATIENT: No Changes since office visit: No Cold of Flu in the past 2 weeks, No New Medical Problems, No Changes in Medication and No Patient answered all questions The patient has been examined within 24 hours of the surgical procedure. The History & Physical has been completed within 30 days and I have reviewed it.: Yes Section B - Complete if H&P > 30 days Chief Complaint: Displacement of intrauterine contraceptive device, Allergies: Allergies Allergy/AdvReac Type Severity Reaction Status Date / Time No Known Allergies Allergy Verified 01/12/25 08:20 Plan Diagnosis/Plan: Unchanged I have reviewed the history and physical and performed a pertinent physical examination on my patient. No changes have occurred unless specified. Time Spent With Patient Time: Total time managing care of this patient today ____ minutes.
[2025-01-14] MEDS: Lactated Ringers 1,000 ML 80 ML IVCONT (09:48)
--- NOTE | 2025-01-14 10:11 | P.BOP_ITS ---
Brief Operative Note Date of Service: 01/14/25 Pre-op diagnosis: IUD complication, lost string Post-op diagnosis: same (Mirena IUD in utero) Procedure: Hysteroscopic Mirena IUD removal Surgeon: Carlyle Alvarado MD Anesthesia: MAC Was an Sharepoint Administrator used for this Procedure?: No Estimated blood loss (mL): 0 Pathology: other (IUD) Condition: stable Disposition: PACU
--- NOTE | 2025-01-14 10:11 | W.PM.OPN ---
Operative Note Operative Note Date of Service: 01/14/25 Narrative: Preop Diagnosis: IUD complication, lost string Operation: Diagnostic Hysteroscopic Mirena IUD removal Post Op Diagnosis: same. Mirena IUD and string in utero QBL: Minimal Anesthesia: MAC Surgeon: Carlyle Alvarado MD Cashier Or Checker Stock Clerk: None Complication: None Pathology: None Procedure: The patient was put in the dorsal lithotomy position, scrubbed, and draped in the usual manner. A sterile speculum was inserted in the patient's vagina. The anterior lip of the cervix was grasped with a single tooth tenaculum. The cervix was dilated up to 5 mm, then the scope was inserted in the patient's uterus. Inspection revealed Mirena IUD & its string in utero. A hysteroscopic grasper was introduced through the operative channel, the string grasped and IUD pulled out of the uterine cavity with no complications. At the end of the procedure, all instruments were taken out of the patient uterine and vaginal cavity. The single tooth tenaculum was removed and homeostasis was assured using pressure. The patient tolerated the procedure well and was transferred to the PACU in a stable condition.
[2025-01-14 10:18] VITALS: BP 101/67; PULSE 90; RESP 12; TEMP 36.6; O2SAT 97
[2025-01-14 10:23] VITALS: BP 107/74; PULSE 81; RESP 14; O2SAT 95
[2025-01-14] MEDS: Ketorolac Tromethamine 30 MG/ML VIAL IVPUSH (10:30)
[2025-01-14 10:33] VITALS: BP 112/74; PULSE 74; RESP 16; O2SAT 96
[2025-01-14 10:45] VITALS: BP 115/76; PULSE 71; RESP 18; TEMP 36.6; O2SAT 97
== END 2025-01-14 11:01 | disposition home or self-care (01) ==
PROVIDERS: PCP Family Medicine; Visit Provider Obstetrics & Gynecology
PROC: 0UJD8ZZ Inspection of Uterus and Cervix, Via Natural or Artificial Opening Endoscopic (ICD-10-PCS; CPT 58555; principal; 2025-01-14 10:30)
DX: T83.32XA Displacement of intrauterine contraceptive device, initial encounter (principal); Y76.8 Miscellaneous obstetric and gynecological devices associated with adverse incidents, not elsewhere classified; Y92.9 Unspecified place or not applicable; Y84.8 Other medical procedures as the cause of abnormal reaction of the patient, or of later complication, without mention of misadventure at the time of the procedure; F31.9 Bipolar disorder, unspecified; J45.909 Unspecified asthma, uncomplicated; Z79.899 Other long term (current) drug therapy; Z98.890 Other specified postprocedural states
CPT/HCPCS: 58562; 81025; 88300; 88302; 88304; J1885; J2003; J2250; J2704; J3010

== ENCOUNTER → 2025-01-14 08:27 | Outpatient (BNV) | payer MEDICAID, SELFPAY | PROVIDERS: PCP Family Medicine; Visit Provider Obstetrics & Gynecology | DX: T83.32XA Displacement of intrauterine contraceptive device, initial encounter (principal) | CPT/HCPCS: 58562 ==

== ENCOUNTER 2025-02-04 10:20 | Outpatient (AMB) | payer MEDICAID, SELFPAY ==
--- NOTE | 2025-02-04 10:20 | A.OFFVIS_ITS ---
Intake Visit Reasons: post op Allergies No Known Allergies Allergy (Verified 01/12/25 08:20) HPI Comments Details: The patient is scheduled tele health visit post hysteroscopic IUD removal. Doing well with no complaints PFSH Medical History Bipolar 1 disorder Depression Anxiety Umbilical hernia Lipoma of abdominal wall delivery delivered Asthma Surgical History History of loop electrical excision procedure (LEEP) Hx of section Family History Paternal Grandmother Breast CA Social History Are you a primary insurance healthcare consultant to a significant other at home: No Do you presently have visiting nurse or other home services: No Alcohol intake: unknown Patient Tobacco Use Status: Never used Tobacco Second Hand Smoke Exposure: No Substance Use Type: Marijuana Current occupational status: disabled Female Reproductive History Menstrual Age of Menarche: 14 Review of Systems Const All systems reviewed & are unremarkable except as noted in HPI and below Reports as per HPI and Reports no additional complaints GI Reports no additional complaints Reports no additional complaints Telehealth Telehealth Telehealth Platform: [facility] Location of provider rendering services: practice address Location of patient: address on file Patient Identification confirmed using: Name, : Yes Telehealth method: video Patient verbally consented to treatment: Yes Patient verbally consented to billing insurance company: Yes Patient informed of any privacy concerns related to visit: Yes Minutes spent on Phone/Video with Pt.: 3 Assessment & Plan Assessment & Plan (1) IUD strings lost: Comment: Status post hysteroscopic IUD removal Code(s): T83.32XA - Displacement of intrauterine contraceptive device, initial encounter Category: Medical Plan: Discussed with the patient the intraoperative finding, IUD removed with no complication. Offered the patient has been offered her control, the patient declined at this point. Instructions given the patient to use a backup method for , all questions answered, the patient verbalized understanding. I spent a total of 20 minutes reviewing the chart, talking to the patient via video and documenting in the medical record. Coding Level of Care Code Tele Est Pt Level 3 (90263) Diagnoses IUD strings lost T83.32XA
--- OUTSIDE RECORDS SUMMARY | 2025-02-04 12:23 | XMS_ITS | Encounter Summary ---
Author Organization [employer] Address [address] [facility] [address] [place] [address] Care Team Providers Care Director Of Financial Aid Name Role Phone Joseph, [facility] Primary Care Provider [phone] Courtney Davila MD Primary Care Provider [phone] Reason for Visit * Reason Onset Date Comments Nurse Triage 06/19/2023 Encounter Details Date Type Department Care Team (Late st Contact Info) Description 06/19/[address] [facility] [address] [place], [place] [phone] [facility] [address] [place], [place] [phone] Nurse Triage Social History Tobacco Use Types [...] water gargle. Advised Pt to come to [facility] first thing tomorrow morning. [facility] closes at 4pm today and [...] accepted this outcome Please contact pt at [phone] documented in this encounter Plan of Treatment Not on file documented as of this encounter Visit Diagnoses Not on filedocumented in this encounter Care Teams Director Of Financial Aid Relationship Specialty Start Date End Date Brittany Ruiz FNP [address] [place] [address] PCP - General Family Medicine 04/29/22 03/03/24 Courtney Davila MD [address] [place] [address] PCP - General Family Medicine 03/04/24 Yony Barbosa MD Psychiatrist Psychiatry 11/17/18 documented as of this encounter
--- OUTSIDE RECORDS SUMMARY | 2025-02-04 12:23 | XMS_ITS | Clinical Summary ---
Author Organization [employer] Address [address] [facility] 7 [place] [address] Care Team Providers Care Machine Adjuster Helper Name Role Phone Courtney Davila MD Primary Care Provider [phone] Allergies No known active allergies Medications cholecalcifero l (Vitamin D-3) 50 MCG (1999) tablet Take 2,000 Units by mouth in the morning. 120 tablet 3 03/04/20 24 Active Blood Pressure kitIndications :Elevated blood pressure reading 1 Units in the morning. 1 kit 03/04/20 24 Active lamoTRIgine (LaMICtal) 100 MG tabletIndicati ons:Bipolar Mood Disorder Take 100 mg by mouth Once per day. Active citalopram (CeleXA) 40 MG tabletIndicati ons:Major Depressive Disorder Take 40 mg by mouth Once per day. Active topiramate (Topamax) 100 MG tablet Take 1 tablet (100 mg) by mouth 2 times daily. 180 tablet 11 07/09/20 24 Active rosuvastatin (Crestor) 40 MG tablet TAKE 1 TABLET BY MOUTH EVERY MORNING 90 tablet 1 08/26/20 24 Active pregabalin (Lyrica) 150 MG capsule TAKE 1 CAPSULE BY MOUTH TWICE A DAY 60 capsule 5 10/26/20 24 Active cyclobenzaprin e (Flexeril) 10 MG tablet TAKE 1 TABLET BY MOUTH EVERY MORNING, NOON AND EVERY NIGHT AT BEDTIME FOR MUSCLE SPASM 90 tablet 3 12/16/19 25 Active Advair HFA 230-21 MCG/ACT inhaler INHALE 2 PUFFS EVERY 12 (TWELVE) HOURS. 12 g 11 01/12/20 25 Active SUMAtriptan (Imitrex) 50 MG tablet TAKE 1 TABLET BY MOUTH DAILY NEEDED FOR MIGRAINE 9 tablet 2 01/12/20 25 Active albuterol (Ventolin HFA) 108 (90 Base) MCG/ACT inhaler INHALE 2 PUFFS BY MOUTH EVERY FOUR HOURS NEEDED 18 g 1 01/14/20 25 Active fluticasone-sa lmeterol (Advair HFA) 230-21 MCG/ACT inhaler Inhale 2 puffs every 12 (twelve) hours. 12 g 11 03/04/20 24 025 Discontinued albuterol (Ventolin HFA) 108 (90 Base) MCG/ACT inhaler INHALE 2 PUFFS EVERY FOUR HOURS NEEDED 18 g 1 09/13/20 24 025 Discontinued(Re order (will not trigger notification to Pharmacy)) SUMAtriptan (Imitrex) 50 MG tablet TAKE 1 TABLET (50 MG) BY MOUTH 1 (ONE) TIME IF NEEDED FOR MIGRAINE. 9 tablet 2 10/26/20 24 025 Discontinued Active Problems Problem Noted Date [...] after the ultrasound and possible referral to [facility]os lead depending on results (Note: IUD removal is [...] Encounters Date Type Department Care Team Description 01/28/2025 Population Health Risk Score [facility] (C3) Department [address] [place] [phone] Provider, Population Health Generic 01/14/2025 Refill [facility]EDS [address] [place] [address] Courtney Davila MD 01/14/2025 Orders Only GENERIC EXTERNAL DATA DEPARTMENT Provider, Generic External Data 01/11/2025 Refill [facility]S [address] [place] [address] Courtney Davila MD 12/14/2024 Refill [facility] [address] [place] [address] Courtney Davila MD 12/08/2024 Telephone [facility] MED [facility]EDS [address] [place] [address] Courtney Davila MD from Last 3 Months [...] Cervical Cancer Screening 10/11/2029 HPV/Cotest 10/11/2029 07/10/2022, 08/02/2022, 07/05/2021, Additional history exists Pap Smear 10/11/2029 [...] Procedure Name Priority Date/Time Associated Diagnosis Comments GROSS AND MICROSCOPIC LEVEL 3 Routine 01/14/2025 10:19 AM EST HCG, QL, URINE Routine 01/14/2025 8:45 AM EST PAP SMEAR Routine 10/11/2024 12:00 AM EST HEPATITIS C AB W/REFL TO HCV RNA, QN, PCR Routine 03/04/2024 1:51 PM EDT Encounter for health-related screening HIV 1/2 ANTIGEN/ANTIBODY, FOURTH GENERATION W/RFL Routine 03/04/2024 1:51 PM EDT Encounter for health-related screening [facility] HISTORICAL HPV E6/E7 RFLX ROBERT 16 18/45 Routine 07/10/2022 11:46 AM EDT from Last 3 Months or Most Recently Relevant to Health Maintenance Results * Gross and Microscopic Level 3 (01/14/2025 10:19 AM EST) 01/14/2025 10:1 9 AM EST 01/14/2025 11:16 AM EST [facility] - 01/17/2025 12:57 PM EST ----- ------- Name: Anavitate,Iris ? Age/Sex: 39/F ? : 1985 Unit#: [id number] ?? Attend Dr: Carlyle Alvarado MD ?Re01/14/25 ?Status: DEP SDC ? Location: HO.SSS ?Disch: ? ----- ------- SPEC : [id number] ? RECD: 01/14/25-1116 ? STATUS: ??SOUT ? REQ NUM: [id number] ? MAYI: 01/14/25-1019 ? SUBM DR: Carlyle Alvarado MD ? ENTERED: ??01/14/25 ?SP TYPE: Surgical ? OTHR DR: Courtney Davila MD ? ORDERED: ??Gross Micro L3, GO ? Diagnosis ?? Endometrium and portion of IUD, removal: ?- Small fragments of endometrial stroma with foreign body giant cell reaction. ?- Portion of IUD (gross diagnosis only). ?Clinical History Displacement of IUD ? Material Received ?? IUD ? Gross Description Received fresh labeled ?IUD? is a white plastic T-shaped intrauterine device measuring 3.5 cm in length. ??The cross arm of the T measures 3.0 cm in width. ??At the base of the T is attached metallic wire measuring 4.9 cm in length. ??There is adherent pink- white soft tissue at the base of the T which when removed from the specimen forms in aggregate measuring 0.6 x 0.4 x 0.1 cm which is wrapped in lens paper and entirely submitted for microscopic examination, multiple pieces in cassette A. ??([facility]) Copies To: ?? Courtney Davila MD ?? [address] ?? [place] [phone] ?? [phone] ?? Carlyle Alvarado MD ?? [facility] Women[facility] ?? [address] ?? [place] [address] ?? [phone] ----- ------- Signed (signature on file) Bryanna Peña MD 01/17/25 1257 ? ----- ------- ? END OF REPORT ? us Generic External Data Provider LAB CYTOLOGY ATIF BENNETT Final Result [facility] [address] [facility], [place] [address] [phone] * HCG, Qualitative, Urine (01/14/2025 8:45 AM EST) Urine NEGATIVE NEGATIVE [facility] Comment:This test was develo ped to detect early . Falsenegative results may occur after the 5th - 7th week ofpregnancy when using this test method. If clinicallyindicated, consider a serum hCG. 01/14/2025 8:45 AM EST 01/14/2025 8:54 AM EST us Generic External Data Provider LAB URINE ORDERAB LES Final Result [facility] [address] [place] [address] [phone] * Pap Smear (10/11/2024 12:00 AM EST) 10/11/2024 10/12/2024 9:5 0 AM EST Narrative [facility] - 10/19/2024 9:56 AM EST ----- ------- Name: Anavitate,Iris ? Age/Sex: 39/F ? : 1985 Unit#: [id number] ?? Attend Dr: Ericka Martinez CNM ?Re10/11/24 ?Status: DEP REF ? Location: HO.LAB ?Disch: ? ----- ------- SPEC : [id number] ?RECD: 10/12/242456 ? STATUS: ??SOUT ? REQ NUM: [id number] ? MAYI: 10/11/24-0000 ? SUBM DR: Ericka [...] To: ?? Ericka Martinez CNM ?? [facility] Women[facility] Services ?? [address] [facility] ?? [place] [phone] ?? [phone] ?? Courtney Davila MD ?? [address] [facility] ?? [place] [address] ?? [phone] ----- ------- Signed (signature on file) RUPINDER Cabello ([facility]) 10/19/24 0956 ? ----- ------- ? END OF REPORT ? us Generic External Data Provider LAB CYTOLOGY ADRIELVinny DONALD Final Result Performing Organization Address [facility] de Phone Number [facility] [address] [place] [phone] * Hepatitis C Antibody with Reflex to HCV, RNA, Quantitative, Real-Time PCR (03/04/2024 1:51 PM EDT) [facility] Hepatitis C Antibody Nonreactive Nonreactive [facility] Comment:Antibodies to HCV no t detected; does not exclude early acuteHCV infection. Blood Venous blood specimen / Unknown 03/04/2024 1:51 PM EDT 03/04/2024 2:18 PM EDT us Courtney Davila MD LAB BLOOD ORDERABLES Final Re sult Performing Organization Address [facility] Co de Phone Number [facility] [address] [place] [address] [phone] * HIV-1/2 Antigen and Antibodies, Fourth Generation, with Reflexes (03/04/2024 1:51 PM EDT) HIV AB/AG Nonreactive Nonreactive [facility] Comment:HIV-1 p24 Ag and/or HIV-1/HIV-2 Ab not detected.A test result that is nonreactive does not exclude thepossibility of exposure to or infection with HIV-1 and/orHIV-2. Nonreactive results in this assay for individualswith prior exposure to HIV-1 and/or HIV-2 may be due toantigen and antibody levels that are below the limit ofdetection of this assay.The [employer]ast[employer] HIV Ag/Ab Combo assay result andsupplemental assay results should be interpreted inconjunction with the patient's clinical presentation,history and other laboratory results. If the results areinconsistent with clinical evidence, additional testing issuggested to confirm the result. Blood Venous blood specimen / Unknown 03/04/2024 1:51 PM EDT 03/04/2024 2:18 PM EDT us Courtney Davila MD LAB BLOOD ORDERABLES Final Re sult [facility] [address] [place] [phone] * HPV E6/E7 RFLX ROBERT 16 18/45 (07/10/2022 11:46 AM EDT) HPV 16 RNA [facility] HPV 18/45 RNA [facility] HPV E6 E7 ADD [facility] HPV mRNA E6/E7 rflx Not Detected Not Detected [facility] Comment: Methodology: Viscera Washer-Mediated Amplification This assay detects E6/E7 viral messenger RNA (mRNA) from 14 high-risk HPV types (16,18,31,33,35,39,45,51,52,56,58,59,66,68). Cervical sources are required for HPV testing. If a vaginal source from a patient who has had a total hysterectomy with removal of cervix was submitted, please contact the testing laboratory for alternative testing options. For additional information, please refer to http://education.[employer]/faq/MZE176s2 (This link if provided for information/ educational purposes only.) THIS TEST WAS PERFORMED AT: [facility] [address] [place] [address],[address] [place], [place] ??[phone] MORA STARR MD 07/10/2022 11:4 6 AM EDT us Ericka S[facility]iFort [facility] HISTORICAL/NON ORDERABLE LABS Fi nal Result [facility] [address] from Last 3 Months or Most Recently Relevant to Health Maintenance [place] [place] [address] C3 Care Teams Machine Adjuster Helper Relationship Specialty Start Date End Date Courtney Davila MD [address] [place] [address] [phone] PCP - General Family Medicine 03/04/24 Yony Barbosa MD Psychiatrist Psychiatry 11/17/18
--- OUTSIDE RECORDS SUMMARY | 2025-02-04 12:23 | XMS_ITS | Encounter Summary ---
Author Organization [employer] Address 75 [facility] [address] [place] [address] Care Team Providers Care Kitchen Aide Name Role Phone Courtney Davila MD Primary Care Provider [phone] Reason for Visit * Reason Comments Med Refill Encounter Details Date Type Department Care Team ([facility] Contact Info) Description 01/11/2025 Refill [facility] MED & PEDS [address] [place] [address] Courtney Davila MD [address] [place] [address] Social History Tobacco Use Types Packs/Day Years [...] documented as of this encounter Care Teams Kitchen Aide Relationship Specialty Start Date End Date Courtney Davila MD [address] [place] [address] PCP - General Family Medicine 03/04/24 Yony Barbosa MD Psychiatrist Psychiatry 11/17/18 documented as of this encounter
--- OUTSIDE RECORDS SUMMARY | 2025-02-04 12:23 | XMS_ITS | Encounter Summary ---
Author Organization [employer] Address [address] [facility] 7t [place] [address] Care Team Providers Care Acrylic Fabricator Name Role Phone Courtney Davila MD Primary Care Provider [phone] Encounter Details Date Type Department Care Team ([facility] st Contact Info) Description 01/28/2025 Population Health Risk Score [facility] (C3) Department [address] [facility] [address] [place] [phone] Provider, Population Health Generic Social History Tobacco Use Types Packs/Day Years [...] documented as of this encounter Care Teams Acrylic Fabricator Relationship Specialty Start Date End Date Courtney Davila MD [address] [place] [phone] PCP - General Family Medicine 03/04/24 Yony Barbosa MD Psychiatrist Psychiatry 11/17/18 documented as of this encounter
--- OUTSIDE RECORDS SUMMARY | 2025-02-04 12:23 | XMS_ITS | Encounter Summary ---
Author Organization [employer] Address [address] [facility] 7 [place] [address] Care Team Providers Care Cabinetmaker Supervisor Name Role Phone Courtney Davila MD Primary Care Provider [phone] Reason for Visit * Reason Comments Med Refill Encounter Details Date Type Department Care Team ([facility] Contact Info) Description 01/14/2025 Refill [facility] MED & PEDS [address] [place] [address] Courtney Davila MD [address] [place] [address] Social History Tobacco Use Types Packs/Day Years [...] documented as of this encounter Care Teams Cabinetmaker Supervisor Relationship Specialty Start Date End Date Courtney Davila MD [address] [place] [address] PCP - General Family Medicine 03/04/24 Yony Barbosa MD Psychiatrist Psychiatry 11/17/18 documented as of this encounter
--- OUTSIDE RECORDS SUMMARY | 2025-02-04 12:23 | XMS_ITS | Encounter Summary ---
Author Organization [employer] Address [address] [facility] 7[address] [place] [address] Care Team Providers Care Air Chipper Name Role Phone Courtney Davila MD Primary Care Provider [phone] Encounter Details Date Type Department Care Team (Late st Contact Info) Description 01/14/2025 Orders Only GENERIC EXTERNAL DATA DEPARTMENT Provider, Generic External Data Social History Tobacco Use Types Packs/Day Years [...] on file documented as of this encounter Procedures Procedure Name Priority Date/Time Associated Diagnosis Comments GROSS AND MICROSCOPIC LEVEL 3 Routine 01/14/2025 10:19 AM EST HCG, QL, URINE Routine 01/14/2025 8:45 AM EST documented in this encounter Results * Gross and Microscopic Level 3 (01/14/2025 10:19 AM EST) 01/14/2025 10:1 9 AM EST 01/14/2025 11:16 AM EST Narrative [facility] - 01/17/2025 12:57 PM EST ----- ------- Name: Anavitate,Iris ? Age/Sex: 39/F ? : 1985 Unit#: [id number] ?? Attend Dr: Carlyle Alvarado MD ?Re01/14/25 ?Status: DEP SDC ? Location: HO.SSS ?Disch: ? ----- ------- SPEC : [id number] ? RECD: 01/14/251116 ? STATUS: ??SOUT ? REQ NUM: [id number] ? MAYI: 01/14/25-1019 ? SUBM DR: Carlyle Alvarado MD ? ENTERED: ??01/14/251 ?SP TYPE: Surgical ? OTHR DR: Courtney [...] microscopic examination, multiple pieces in cassette A. ??([facility]) Copies To: ?? Courtney Davila MD ?? [address] [facility] ?? [place] [address] ?? [phone] ?? Carlyle Alvarado MD ?? [facility] ?? [address] ?? [place] [address] ?? [phone] ----- ------- Signed (signature on file) Bryanna Peña MD 01/17/25 1257 ? ----- ------- ? END OF REPORT ? us Generic External Data Provider LAB CYTOLOGY ATIF BENNETT Final Result [facility] [address] [place] [address] [phone] * HCG, Qualitative, Urine (01/14/2025 8:45 AM EST) Urine NEGATIVE NEGATIVE [facility] Comment:This test was develo ped to detect early . Falsenegative results may occur after the 5th - 7th week ofpregnancy when using this test method. If clinicallyindicated, consider a serum hCG. 01/14/2025 8:45 AM EST 01/14/2025 8:54 AM EST us Generic External Data Provider LAB URINE ORDERAB LES Final Result [facility] [address] [place] [address] [phone] documented in this encounter Visit Diagnoses Not on filedocumented in this encounter Additional Health Concerns Assessment Noted Time PHQ-9 Depression Total Score: 12 024 9:22 AM EDT documented as of this encounter Care Teams Air Chipper Relationship Specialty Start Date End Date Courtney Davila MD [address] [place] [phone] PCP - General Family Medicine 03/04/24 Yony Barbosa MD Psychiatrist Psychiatry 11/17/18 documented as of this encounter
--- OUTSIDE RECORDS SUMMARY | 2025-02-04 12:23 | XMS_ITS | Encounter Summary ---
Author Organization [employer] Address [address] [facility] 7 [place] [address] Care Team Providers Care Online Merchandising Coordinator Name Role Phone Courtney Davila MD Primary Care Provider [phone] Reason for Visit * Reason Comments Med Refill Encounter Details Date Type Department Care Team ([facility] st Contact Info) Description 08/17/2024 Refill [facility] MED & PEDS [address] [place] [address] Kristy Stevens MD [address] [place] [address] Social History Tobacco Use Types Packs/Day Years [...] documented as of this encounter Care Teams Online Merchandising Coordinator Relationship Specialty Start Date End Date Courtney Davila MD [address] [place] [address] PCP - General Family Medicine 03/04/24 Yony Barbosa MD Psychiatrist Psychiatry 11/17/18 documented as of this encounter
--- OUTSIDE RECORDS SUMMARY | 2025-02-04 12:23 | XMS_ITS | Encounter Summary ---
Author Organization [employer] Address [address] [facility] 7 [place] [address] Care Team Providers Care Finish Mill Operator Name Role Phone Courtney Davlia MD Primary Care Provider [phone] Reason for Visit * Reason Comments Med Refill Encounter Details Date Type Department Care Team ([facility] st Contact Info) Description 07/21/2024 Refill [facility] MED & PEDS [address] [place] [address] Kristy Stevens MD [address] [place] [address] Social History Tobacco Use Types Packs/Day Years [...] documented as of this encounter Care Teams Finish Mill Operator Relationship Specialty Start Date End Date Courtney Davila MD [address] [place] [address] PCP - General Family Medicine 03/04/24 Yony Barbosa MD Psychiatrist Psychiatry 11/17/18 documented as of this encounter
== END 2025-02-04 10:42 | disposition home or self-care (01) ==
LOC: HO.HWS 10:20
PROVIDERS: PCP Family Medicine; Visit Provider Obstetrics & Gynecology
DX: T83.32XA Displacement of intrauterine contraceptive device, initial encounter (principal)
CPT/HCPCS: 99213

== ENCOUNTER → 2025-02-04 10:20 | Outpatient (BNVA) | payer MEDICAID, SELFPAY | PROVIDERS: PCP Family Medicine; Visit Provider Obstetrics & Gynecology ==

== ENCOUNTER 2025-06-21 10:20 | Emergency (ER) | payer MEDICAID, SELFPAY ==
--- NOTE | ~2025-06-21 | XR_ITS ---
EXAMINATION: XR HIP 1 VIEW RIGHT WITH PELVIS HISTORY: pain COMPARISON: There are no prior studies available for comparison. FINDINGS: A single AP view of the pelvis and two views of the right hip are submitted. Osseous mineralization is normal. There is no fracture or dislocation. There is mild joint space narrowing. The soft tissues are unremarkable. XR/XR hip RT w [id number] IMPRESSION: Mild joint space narrowing. Electronically signed by: Frank Cervantes MD 06/21/2025 11:43 AM EDT
[2025-06-21 10:37] VITALS: BP 123/58; PULSE 86; RESP 16; TEMP 37.1; O2SAT 99; BMI 31.6
--- NOTE | 2025-06-21 12:43 | ED.EXTPRO ---
HPI - Extremity Problem General Chief complaint: Back Pain/Injury Stated complaint: Hip pain radiating to back & leg Time Seen by Provider: 06/21/25 12:51 Source: patient, family, RN notes reviewed and old records reviewed Mode of arrival: ambulatory Limitations: no limitations History of Present Illness ED Provider: Matheus Uriostegui PA-C HPI Narrative: 40-year-old female presents to the ER for evaluation of acute on chronic right lower back pain, right hip pain that radiates down the front of her leg. She states for last 3 or 4 days the pain has been getting worse. No recent injuries or trauma. She states the pain waxes and wanes for the last several months. she has been on flexeril, prednisone and ibuprofen in the past. she does not know what works best because it usually just comes and goes. she reports pain with ambulation and movement. no bowel/bladder issues. no fevers. no hx ivda. has PCP appointment coming up this week. MD Complaint: extremity pain and joint pain Onset (ago): day(s) Pain Consistency: constant Location: right Severity scale (1-10): 9 Quality: stabbing and aching Radiation: distal and other (back) Relieving factors: rest Exacerbating factors: range of motion, weight bearing, walking and palpation Associated symptoms: denies other symptoms Related Data Home Medications ?Medication ?Instructions ?Recorded ?Confirmed citalopram 10 mg tablet (Celexa) 10 mg PO DAILY 07/10/22 10/11/24 albuterol sulfate 90 mcg/actuation 2 puff inhalation QID 10/06/23 10/11/24 aerosol inhaler lamotrigine 50 mg tablet,extended 50 mg PO DAILY 10/06/23 10/11/24 release 24 hr lorazepam 0.5 mg tablet (Ativan) 0.5 mg PO DAILY PRN 12/29/24 Previous Rx's ?Medication ?Instructions ?Recorded ondansetron 4 mg disintegrating 4 mg PO Q6-8H PRN nausea and 08/31/24 tablet vomiting #14 tabs cyclobenzaprine 10 mg tablet 10 mg PO TID PRN muscle spasm #14 06/21/25 tabs lidocaine 5 % topical patch 1 patch topical DAILY #15 ea 06/21/25 prednisone 10 mg tablets in a dose See Taper PO DAILY #30 ea 06/21/25 pack Allergies Allergy/AdvReac Type Severity Reaction Status Date / Time No Known Allergies Allergy Verified 06/21/25 10:37 Review of Systems Review of Systems: Yes all other systems are reviewed and are negative [facility] Past Medical History Medical History Bipolar 1 disorder Depression Anxiety Umbilical hernia Lipoma of abdominal wall delivery delivered Asthma Surgical History History of loop electrical excision procedure (LEEP) Hx of section Family History Family History Paternal Grandmother Breast CA Social History Social History Are you a primary child day care center worker to a significant other at home: No Do you presently have visiting nurse or other home services: No Alcohol intake: unknown Patient Tobacco Use Status: Never used Tobacco Second Hand Smoke Exposure: No Substance Use Type: Marijuana Advance Directives: No Advance Directives Information Provided: Yes Current occupational status: disabled Physical Exam Vital Signs: Vital Signs: Last Vital Signs Temp 98.8 F 06/21/25 10:37 Pulse 86 06/21/25 10:37 Resp 16 06/21/25 10:37 BP 123/58 L 06/21/25 10:37 Pulse Ox 99 06/21/25 10:37 O2 Del Method Room Air 06/21/25 10:37 BMI result Body Mass Index 31.6 Appearance: Alert. Oriented X3. No acute distress. HEENT: normal inspection CVS: Normal heart rate and rhythm. Respiratory: No respiratory distress. Skin: Skin warm and dry. Normal skin color. Normal skin turgor. No rashes. Back: soft tissue tenderness of the right lower lumbar area and right lateral hip. Extremities: normal inspection of the right lower extremity. sitting in wheelchair with right hip and knee flexed. nontender right anterior hip. Neuro: Oriented X 3. No motor deficit. No sensory deficit. steady gait Medical Decision Making Medical Decision Making MDM Narrative: 40 yo female presenting to the ER for evaluation of right hip pain for the last several months. on exam pain seems to more be coming from her lumbar area and radiating to the hip and leg. no red flag symptoms of low back pain. no trauma or IVDA. her hip xray is unremarkable she has been taking large amounts of ibuprofen with minimal relief. counseled on this will start prednisone taper and flexeril. she will see her PCP in a few days and will ask about PT and additional imaging that may be warranted given chronicity. stable for d/c home with outpatinet follow up Differential Diagnosis Differential Diagnoses: The differential diagnosis associated with the presentation includes bursitis, lumbar radiculopathy, sciatica, avascular necrosis, muscle strain, inflammatory arthritis, nerve root compression, radiculopathy, plexopathy, degenerative disc disease, disc herniation, spinal stenosis, sacroiliac joint dysfunction, facet joint injury, and less likely infection?like abscess or diskitis Independent Interpretation I performed an independent interpretation of an: Plain X-Ray Interpretation: no visible fx Radiology Impression Discussion of test interpretation with radiology: I have reviewed the radiologist's reading. Independent Historian Clinical information obtained from an independent historian. History obtained from or confirmed by: Friend External Record Review External record reviewed: Outpatient record, Prior outpatient labs and Prior outpatient radiology Tests considered The following testing was considered but not selected: xr lumbar spine considered, no trauma Prescription Management I considered prescription management with: Pain Medication Chronic Conditions Patient?s care impacted by: Other (obesity ) Critical Care Time Critical Care Time Critical Care Time: No Discharge Plan Discharge Clinical Impression: Lumbar radiculopathy Patient Disposition: Home, Self-Care Instructions: Lumbar Radiculopathy (ED), Lower Back Exercises (ED) Additional Instructions: take the prescribed prednisone taper as directed take tylenol 1000 mg every 6-8 hours ice or heat the area take the muscle relaxer as needed for muscle spasm and pain see the lower back exercises and do them 2-3x per day follow up with your PCP as soon as possible If you develop new or worsening symptoms call 911 or come back to the ER for further evaluation. Prescriptions: New prednisone 10 mg tablets,dose pack See Taper PO DAILY Qty: 30 0RF Taper: Prednisone 40 mg daily for 3 Days and 0 Hour 30 mg daily for 3 Days and 0 Hour 20 mg daily for 3 Days and 0 Hour 10 mg daily for 3 Days and 0 Hour Rx Instructions: 40 mg Daily x3 days, 30 mg daily x3 days, 20 mg daily x3 days, 10 mg daily x3 days cyclobenzaprine 10 mg tablet 10 mg PO TID PRN (Reason: muscle spasm) Qty: 14 0RF lidocaine 5 % adhesive patch,medicated 1 patch topical DAILY Qty: 15 0RF Rx Instructions: leave on most painful area for up to 12 hrs No Action ondansetron 4 mg tablet,disintegrating 4 mg PO Q6-8H PRN (Reason: nausea and vomiting) Qty: 14 0RF citalopram [Celexa] 10 mg tablet 10 mg PO DAILY lamotrigine 50 mg tablet extended release 24hr 50 mg PO DAILY albuterol sulfate 90 mcg/actuation HFA aerosol inhaler 2 puff inhalation QID lorazepam [Ativan] 0.5 mg tablet 0.5 mg PO DAILY PRN Referrals: Juan Daniel Garcia MD, PhD [Physician, Neuro Spine] Courtney Davila MD [Primary Care Provider, Medical] Discharge Date/Time: 06/21/25 12:57 Print Language: Belarusian
--- OUTSIDE RECORDS SUMMARY | 2025-06-21 13:28 | XMS_ITS | Clinical Summary ---
Author Organization [facility] Address [address] [place] [address] Phone Care Team Providers Care Track Mechanic Name Role Phone Courtney Davila MD Primary Care Provider [phone] Allergies No known active allergies Medications No known medications Active Problems No known active problems Social History Tobacco Use Types Packs/Day Years Used Date Smoking Tobacco: Never Assessed Comments Unknown Sex and Gender Information Value Date Recorded Sex Assigned at Female 02/22/2025 3:25 PM EDT Legal Sex Female 1:14 PM EDT Gender Identity Female 02/22/2025 3:25 PM EDT Sexual Orientation Straight 02/22/2025 3: 25 PM EDT Obstetrics History Last Filed Vital Signs Vital Sign Reading Time Taken Comments Blood Pressure 121/90 02/22/2025 1:19 PM EDT Pulse 93 02/22/2025 1:19 PM EDT Temperature 36.7 C (98.1 F) 02/22/2025 1:19 PM EDT Respiratory Rate 20 02/22/2025 1:19 PM EDT Oxygen Saturation 98% 02/22/2025 1:19 PM EDT Inhaled Oxygen Concentration - - Weight 71.7 kg (158 lb) 02/22/2025 1:19 PM EDT Height 160 cm (5' 3 ) 02/22/2025 1:19 PM EDT Body Mass Index 27.99 02/22/2025 1:19 PM EDT Plan of Treatment Health Maintenance Due Date Last Done Comments Pneumococcal Vaccine: Pediatrics (0 to 5 Years) and At-Risk Patients (6 to 49 Years) (1 of 2 - PCV) 2005 COVID-19 Vaccine ( season) 2024 Depression Screening 11/17/2024 Social Influencers of Health Screening 02/22/2025 Influenza Vaccine (#1) 2025 4, 01/07/2019, 12/23/2016, Additional history exists DTaP,Tdap,and Td Vaccines (9 - Td or Tdap) 12/23/2026 12/23/2016, 05/03/2012, 07/24/1999, Additional history exists Cervical Cancer Screening: Pap Smear 10/11/2027 10/11/2024 HIB Vaccines Completed 02/01/1988 IPV Vaccines Completed 03/21/1988, 01/15, 1986, Additional history exists MMR Vaccines Completed 03/10/1991, 10/11/1987 Varicella Vaccines Aged Out 07/24/1999 No longer eligible based on patient's age to complete this topic Hepatitis B Vaccines Completed 01/14/2017, 12/17/2001, 08/06/2001, Additional history exists Hepatitis A Vaccines Aged Out 07/31/2017, 01/14/20 17 No longer eligible based on patient's age to complete this topic HIV Screening Completed 03/04/2024 Hepatitis C Screening Completed 03/04/2024 HPV Vaccines Aged Out No longer eligi ble based on patient's age to complete this topic Meningococcal ACWY Vaccine Aged Out N o longer eligible based on patient's age to complete this topic Meningococcal B Vaccine Aged Out No l onger eligible based on patient's age to complete this topic RSV Immunization Patients Under 20 months Aged Out No longer eligible based on patient's age to complete this topic Insurance MEDICAID - [place] Care Teams Track Mechanic Relationship Specialty Start Date End Date Courtney Davila MD [address] [place] [id number] PCP - General Family Medicine 02/22/25
--- OUTSIDE RECORDS SUMMARY | 2025-06-21 13:28 | XMS_ITS | Encounter Summary ---
Author Organization [employer] Address [address] [facility] [address] [place] [address] Care Team Providers Care Front Desk Host Name Role Phone Brittany Ruiz [facility] Primary Care Provider [phone] Courtney Davila MD Primary Care Provider [phone] Reason for Visit * Reason Onset Date Comments Nurse Triage 06/19/2023 Encounter Details Date Type Department Care Team (Late st Contact Info) Description 06/19/2023 Telephone [facility] MEDICINE [address] [place], [place] [phone] [facility] [address] [place], [place] [phone] Nurse Triage Social History Tobacco Use Types [...] water gargle. Advised Pt to come to [facility] first thing tomorrow morning. [facility] closes at 4pm today and [...] accepted this outcome Please contact pt at [phone] documented in this encounter Plan of Treatment Upcoming Encounters Date Type Department Care Team (Late st Contact Info) Description 07/11/2025 11:00 AM EDT Office Visit [facility] & PEDS [address] [place] [address] Courtney Davila MD [address] [place] [address] documented as of this encounter Visit Diagnoses Not on filedocumented in this encounter Care Teams Front Desk Host Relationship Specialty Start Date End Date Brittany Ruiz FNP [address] [place] [address] PCP - General Family Medicine 04/29/22 03/03/24 Courtney Davila MD [address] [place] [address] PCP - General Family Medicine 03/04/24 Yony Barbosa MD Psychiatrist Psychiatry 11/17/18 documented as of this encounter
== END 2025-06-21 12:57 | disposition home or self-care (01) ==
LOC: HO.ED 12:53
PROVIDERS: Emergency Provider Emergency Medicine; PCP Family Medicine
DX: M54.16 Radiculopathy, lumbar region (principal); M25.551 Pain in right hip
CPT/HCPCS: 73502; 99281; 99283

== ENCOUNTER → 2025-06-21 11:15 | Outpatient (BNV) | payer MEDICAID, SELFPAY | PROVIDERS: PCP Family Medicine; Visit Provider Radiology Diagnostic Radiology | DX: M25.551 Pain in right hip (principal) | CPT/HCPCS: 73502 ==

== ENCOUNTER 2025-07-29 11:13 | Outpatient (AMB) | payer MEDICAID, SELFPAY ==
--- OUTSIDE RECORDS SUMMARY | 2025-07-23 18:26 | XMS_ITS | Encounter Summary ---
Author Organization [facility] Address [address] [place] [address] Care Team Providers Care Manager Presentation Name Role Phone Courtney Davila MD Primary Care Provider Reason for Visit * Reason Comments Chest Pain Right sided chest pa in worse with breathing Encounter Details Date Type Department Care Team (Late st Contact Info) Description 07/23/2025 6:26 PM EDT - 07/23/2025 10:17 PM EDT Emergency [facility] Emergency [address] [place] [id number] Riky Vaz MD [address] [place] [address] Elevated d-dimer (Primary Dx); Exacerbation of asthma, unspecified asthma severity, unspecified whether persistent; Pleuritic chest pain Discharge Disposition: Home or Self Care Social History Tobacco Use Types Packs/Day Years Used Date Smoking Tobacco: Unknown Tobacco Cessation:Counseling Given: Not Answered Comments Unknown Sex and Gender Information Value Date Recorded Sex Assigned at Female 02/22/2025 3:25 PM EDT Legal Sex Female 1:14 PM EDT Gender Identity Female 02/22/2025 3:25 PM EDT Sexual Orientation Straight 02/22/2025 3: 25 PM EDT Travel History Travel Start Travel End [place] 06/22/2025 07/23/2025 documented as of this encounter Last Filed Vital Signs Vital Sign Reading Time Taken Comments Blood Pressure 117/83 07/23/2025 10:04 PM EDT Pulse 88 07/23/2025 10:04 PM EDT Temperature 36.9 C (98.4 F) 07/23/2025 10:04 PM EDT Respiratory Rate 16 07/23/2025 10:04 PM EDT Oxygen Saturation 98% 07/23/2025 10:04 PM EDT Inhaled Oxygen Concentration - - Weight 74.8 kg (165 lb) 07/23/2025 2:24 PM EDT Height 160 cm (5' 3 ) 07/23/2025 2:24 PM EDT Body Mass Index 29.23 07/23/2025 2:24 PM EDT documented in this encounter Discharge Instructions * Discharge Instructions* Riky Vaz MD - 07/23/2025 10:[address] scan did not show evidence of blood clots or pneumonia. Your asthma exacerbation you will take prednisone daily for the next 5 days. You should use your inhaler every 4 hours for the next 24 hours and then transition to as needed from there. You can take Tylenol 1000 mg and ibuprofen 600 mg every 6 hours as needed for your pain. Follow-up closely with your primary care doctor. Return with any new or worsening symptoms. * Attachments The following attachments cannot be sent through Care Everywhere. * Chest Pain: Musculoskeletal ([place] African) * Asthma: Asthma Control ([place] African) documented in this encounter Medications at Time of Discharge predniSONE (DELTASONE) 50 mg tablet Take 1 tablet (50 mg total) by mouth 1 (one) time each day for 5 days. 5 each 07/23/2025 07/28/2025 documented as of this encounter Ordered Prescriptions Prescription Sig Dispense Quantity Refills Last Filled Start Date End Date predniSONE (DELTASONE) 50 mg tablet Take 1 tablet (50 mg total) by mouth 1 (one) time each day for 5 days. 5 each 07/23/2025 07/28/2025 documented in this encounter Discharge Disposition Disposition Code Departure Means Destination Comment s Home or Self [facility] documented in this encounter Progress Notes * Gerry Diallo RN - 07/23/2025 2:22 PM EDT Pt presents for right sided cp with shortness of breath x3-4 days and getting worse. She states pain to midback also, unknown fevers. Pt has slight work of breathing. Ambulatory, a/ox3 * Riky Vaz MD - 07/23/2025 2:16 PM EDT HPI Chief Complaint Patient presents with Chest Pain Right sided chest pain worse with breathing Patient is a 40-year-old female with a history of asthma who is presenting to the ER with chest pain. Patient states about 4 days ago she began developing pleuritic type bilateral chest pain that radiates to both sides of her back. She thought she may be getting sick but is progressively worsened. She does note cough and congestion that is not productive.. She does report some dyspnea due to the pain. No fevers, nausea/vomiting. She has had some episodes of watery diarrhea. No known sick contacts but states she recently traveled to [place]. Boy Coma Scale Score: 15 Patient History History reviewed. No pertinent past medical history. History reviewed. No pertinent surgical history. No family history on file. Social History Tobacco Use Smoking status: Unknown Smokeless tobacco: Not on file Substance Use Topics Alcohol use: Not on file Drug use: Not on file Review of Systems Review of Systems Constitutional: Negative for chills and fever. HENT: Positive for congestion. Negative for sore throat. Respiratory: Positive for cough and shortness of breath. Cardiovascular: Positive for chest pain. Gastrointestinal: Positive for diarrhea. Negative for abdominal pain, nausea and vomiting. Musculoskeletal: Positive for back pain. Negative for neck pain. Skin: Negative for color change and pallor. Neurological: Negative for dizziness, syncope and light-headedness. Physical Exam ED Triage Vitals Temp Heart Rate Resp BP 07/23/25 1424 07/23/25 1424 07/23/25 1424 07/23/25 1424 36.7 ??C (98.1 ??F) 103 24 (!) 120/93 SpO2 Temp Source Heart Rate Source Patient Position 07/23/25 1424 07/23/25 1904 07/23/25 1904 07/23/25 190 100 % Oral Monitor Sitting BP Location FiO2 (%) 07/23/25 190 -- Left arm Physical Exam Vitals and nursing note reviewed. Constitutional: General: She is not in acute distress. Appearance: She is not ill-appearing, toxic-appearing or diaphoretic. HENT: Head: Normocephalic and atraumatic. Right Ear: External ear normal. Left Ear: External ear normal. Nose: Nose normal. No rhinorrhea. Mouth/Throat: Mouth: Mucous membranes are moist. Eyes: General: Scleral icterus present. Extraocular Movements: Extraocular movements intact. Conjunctiva/sclera: Conjunctivae normal. Pupils: Pupils are equal, round, and reactive to light. Neck: Vascular: No JVD. Cardiovascular: Rate and Rhythm: Regular rhythm. Tachycardia present. Pulses: Normal pulses. Comments: Well-perfused Pulmonary: Effort: Pulmonary effort is normal. No respiratory distress. Breath sounds: Decreased air movement present. No stridor. Wheezing present. Chest: Chest wall: Tenderness present. No deformity. Abdominal: General: Abdomen is flat. There is no distension. Tenderness: There is no abdominal tenderness. There is no guarding or rebound. Musculoskeletal: General: No deformity. Normal range of motion. Cervical back: Normal range of motion and neck supple. No rigidity. Right lower leg: No tenderness. No edema. Left lower leg: No tenderness. No edema. Skin: General: Skin is dry. Capillary Refill: Capillary refill takes less than 2 seconds. Coloration: Skin is not cyanotic, jaundiced or pale. Neurological: General: No focal deficit present. Mental Status: She is alert and oriented to person, place, and time. Mental status is at baseline. Coordination: Coordination normal. Psychiatric: Mood and Affect: Mood normal. Behavior: Behavior normal. Thought Content: Thought content normal. Judgment: Judgment normal. ED Course & MDM ED Course as of 07/23/25 2219 Sat Jul 23, [id number] ECG 12 lead EKG showing sinus tachycardia at 106 bpm, nonspecific ST-T wave changes, no STEMI, normal axis and intervals [CL] 191 ECG 12 lead EKG showed normal sinus rhythm at 83 bpm, nonspecific T wave flattening, no STEMI, left axis deviation, normal intervals [CL] 191 XR Chest 2 Views FINDINGS: Right diaphragmatic eventration. The heart, mediastinum, lungs, pleural spaces, and bony thorax arenormal. [CL] 191 High Sensitivity Troponin I: <3 [CL] 191 B Type Natriuretic Peptide: 19 [CL] 191 CBC and differential(!) Unremarkable [CL] 191 Creatinine: 0.60 [CL] 192 D-Dimer, Quant (D-DU)(!): [address] angio of the chest to assess for PE [CL] 1953 High Sensitivity Troponin I: <3 Again negative and not detectable [CL] 2047 HCG, Ur POC: Negative [CL] 2201 CT Angio Chest wo and/or w Contrast IMPRESSION: No evidence of PE. [CL] 2207 Patient feels much improved at this time. Her wheezing is resolved on reassessment after DuoNeb treatments. Her workup was notable for negative CT angio and negative troponins x 2. I suspect pleuritic chest pain was related to a viral upper respiratory infection and her asthma exacerbation. wewill treat asthma exacerbation with a course of prednisone. Patient states she does not need any refills on inhalers or nebulizers. Close PCP follow-up advised. Strict return precautions given. [CL] ED Course User Index [CL] Riky Vaz MD Clinical Impressions as of 07/23/252218 Elevated d-dimer Exacerbation of asthma, unspecified asthma severity, unspecified whether persistent Pleuritic chest pain Medical Decision Making Presented to the ER with 4 days of pleuritic type bilateral chest pain with associated dyspnea, cough, congestion. On exam she was mildly tachycardic on arrival. She is also mildly tachypneic but without accessory muscle use and otherwise maintaining saturations in the high 90s to 100%. She does have poor air movement and wheezing bilaterally that appears consistent with a asthma exacerbation forwhich we will treat with DuoNebs and steroids. Given her pleuritic chest pain will obtain workup including EKG and troponin to assess for ACS, D-dimer for PE evaluation and a chest x-ray to assess for pneumonia. Will also treat her pain with Tylenol and Toradol. Riky Vaz MD 07/23/252211 Riky Vaz MD 07/23/252218 documented in this encounter Plan of Treatment Not on file documented as of this encounter Procedures Procedure Name Priority Date/Time Associated Diagnosis Comments ECG ANNOTATED 07/25/2025 ECG ANNOTATED 07/25/2025 CT ANGIO CHEST WO AND/OR W CONTRAST STAT 07/23/2025 8:55 PM EDT Elevated d-dimer POC , URINE DIAGNOSTIC STAT 07/23/2025 8:47 PM EDT TROPONIN I HIGH SENSITIVITY Timed 07/23/2025 6:56 PM EDT D-DIMER STAT 07/23/2025 6:56 PM EDT ECG 12-LEAD STAT 07/23/2025 6:37 PM EDT TROPONIN I HIGH SENSITIVITY Timed 07/23/2025 4:17 PM EDT CBC WITH AUTO DIFFERENTIAL STAT 07/23/2025 4:17 PM EDT CBC AND DIFFERENTIAL STAT 07/23/2025 4:17 PM EDT B-TYPE NATRIURETIC PEPTIDE STAT 07/23/2025 4:17 PM EDT MAGNESIUM STAT 07/23/2025 4:17 PM EDT LIPASE STAT 07/23/2025 4:17 PM EDT COMPREHENSIVE METABOLIC PANEL STAT 07/23/2025 4:17 PM EDT XR CHEST 2 VIEWS STAT 07/23/2025 2:33 PM EDT ECG 12-LEAD STAT 07/23/2025 2:21 PM EDT documented in this encounter Results * ECG-Annotated (07/25/2025) us Provider Onbase MD ECG ORDERABLES Final Result * ECG-Annotated (07/25/2025) us Provider Onbase MD ECG ORDERABLES Final Result * CT Angio Chest wo and/or w Contrast (07/23/2025 8:55 PM EDT) Anatomical Region Laterality Modality Body Computed Tomogra phy 07/23/2025 10:0 0 PM EDT Impressions 07/23/2025 10:00 PM EDT No evidence of PE. This document has been electronically signed by: Tito Felix MD on 07/23/2025 22:00:59 Narrative 07/23/2025 10:00 PM EDT INDICATION: PE suspected, low/intermediate prob, positive D-dimer CT angiography chest with contrast. 3D Postprocessing. Comparison: None provided Findings: The heart size is normal. RV/LV ratio is normal. Unremarkable thoracic aorta and great vessels. No aneurysm. No pulmonary artery filling defects. The visualized thyroid and mediastinum are unremarkable. No consolidation or effusion. The upper abdomen is unremarkable. The bones are intact. Procedure Note Tito Felix MD - 07/23/2025 INDICATION: PE suspected, low/intermediate prob, positive D-dimer CT angiography chest with contrast. 3D Postprocessing. Comparison: None provided Findings: The heart size is normal. RV/LV ratio is normal. Unremarkable thoracic aorta and great vessels. No aneurysm. No pulmonary artery filling defects. The visualized thyroid and mediastinum are unremarkable. No consolidation or effusion. The upper abdomen is unremarkable. The bones are intact. IMPRESSION: No evidence of PE. This document has been electronically signed by: Tito Felix MD on 07/23/2025 22:00:59 Riky Vaz MD IMG CT PROCEDURES Final Resu lt * POC , urine manually resulted (07/23/2025 8:47 PM EDT) Pathologist [facility] HCG, Ur POC Negative Negative Urine Urine specimen obtained by clean catch procedure / Unknown 07/23/2025 8:47 PM EDT Riky Vaz MD POINT OF CARE TEST ENTER/REBEKAH T ORDERABLES Final Result * (ABNORMAL) D-Dimer (07/23/2025 6:56 PM EDT) Pathologist [facility] D-Dimer, Quant (D-DU) 319(H) <=230 ng/mL DDU LAB COAGULATION METHOD 07/23/2025 7:20 PM EDT [facility] Blood Venous blood specimen / Unknown Venipuncture / Unknown 07/23/2025 6:56 PM EDT 07/23/2025 7:07 PM EDT Narrative [facility] - 07/23/2025 7:20 PM EDT D-Dimer <230 ng/mL (D-Dimer units) is the threshold for exclusion of DVT/PE. D-Dimer may be elevated in: Critically ill, severely infected, trauma patients, DIC, acute CVA, acute [place], unstable angina, AF, old age, , and smoking. D-Dimer may be decreased with: Initiation of heparin therapy and oral anticoagulants. Riky Vaz MD LAB BLOOD ORDERABLES Final R esult Performing Organization Address [facility] Co de Phone Number [facility] [address] [place] [address], [place] [phone] * Troponin I high sensitivity (07/23/2025 6:56 PM EDT) [facility] High Sensitivity Troponin I <3 <=54 ng/L LAB CHEMISTRY METHOD 07/23/2025 7:51 PM EDT [facility] Blood Venous blood specimen / Unknown Venipuncture / Unknown 07/23/2025 6:56 PM EDT 07/23/2025 7:07 PM EDT Narrative [facility] - 07/23/2025 7:51 PM EDT High levels of biotin in samples may falsely decrease hsTroponin values. Use caution when interpreting hsTroponin results in patients taking biotin who exhibit renal impairment (eGFR <60) or in patients taking more than 20 mg/day of biotin. Riky Vaz MD LAB BLOOD ORDERABLES Final R esult Performing Organization Address [facility]/ZIP Co de Phone Number [facility] [address] [place] [address], [place] [phone] * ECG 12 lead (07/23/2025 6:37 PM EDT) [facility] Ventricular Rate ECG 83 BPM GEMUSE Atrial Rate 83 BPM GEMUSE P-R Interval 136 ms GEMUSE QRS Duration 84 ms GEMUSE Q-T Interval 312 ms GEMUSE QTc 366 ms GEMUSE P Wave Vermilion 42 degrees GEMUSE T Vermilion 17 degrees GEMUSE ECG Interpretation Normal sinus rhythm Nonspecific T wave abnormality Abnormal ECG When compared with ECG of 23-JUL-2025 14:21, (unconfirmed) No significant change was found Confirmed by DIDIER LOCKHART ([id number]) on 07/24/2025 7:17:59 AM GEMUSE 07/23/2025 6:37 PM EDT 07/24/2025 7:17 AM EDT us Jose Alfredo Dawn MD ECG ORDERABLES Final Resul t GEMUSE * (ABNORMAL) CBC auto differential (07/23/2025 4:17 PM EDT) [facility] WBC 10.7 4.8 - 10.8 K/mcL LAB HEMETOLOGY METHOD 07/23/2025 5:04 PM EDT [facility] RBC 4.50 3.80 - 4.80 M/mcL LAB HEMETOLOGY METHOD 07/23/2025 5:04 PM EDT [facility] Hemoglobin 12.6 11.5 - 16.0 g/dL LAB HEMETOLOGY METHOD 07/23/2025 5:04 PM EDT [facility] Hematocrit 39.0 35.0 - 47.0 % LAB HEMETOLOGY METHOD 07/23/2025 5:04 PM EDT [facility] MCV 86.7 79.0 - 98.0 FL LAB HEMETOLOGY METHOD 07/23/2025 5:04 PM EDT [facility] MCH 28.0 27.0 - 32.0 pcg LAB HEMETOLOGY METHOD 07/23/2025 5:04 PM EDT [facility] MCHC 32.3 32.0 - 37.0 g/dL LAB HEMETOLOGY METHOD 07/23/2025 5:04 PM [facility] RDW 12.6 11.0 - 15.0 % LAB HEMETOLOGY METHOD 07/23/2025 5:04 PM [facility] Platelets 245 130 - 400 K/mcL LAB HEMETOLOGY METHOD 07/23/2025 5:04 PM [facility] MPV 10.3 7.0 - 11.0 FL LAB HEMETOLOGY METHOD 07/23/2025 5:04 PM [facility] NRBC 0.0 <1.0 % LAB HEMETOLOGY METHOD 07/23/2025 5:04 PM [facility] NRBC Absolute 0.00 <0.10 K/mcL LAB HEMETOLOGY METHOD 07/23/2025 5:04 PM [facility] Neutrophils Relative 66.9 % LAB HEMETOLOGY METHOD 07/23/2025 5:04 PM [facility] Lymphocytes Relative 23.3 % LAB HEMETOLOGY METHOD 07/23/2025 5:04 PM [facility] Monocytes Relative 7.6 % LAB HEMETOLOGY METHOD 07/23/2025 5:04 PM [facility] Eosinophils Relative 0.9 % LAB HEMETOLOGY METHOD 07/23/2025 5:04 PM [facility] Basophils Relative 0.6 % LAB HEMETOLOGY METHOD 07/23/2025 5:04 PM [facility] Immature Granulocytes Relative 0.7 % LAB HEMETOLOGY METHOD 07/23/2025 5:04 PM [facility] Neutrophils Absolute 7.15(H) 1.50 - 7.00 K/mcL LAB HEMETOLOGY METHOD 07/23/2025 5:04 PM EDT [facility] Lymphocytes Absolute 2.49 1.00 - 5.00 K/mcL LAB HEMETOLOGY METHOD 07/23/2025 5:04 PM EDT [facility] Monocytes Absolute 0.81 0.20 - 1.00 K/mcL LAB HEMETOLOGY METHOD 07/23/2025 5:04 PM EDT [facility] Eosinophils Absolute 0.10 0.00 - 0.50 K/[facility] LAB HEMETOLOGY METHOD 07/23/2025 5:04 PM EDT [facility] Basophils Absolute 0.06 0.00 - 0.20 K/[facility] LAB HEMETOLOGY METHOD 07/23/2025 5:04 PM EDT [facility] Immature Granulocytes Absolute 0.07(H) 0.00 - 0.03 K/[facility] LAB HEMETOLOGY METHOD 07/23/2025 5:04 PM EDT [facility] Blood Venous blood specimen / Unknown Venipuncture / Unknown 07/23/2025 4:17 PM EDT 07/23/2025 4:53 PM EDT Rkiy Vaz MD LAB BLOOD ORDERABLES Final R esult [facility] [address] [place] [address], * B-type natriuretic peptide (07/23/2025 4:17 PM EDT) BNP 19 <=100 pcg/mL LAB CHEMISTRY METHOD 07/23/2025 5:32 PM EDT [facility] Blood Venous blood specimen / Unknown Venipuncture / Unknown 07/23/2025 4:17 PM EDT 07/23/2025 4:53 PM EDT Riky Vaz MD LAB BLOOD ORDERABLES Final R esult Performing Organization Address [facility] Co de Phone Number [facility] [address] [place] [address], [place] [phone] * Magnesium (07/23/2025 4:17 PM EDT) Pathologist [facility] Magnesium 2.0 1.9 - 2.6 mg/dL LAB CHEMISTRY METHOD 07/23/2025 5:24 PM EDT [facility] Blood Venous blood specimen / Unknown Venipuncture / Unknown 07/23/2025 4:17 PM EDT 07/23/2025 4:53 PM EDT Riky Vaz MD LAB BLOOD ORDERABLES Final R esult Performing Organization Address [facility] de Phone Number [facility] [address] [place] [address], [place] [phone] * Lipase (07/23/2025 4:17 PM EDT) [facility] Lipase 54 13 - 75 unit/L LAB CHEMISTRY METHOD 07/23/2025 5:24 PM EDT [facility] Blood Venous blood specimen / Unknown Venipuncture / Unknown 07/23/2025 4:17 PM EDT 07/23/2025 4:53 PM EDT Riky Vaz MD LAB BLOOD ORDERABLES Final R esult Performing Organization Address City/[facility]/ZIP Co de Phone Number [facility] [address] [place] [address], [place] [phone] * Comprehensive metabolic panel (07/23/2025 4:17 PM EDT) Pathologist [facility] Sodium 140 133 - 145 mmol/L LAB CHEMISTRY METHOD 07/23/2025 5:24 PM EDT [facility] Potassium 3.8 3.5 - 5.5 mmol/L LAB CHEMISTRY METHOD 07/23/2025 5:24 PM [facility] Chloride 109 96 - 110 mmol/L LAB CHEMISTRY METHOD 07/23/2025 5:24 PM [facility] CO2 25 21 - 32 mmol/L LAB CHEMISTRY METHOD 07/23/2025 5:24 PM [facility] Anion Gap 6 3 - 11 LAB CHEMISTRY METHOD 07/23/2025 5:24 PM [facility] Glucose 79 70 - 100 mg/dL LAB CHEMISTRY METHOD 07/23/2025 5:24 PM [facility] BUN 15 5 - 25 mg/dL LAB CHEMISTRY METHOD 07/23/2025 5:24 PM [facility] Creatinine 0.60 0.50 - 1.10 mg/dL LAB CHEMISTRY METHOD 07/23/2025 5:24 PM [facility] eGFR 117 >=60 mL/min/1. 73m2 LAB CHEMISTRY METHOD 07/23/2025 5:24 PM [facility] Comment:Calculation based on the Chronic Kidney Disease Epidemiology Collaboration (CKD-EPI) equation refit without adjustment for race. BUN/Creatinine Ratio 25.0 LAB CHEMISTRY METHOD 07/23/2025 5:24 PM [facility] Calcium 9.2 8.5 - 10.5 mg/dL LAB CHEMISTRY METHOD 07/23/2025 5:24 PM [facility] AST (SGOT) 13 10 - 42 unit/L LAB CHEMISTRY METHOD 07/23/2025 5:24 PM [facility] ALT (SGPT) 19 10 - 60 unit/L LAB CHEMISTRY METHOD 07/23/2025 5:24 PM [facility] Alkaline Phosphatase 59 42 - 121 unit/L LAB CHEMISTRY METHOD 07/23/2025 5:24 PM [facility] Total Protein 6.8 6.0 - 8.0 g/dL LAB CHEMISTRY METHOD 07/23/2025 5:24 PM EDT [facility] Albumin 3.8 3.2 - 5.0 g/dL LAB CHEMISTRY METHOD 07/23/2025 5:24 PM EDT [facility] Total Bilirubin 0.5 0.0 - 1.4 mg/dL LAB CHEMISTRY METHOD 07/23/2025 5:24 PM EDT [facility] Blood Venous blood specimen / Unknown Venipuncture / Unknown 07/23/2025 4:17 PM EDT 07/23/2025 4:53 PM EDT Riky Vaz MD LAB BLOOD ORDERABLES Final R esult Performing Organization Address [facility] Co de Phone Number [facility] [address] [place] [address], [place] [phone] * Troponin I high sensitivity (07/23/2025 4:17 PM EDT) [facility] High Sensitivity Troponin I <3 <=54 ng/L LAB CHEMISTRY METHOD 07/23/2025 5:29 PM EDT [facility] Blood Venous blood specimen / Unknown Venipuncture / Unknown 07/23/2025 4:17 PM EDT 07/23/2025 4:53 PM EDT Narrative [facility] - 07/23/2025 5:29 PM EDT High levels of biotin in samples may falsely decrease hsTroponin values. Use caution when interpreting hsTroponin results in patients taking biotin who exhibit renal impairment (eGFR <60) or in patients taking more than 20 mg/day of biotin. Riky Vaz MD LAB BLOOD ORDERABLES Final R esult Performing Organization Address [facility] Co de Phone Number [facility] [address] [place] [address], [place] [phone] * XR Chest 2 Views (07/23/2025 2:33 PM EDT) Anatomical Region Laterality Modality Body Radiographic Rosa ging 07/23/2025 2:43 PM EDT Impressions 07/23/2025 2:44 PM EDT No acute findings. -------- FINAL REPORT -------- Dictated By: Tito Diana Dictated Date: 07/23/2025 14:43 ET Assigned Physician: Tito Diana Reviewed and Electronically Signed By: Tito Diana Signed Date: 07/23/2025 14:44 ET Workstation ID: [id number] Transcribed By: Self Edit Transcribed Date: 07/23/2025 14:43 ET Narrative 07/23/2025 2:44 PM EDT PROCEDURE: PA and lateral radiographs of the chest. HISTORY: chest pain. COMPARISON: None. FINDINGS: Right diaphragmatic eventration. The heart, mediastinum, lungs, pleural spaces, and bony thorax are normal. Procedure Note Tito Diana MD - 07/23/2025 PROCEDURE: PA and lateral radiographs of the chest. HISTORY: chest pain. COMPARISON: None. FINDINGS: Right diaphragmatic eventration. The heart, mediastinum, lungs, pleuralspaces, and bony thorax are normal. IMPRESSION: No acute findings. -------- FINAL REPORT -------- Dictated By: Tito Diana Dictated Date: 07/23/2025 14:43 ET Assigned Physician: Tito Diana Reviewed and Electronically Signed By: Tito Diana Signed Date: 07/23/2025 14:44 ET Workstation ID: [id number] Transcribed By: Self Edit Transcribed Date: 07/23/2025 14:43 ET us Riky Vaz MD IMG XR PROCEDURES Final Resu lt * ECG 12 lead (07/23/2025 2:21 PM EDT) Ventricular Rate ECG 106 BPM GEMUSE Atrial Rate 106 BPM GEMUSE P-R Interval 136 ms GEMUSE QRS Duration 72 ms GEMUSE Q-T Interval 298 ms GEMUSE QTc 395 ms GEMUSE P Wave Vermilion 47 degrees GEMUSE R Vermilion 17 degrees GEMUSE T Vermilion 28 degrees GEMUSE ECG Interpretation Sinus tachycardia Otherwise normal ECG No previous ECGs available Confirmed by DIDIER LOCKHART ([id number]) on 07/24/2025 7:16:32 AM GEMUSE 07/23/2025 2:21 PM EDT 07/24/2025 7:16 AM EDT Riky Vaz MD ECG ORDERABLES Final Result GEMUSE documented in this encounter Visit Diagnoses Diagnosis Elevated d-dimer- Primary Exacerbation of asthma, unspecified asthma severity, unspecified whether persistent Pleuritic chest pain Painful respiration documented in this encounter Administered Medications Inactive Administered Medications - up to 3 most recent administrations Medication Order MAR Action Action Date Dose Rate Site acetaminophen (TYLENOL) tablet 1,000 mg 1,000 mg, oral, Once, On 07/23/25 at 1913, For 1 dose Given 07/23/2025 7:46 PM EDT 1,000 mg iopamidoL (ISOVUE-370) 370 mg iodine /mL (76 %) injection 90 mL 90 mL, intravenous, Once in imaging, Starting on 07/23/25 at 2049, For 1 dose Given 07/23/2025 8:53 PM EDT 90 mL ipratropium-albuteroL (DUONEB) 0.5-2.5 mg/3 mL nebulizer solution 3 mL 3 mL, nebulization, Every 15 min, First dose on 07/23/25 at 1913, For 2 doses Given 07/23/2025 7:49 PM EDT 3 mL ketorolac (TORADOL) injection 15 mg 15 mg, intravenous, Once, On 07/23/25 at 1913, For 1 dose Given 07/23/2025 7:40 PM EDT 15 mg methylPREDNISolone sodium succ (SOLU-Medrol) injection 125 mg 125 mg, intravenous, Once, On 07/23/25 at 1913, For 1 dose, Reconstitute each 125 mg vial with 2 mL sterile water for injection to a concentration of 62.5 mg/mL. Given 07/23/2025 7:43 PM EDT 125 mg sodium chloride 0.9 % flush 10 mL 10 mL, intravenous, Once, On 07/23/25 at 2051, For 1 dose Given 07/23/2025 8:53 PM EDT 10 mL documented in this encounter Active and Recently Administered Medications Times are shown in EDT. Scheduled Medication Order 07/21/2025 07/22/2025 07/23/2025 acetaminophen (TYLENOL) tablet 1,000 mg (COMPLETED) 1,000 mg, oral, Once, On 07/23/25 at 1912, For 1 dose 1945 (Given - Provid er: Elli Linda RN) iopamidoL (ISOVUE-370) 370 mg iodine /mL (76 %) injection 90 mL (COMPLETED) 90 mL, intravenous, Once in imaging, Starting on 07/23/25 at 2049, For 1 dose 2052 (Given - Provid er: Maggi Wilson) ipratropium-albuteroL (DUONEB) 0.5-2.5 mg/3 mL nebulizer solution 3 mL 3 mL, nebulization, Every 15 min, First dose on 07/23/25 at 1912, For 2 doses 1948 (Given - Provid er: Elli Linda RN)2019 (Not Given - Provider: Elli Linda RN - Reason: See Provider Order) ketorolac (TORADOL) injection 15 mg (COMPLETED) 15 mg, intravenous, Once, On 07/23/25 at 1912, For 1 dose 1939 (Given - Provid er: Elli Linda RN) methylPREDNISolone sodium succ (SOLU-Medrol) injection 125 mg (COMPLETED) 125 mg, intravenous, Once, On 07/23/25 at 1912, For 1 dose, Reconstitute each 125 mg vial with 2 mL sterile water for injection to a concentration of 62.5 mg/mL. 1942 (Given - Provid er: Elli Linda RN) sodium chloride 0.9 % flush 10 mL (COMPLETED) 10 mL, intravenous, Once, On 07/23/25 at 2051, For 1 dose 2052 (Given - Provid er: Maggi Wilson) documented in this encounter Orders Medications Ordered That Kang ht Not Have Been Administered Count Last Ordered Date First Ordered Date diphenhydrAMINE (BENADRYL) injection 25 mg 1 07/23/2025 ketorolac (TORADOL) injection 15 mg 1 07/23 methylPREDNISolone sod suc ( SOLU-Medrol) 1,000 mg in sodium chloride 0.9 % 100 mL IVPB 1 07/23/2025 metoclopramide (REGLAN) injection 10 mg 1 0 07/23/2025 sodium chloride 0.9 % bolus 1,000 mL 1 04/2025 documented in this encounter Care Teams Manager Presentation Relationship Specialty Start Date End Date Courtney Davila MD [address] [place] [address] PCP - General Family Medicine 02/22/25 documented as of this encounter
--- NOTE | 2025-07-29 11:36 | MHC.OFFVIS ---
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 Patient was referred by [facility] 04/19/25, at their visit they discussed her right sided lumbar pain that radiates to her right hip down to her leg. Patient reported that she can only walk for two hours due to the pain, sleep is being disturbed due to the pain. Patient has a history of Fibromyalgia. Patient has had X rays done in the past. At today's visit she states that for the past couple years she has had dull back pain, no falls or injury's to report. She states that she lives on the 3rd floor and the constant walking up and down causes the back pain to increase. Patient has tried and failed physical therapy and at home exercises, she felt that it made her back pain worse. No injections but would like to hold off on any form of injections. She added that recently her right leg has been buckling but catches herself. Mild relief from NSAIDS. Allergies No Known Allergies Allergy (Verified 07/29/25 11:41) HPI Comments Details: She points to right SI and buttocks area. Can go to lower back and down the foot when it is severe. She's been having this since she had epidural during labor; but has been worse and more freqeuent this past year. No groin pain. No numbness. Last PT few years ago. Independently reviewed right hip x-ray, mild joint space narrowing. [facility] Medical History Bipolar 1 disorder Depression Anxiety Umbilical hernia Lipoma of abdominal wall delivery delivered Asthma Surgical History History of loop electrical excision procedure (LEEP) Hx of section Family History Paternal Grandmother Breast CA Social History Are you a primary prompt care rn to a significant other at home: No Do you presently have visiting nurse or other home services: No Alcohol intake: unknown Patient Tobacco Use Status: Never used Tobacco Second Hand Smoke Exposure: No Substance Use Type: Marijuana Current occupational status: disabled Female Reproductive History Menstrual Age of Menarche: 14 Review of Systems Const All systems reviewed & are unremarkable except as noted in HPI and below Physical Exam Exam Exam: Constitutional: Patient appears to be in no acute distress, well nourished and well developed. Patient was appropriately conversant and oriented. Good historian. MSK: No specific abnormalities found on inspection of the spine and all extremities. No pain with palpation over the lumbar area. Right SI joint tender. Right piriformis tender. Right GT mildly tender. Lumbar ROM was full. Bilateral hip, knee and ankle ROM WNL. No ligamentous laxity or crepitance. No increased effusion. Straight-leg raising test negative. FABERE test negative. Gillet test is negative. Strength is 5/5 in all muscle groups tested. No increased tone noted. Neurological: Neurologic examination of the upper and lower extremities was nonfocal with intact sensation, muscle stretch reflexes and without focal motor deficits . Palomino?s negative bilaterally. Babinski was down going bilaterally. Clonus was negative. Gait is non-antalgic without loss of balance. Vital Signs: BMI result Body Mass Index 29.2 Results Reviewed Results Reviewed: Ordering Physician: Lexie Uriostegui Date of Service: 06/21/25 Procedure(s): XR hip RT w PEL1V Accession Number(s): [id number] cc: Lexie Uriostegui; Courtney Davila MD~ EXAMINATION: XR HIP 1 VIEW RIGHT WITH PELVIS HISTORY: pain COMPARISON: There are no prior studies available for comparison. FINDINGS: A single AP view of the pelvis and two views of the right hip are submitted. Osseous mineralization is normal. There is no fracture or dislocation. There is mild joint space narrowing. The soft tissues are unremarkable. XR/XR hip RT w [id number] IMPRESSION: Mild joint space narrowing. Electronically signed by: Frank Cervantes MD 06/21/2025 11:43 AM EDT I reviewed records from the following: Rheumatology- she used to follow Dr. Rios for fibromyalgia and positive REFUGIO Assessment & Plan Assessment & Plan (1) Sacroiliac joint dysfunction of right side: Code(s): M53.3 - Sacrococcygeal disorders, not elsewhere classified Category: Medical (2) Piriformis syndrome of right side: Code(s): G57.01 - Lesion of sciatic nerve, right lower limb Category: Medical Plan Right SI joint dysfunction and piriformis syndrome. Patient is eager to start physical therapy. PT referral placed. Patient would like to put off any injections as far as possible. Assessment and plan discussed with patient, and patient was agreeable. All questions were answered thoroughly. Follow up 2 months. Stephanie Pineda MD, JAZMYNE Board Certified, [place] [employer] and [employer] (ABPMR) Board Certified, [place] [employer] (ABEM) Orders: Orders PT Evaluation and Treatment Today G57.01 - Lesion of sciatic nerve, right lower limb, M53.3 - Sacrococcygeal disorders, not elsewhere classified Coding Level of Care Code New Pt Level 4 (50952) Diagnoses Sacroiliac joint dysfunction of right side M53.3 Piriformis syndrome of right side G57.01
[2025-07-29 11:41] VITALS: BMI 29.2
--- OUTSIDE RECORDS SUMMARY | 2025-07-29 13:15 | XMS_ITS | Encounter Summary ---
Author Organization [employer] Address [address] [place] [address] Care Team Providers Care Hospital Laboratory Technician Name Role Phone Courtney Davila MD Primary Care Provider [phone] Reason for Visit * Reason Comments Med Refill Encounter Details Date Type Department Care Team ([facility] st Contact Info) Description 07/21/2024 Refill [facility] [address] [place] [address] Kristy Stevens MD [address] [place] [address] Social History Tobacco Use Types Packs/Day Years [...] as of this encounter Plan of Treatment Upcoming Encounters Date Type Department Care Team (Late st Contact Info) Description 09/12/2025 9:15 AM EDT Office Visit [facility] [address] [place] [address] Courtney Davila MD [address] [place] [address] documented as of this encounter Visit Diagnoses Not on filedocumented in this encounter Additional Health Concerns Assessment Noted Time PHQ-9 Depression Total Score: 12 024 9:22 AM EDT documented as of this encounter Care Teams Hospital Laboratory Technician Relationship Specialty Start Date End Date Courtney Davila MD [address] [place] [id number] PCP - General Family Medicine 03/04/24 Yony Barbosa MD Psychiatrist Psychiatry 11/17/18 documented as of this encounter
--- OUTSIDE RECORDS SUMMARY | 2025-07-29 13:15 | XMS_ITS | Clinical Summary ---
Author Organization [employer] Address [address] [facility] 7 [place] [address] Care Team Providers Care Infusion Nurse Name Role Phone Courtney Davila MD Primary Care Provider [phone] Allergies No known active allergies Medications Blood Pressure kitIndications :Elevated blood pressure reading [...] daily. 180 tablet 11 07/09/20 24 Active Advair HFA 230-21 MCG/ACT inhaler INHALE 2 PUFFS EVERY 12 (TWELVE) HOURS. 12 g 11 01/12/20 25 Active cyclobenzaprin e (Flexeril) 10 MG tablet TAKE 1 TABLET BY MOUTH EVERY MORNING, NOON AND EVERY NIGHT AT BEDTIME FOR MUSCLE SPASM 90 tablet 3 04/06/20 25 Active pregabalin (Lyrica) 150 MG capsule TAKE 1 CAPSULE BY MOUTH TWICE A DAY 60 capsule 5 04/13/20 25 Active rosuvastatin (Crestor) 40 MG tablet TAKE 1 TABLET BY MOUTH EVERY MORNING 90 tablet 1 06/06/20 25 Active cholecalcifero l (Vitamin D-3) 50 MCG (1999 UT) tablet TAKE 1 TABLET BY MOUTH EVERY MORNING 30 tablet 3 07/06/20 25 Active SUMAtriptan (Imitrex) 50 MG tablet TAKE 1 TABLET BY MOUTH DAILY NEEDED FOR MIGRAINE 9 tablet 2 07/06/20 25 Active albuterol (Ventolin HFA) 108 (90 Base) MCG/ACT inhaler INHALE 2 PUFFS BY MOUTH EVERY FOUR HOURS NEEDED 18 g 3 07/06/20 25 Active ibuprofen 800 MG tablet TAKE 1 TABLET BY MOUTH THREE TIMES A DAY 90 tablet 07/06/20 25 Active polyethylene glycol, PEG, 3350 (MiraLax) 17 GM/SCOOP powderIndicati ons:Anal fissure Take 17 g by mouth Once per day. 527 g 07/11/20 25 Active senna-docusate sodium (Senokot-S) 8.6-50 MG tabletIndicati ons:Anal fissure Take 2 tablets by mouth Once per day. 60 tablet 3 07/11/20 25 Active lidocaine (Xylocaine) 5 % ointmentIndica tions:Anal fissure Apply topically if needed for mild pain. 60 g 07/11/20 25 Active nitroglycerin (Nitro-Bid) 2 % ointmentIndica tions:Anal fissure Place 0.5 inches on the skin every 6 (six) hours during the day. 30 g 07/11/20 25 026 Active cholecalcifero l (Vitamin D-3) 50 MCG (2000 UT) tablet Take 2,000 Units by mouth in the morning. 120 tablet 3 03/04/20 24 025 Discontinued SUMAtriptan (Imitrex) 50 MG tablet TAKE 1 TABLET BY MOUTH DAILY NEEDED FOR MIGRAINE 9 tablet 2 04/06/20 25 025 Discontinued albuterol (Ventolin HFA) 108 (90 Base) MCG/ACT inhaler INHALE 2 PUFFS BY MOUTH EVERY FOUR HOURS NEEDED 18 g 1 05/04/20 25 025 Discontinued ibuprofen 800 MG tablet TAKE 1 TABLET (800 MG) BY MOUTH 3 TIMES DAILY. 90 tablet 06/03/20 25 025 Discontinued Active Problems Problem Noted Date Diagnosed Date Lumbar radiculopathy 07/11/2025 Lumbar back pain 04/19/2025 Assessment & Plan (04/19/2025 8:05 AM EDT): Assessment: Patient reports pain in the lower back radiating down the right leg, particularly when walking down stairs. Pain worsens when lying down, limiting sleep to 2 hours. Physical examination reveals tenderness in the sacroiliac joint, positive iliotibial band test, and pain with hip movement. Differential diagnoses include iliotibial band syndrome, trochanteric bursitis, piriformis syndrome, and sacroiliac joint dysfunction. These conditions are consistent with the patient's symptoms and physical exam findings. Sciatica has been considered but not definitively diagnosed. Plan: - Order x-ray of hip and back - Prescribe ibuprofen 800 mg (frequency and duration not specified) - Refer to orthopedics - Consider physical therapy pending x-ray results - If conservative management fails, consider MRI Contraceptive education 04/19/2025 Assessment & Plan (04/19/2025 8:07 AM EDT): Patient expresses desire for permanent contraception. Previous discussions with another provider (animation camera operator in [facility] )resulted in contraindications for control pills due to blood clot risk and IUD placement. Patient's age and unspecified risk factors limit contraceptive options. Patient is considering tubal ligation but prefers partner to undergo vasectomy due to less invasive nature of the procedure. Plan: - Continue to explore contraceptive options - Discuss risks and benefits of tubal ligation versus vasectomy with patient and partner Overweight 04/19/2025 Assessment & Plan (04/19/2025 8:09 AM EDT): Discussed calorie deficit, recommended reduction of 20-30% of maintenance calories; director intelligence analysis programs referral offered. Recommended to decrease soda and sugary beverage consumption. Recommended at least 20 g per meal of protein to assist with satiety. Recommended at least 150 min/week of moderate intensity exercise. History of loop electrical excision procedure (L EEP) 04/15/2025 Overview (04/15/2025): Cervix tightly scarred. Previous Mirena exchange status post LEEP was extremely traumatic for patient..(10/11/2024 Pap is negative with negative HPV.) Hx of abnormal cervical Pap smear 04/15/2025 Overview (04/15/2025): SACHIN 2-3 2013, normals 2014,2015,2019; pap 07/05/21= neg w neg HPV; 07/10/2022 Pap is negative with negative HPV. (discussed plan for Pap in 2024, however during the exam, there was a discrepancy about when the last Pap was done, so out of an abundance of caution, Pap was done 10/11/2024= negative with negative HPV. Lipoma of abdominal wall 04/15/2025 Umbilical hernia 04/15/2025 Left ovarian cyst 10/04/2024 Assessment & Plan (10/04/2024 1:16 PM EST): Ordering US for further evaluation. Discussed medication refills. Relevant Medications Ibuprofen 800 mg Tablet Fibromyalgia 04/01/2024 Assessment & Plan (04/19/2025 8:05 AM EDT): Patient on chronic Lyrica. Working well. Will continue current regimen. Assessment & Plan (07/09/2024 10:53 AM EDT): Pt reports that Pregabalin (Lyrica) 150 MG capsule is helping tolerate the pain. IUD strings lost 04/01/2024 Overview (07/11/2025): Seen by Dr. Alvarado 01/12/25 and scheduled to undergo hysteroscopic IUD removal. Status post hysteroscopic IUD removal Assessment & Plan (04/01/2024 5:49 PM EDT): - US Pelvis was ordered - US Pelvis Transvaginal ordered -F/U after the ultrasound and possible referral to animation camera operator depending on results (Note: IUD removal [...] blood pressure reading 03/04/2024 Assessment & Plan (04/19/2025 8:08 AM EDT): Slightly elevated blood pressure 134/85 mmHg. Will continue to monitor. Assessment & Plan (10/04/2024 1:15 PM EST): [...] she stated that she has a therapist. Resolved Problems Problem Noted Date Diagnosed Date Resolved Date Presence of 52 mg levonorges trel-releasing intrauterine device (IUD) 04/15/2025 04/15/2025 Overview (04/15/2025): Strings are not visible patient has been educated about signs and symptoms that would indicate it is no longer working for contraceptive benefit and will alert us at 1st sign a plan for replacement made.; see note for extensive discussion strings still not visible patient will be scheduling consultation visit with animation camera operator to discuss replacement. Encounters Date Type Department Care Team Description 07/11/2025 11:00 AM EDT Office Visit [facility] MED & PEDS [address] [place] [address] Courtney Davila MD Lumbar radiculopathy (Primary Dx); Fibromyalgia; Anal fissure 07/11/2025 Travel 07/06/2025 Refill [facility] MED[facility] [address] [place] [address] Courtney Davila MD 07/01/2025 Patient Outreach [facility] [address] [place] [address] Courtney Davila MD Pre-visit Planning (SDOH screening completed on 04/04/25 ) 06/30/2025 Telephone [facility] PEDS [address] [place] [address] Courtney Davila MD chart prep 06/21/2025 Orders Only [facility] External Provider, [facility] 06/03/2025 Refill [facility] [address] [place] [address] Courtney Davila MD 06/01/2025 Refill [facility] [address] [place] [address] Courtney Davila MD 05/04/2025 Refill [facility] [address] [place] [address] Courtney Davila MD 05/04/2025 Refill [facility] [address] [place] [address] Junior Boudreaux MD from Last 3 Months Immunizations Immunization Administration Dates Next Due DTaP 05/03/2012, 1,01/04/1988,1986,1986,1986 Hep A, Adult 07/31/2017,01/14/2017 Hep B, Adolescent or Pediatric 12/17/2001,2000,07/24/1999 Hep B, adult 01/14/2017 Hib ([facility]) 02/01/1988 IPV 03/21/1988, 7,1986,1985 Influenza injectable quadriv alent preservative free 01/07/2019,12/23/2016 Influenza, IIV3, injectable 08/25/2014 Influenza, seasonal, injecta ble, preservative free 10/04/2024 MMR 03/10/1991,10/11/1987 Pneumococcal Conjugate PCV 20 04/15/2025 TD (adult), 2 Lf tetanus tox oid, [...] Answer Date Recorded Patient Health Questionnaire-9 Score 0 04/15/2025 Patient Health Questionnaire-9 Score 0 04/15/2025 Last PHQ-9: Questionnaire Data Not on file 0 04/15/2025 Housing Stability Answer Date Recorded What is your housing situation today? I have keltonelenita suero 04/04/[address] you li ve. Do you have problems with any of the following? None of the above 04/04/2025 Food Insecurity Answer Date Recorded Within the past 12 months, y ou worried that your food would run out before you got money to buy more: Never True 04/04/2025 Within the past 12 months,th e food you bought just didn't last and you didn't have enough money to get more: Never True Transportation Answer Date Recorded In the past 12 months, has l ack of transportation kept you from medical appts, meetings, work or from getting things needed for daily living? No 04/04/2025 Utilities Answer Date Recorded In the past 12 months, has t he electric, gas, oil or water company threatened to shut off services in your home? No 04/04/2025 Depression Answer Date Recorded Patient Health Questionnaire-2 Score 0 04/15/2025 Internet Access Answer Date Recorded Internet Access Q1 Yes 04/04/2025 Internet Access Q2 Not on file 04/04/2025 Comments Unknown Sex and Gender Information Value Date Recorded Sex Assigned at Female 09/16/2022 10:16 AM EDT Legal Sex Female 10:16 AM EDT Gender Identity Female 09/16/2022 10:16 AM EDT Sexual Orientation Straight 07/09/2024 11 :57 AM EDT Last Filed Vital Signs Vital Sign Reading Time Taken Comments Blood Pressure 119/86 07/11/2025 11:15 AM EDT Pulse 78 07/11/2025 11:15 AM EDT Temperature 36.8 C (98.2 F) 07/11/2025 11:15 AM EDT Respiratory Rate 20 07/11/2025 11:15 AM EDT Oxygen Saturation 99% 07/11/2025 11:15 AM EDT Inhaled Oxygen Concentration - - Weight 77.4 kg (170 lb 9.6 oz) 07/11/2025 11:15 AM EDT Height 160 cm (5' 3 ) 07/11/2025 11:15 AM EDT Body Mass Index 30.22 07/11/2025 11:15 AM EDT Plan of Treatment Upcoming Encounters Date Type Department Care Team (Late st Contact Info) Description 09/12/2025 9:15 AM EDT Office Visit [facility] [address] [place], [place] [phone] Courtney Davila MD [address] [place] [address] Health Maintenance Due Date Last Done Comments Family Planning (PISQ) 2001 HPV Vaccines (1 - 3-dose series) 2001 COVID-19 Vaccine ( season) 2025 11/30/2021, 06/12/2021, 05/15/2021 Influenza Vaccine (#1) 2025 , 01/07/2019, 12/23/2016, Additional history exists SDOH Screening 04/04/2026 04/04/2025 Depression Screening 04/15/2026 04/15/2025, 04/15/20 Alcohol/Substance Use Screening 07/11/2026 07/11/2025 Disability Screening 07/11/2026 07/11/2025 Tobacco Screening 07/11/2026 07/11/2025 DTaP/Tdap/Td Vaccines (8 - Td or Tdap) 12/23/2026 12/23/2016, 05/03/2012, 07/24/1999, Additional history exists Lipid Panel 02/05/2029 02/06/2024 Cervical Cancer Screening 10/11/2029 HPV/Cotest 10/11/2029 07/10/2022, [...] Completed 03/04/2024 Hepatitis C Screening Completed 03/04/2024 Pneumococcal Vaccine: Pediatrics (0 to 5 Years) and At-Risk Patients (6 to 49) Years Completed 04/15/2025 Meningococcal B Vaccine Aged Out No l [...] Procedure Name Priority Date/Time Associated Diagnosis Comments XR HIP RIGHT WITH PELVIS 1 VIEW Routine 06/21/2025 11:25 AM EDT PAP SMEAR Routine 10/11/2024 12:00 AM EST HEPATITIS C AB W/REFL TO HCV RNA, QN, PCR Routine 03/04/2024 1:51 PM EDT Encounter for health-related screening HIV 1/2 ANTIGEN/ANTIBODY, FOURTH GENERATION W/RFL Routine 03/04/2024 1:51 PM EDT Encounter for health-related screening LIPID PANEL, STANDARD Routine 02/06/2024 8:20 AM EDT Vitamin D deficiency Tingling of both feet Arthralgia, unspecified joint Rib pain on left side ZZZ HISTORICAL HPV E6/E7 RFLX ROBERT 16 18/45 Routine 07/10/2022 11:46 AM EDT from Last 3 Months or Most Recently Relevant to Health Maintenance Results * XR Hip right with Pelvis 1 view (06/21/2025 11:25 AM EDT) Anatomical Region Laterality Modality Lower Extremities, Hip Bilateral Radiograp hic Imaging 06/21/2025 11:2 5 AM EDT Narrative 06/21/2025 11:46 AM EDT [address] [address] XRay Report Signed Patient: Amy Hawk MR#: [id number] 18 : 1985 Acct:[id number] Age/Sex: 40 / F ADM Date: 06/21/25 Loc: HO.ED Attending Dr: Ordering Physician: Lexie Uriostegui Date of Service: 06/21/25 Procedure(s): XR hip RT w PEL1V Accession Number(s): [id number] cc: Lexie Uriostegui; Courtney Davila MD EXAMINATION: XR HIP 1 VIEW RIGHT WITH PELVIS HISTORY: pain COMPARISON: There are no prior studies available for comparison. FINDINGS: A single AP view of the pelvis and two views of the right hip are submitted. Osseous mineralization is normal. There is no fracture or dislocation. There is mild joint space narrowing. The soft tissues are unremarkable. XR/XR hip RT w PEL1V IMPRESSION: Mild joint space narrowing. Electronically signed by: Frakn Cervantes MD 06/21/2025 11:43 AM EDT Dictated By: Frank Cervantes MD Signed By: <Electronically signed by Frank Cervantes MD in OV> 06/21/25 1143 DD/ 1125 TD/TT: 06/21/25 1135 Division Leader: Procedure Note Donotuseinterpreter, Image - 06/21/[address] [address] XRay Report Signed Patient: Amy HawkMR#: [id number] 18 : 1985Acct:[id number] Age/Sex: 40 / FADM Date: 06/21/25 Loc: HO.ED Attending Dr: Ordering Physician: Lexie Uriostegui Date of Service: 06/21/25 Procedure(s): XR hip RT w PEL1V Accession Number(s): [id number] cc: Lexie Uriostegui; Courtney Davila MD EXAMINATION: XR HIP 1 VIEW RIGHT WITH PELVIS HISTORY: pain COMPARISON: There are no prior studies available for comparison. FINDINGS: A single AP view of the pelvis and two views of the right hip are submitted. Osseous mineralization is normal. There is no fracture or dislocation. There is mild joint space narrowing. The soft tissues are unremarkable. XR/XR hip RT w [id number] IMPRESSION: Mild joint space narrowing. Electronically signed by: Frank Cervantes MD 06/21/2025 11:43 AM EDT Dictated By: Frank Cervantes MD Signed By: <Electronically signed by Frank Cervantes MD in OV> 06/21/25 1143 DD/ 1125 TD/TT: 06/21/25 1135 Division Leader: [facility] External Provider IMG XR PROCEDURES Edited Result - Final * Pap Smear (10/11/2024 12:00 AM EST) 10/11/2024 10/12/2024 9: 50 AM EST [facility] - 10/19/2024 9:56 AM EST ----- ------- Name: Refugiojuan albertohiramAmy Age/Sex: 39/F : 1985 Unit#: [id number] Attend Dr: Ericka Martinez CNM Re10/11/24 Status: DEP REF Location: .LAB Disch: ----- ------- SPEC : [id number] RECD: 10/12/24 STATUS: RIO MEZA NUM: [id number] MAYI: 10/11/24-[address]: Ericka Martinez CNM ENTERED: 10/12/24 SP TYPE: Pap Smr OTHR DR: Courtney Davila MD ORDERED: Pap Smear Interpretation Satisfactory for evaluation. No endocervical cells seen. Negative for intraepithelial lesion or malignancy. HPV High Risk: Negative HPV Genotyping 16: Negative HPV Genotyping 18: Negative Clinical Information LMP: No/IUD Previous PAP test: 2021, 2020, neg, abnormal Material Received ThinPrep-Cervical Copies To: Ericka Martinez CNM [facility] [address] [place] [address], [address] [place] [address] Courtney Davila MD [address] [place] [phone] ----- ------- Signed (signature on file) RUPINDER Cabello (ASC) 10/19/24 0956 ----- ------- END OF REPORT Generic External Data Provider LAB CYTOLOGY ATIF BENNETT Final Result Performing Organization Address [facility]/ZIP Co de Phone Number [facility] [address] [place] [address] [phone] * Hepatitis C Antibody with Reflex to HCV, RNA, Quantitative, Real-Time PCR (03/04/2024 1:51 PM EDT) Hepatitis C Antibody Nonreactive Nonreactive [facility] Comment:Antibodies to HCV no t detected; does not exclude early acuteHCV infection. Blood Venous blood specimen / Unknown 03/04/2024 1:51 PM EDT 03/04/2024 2:18 PM EDT Courtney Davila MD LAB BLOOD ORDERABLES Final Re sult Performing Organization Address [facility]/ZIP Co de Phone Number [facility] [address] [place] [address] [phone] * HIV-1/2 Antigen and Antibodies, Fourth Generation, with Reflexes (03/04/2024 1:51 PM EDT) HIV AB/AG Nonreactive Nonreactive [facility] Comment:HIV-1 p24 Ag and/or HIV-1/HIV-2 Ab not detected.A test result that is nonreactive does not exclude thepossibility of exposure to or infection with HIV-1 and/orHIV-2. Nonreactive results in this assay for individualswith prior exposure to HIV-1 and/or HIV-2 may be due toantigen and antibody levels that are below the limit ofdetection of this assay.The [email or web address] HIV Ag/Ab Combo assay result andsupplemental assay [...] Re sult Performing Organization Address [facility] Co de Phone Number [facility] [address] [place] [address] [phone] * (ABNORMAL) Lipid Panel, Standard (02/06/2024 8:20 AM EDT) Triglycerides 111 <150 mg/dL [facility] Comment:Desirable Triglyceri de: less than 150 mg/dLBorderline High Triglyceride 150-199 mg/dLHigh Triglyceride: 200-499 mg/dLVery High Triglyceride: greater than or equal to 5OO mg/dL Cholesterol 235(H) <200 mg/dL [facility] Comment:Desirable Cholestero l: less than 200 mg/dLBorderline High Cholesterol: 200-239 mg/dLHigh Cholesterol: greater than 239 mg/dL LDL Cholesterol Calculated 173(H) <100 mg/dL [facility] Comment:Desirable LDL: less than 100 mg/dLNear Optimal/Above Optimal LDL: 110- 129 mg/dLBorderline High LDL: 130-159 mg/dLHigh LDL: 160-189 mg/dLVery High LDL: greater than or equal to 190 mg/dL HDL Cholesterol 40(L) >40 mg/dL [facility] Comment:Desirable HDL: great er than 40 mg/dL Note: This HDL assay may give artificially low results in patients with liver disease. Blood Venous blood specimen / Unknown 02/06/2024 8:20 AM EDT 02/06/2024 8:26 AM EDT us Angelina Morales MD LAB BLOOD ORDERABLES Final Re sult Performing Organization Address [facility]/ZIP Co de Phone Number [facility] [address] [place] [address] [phone] * HPV E6/E7 RFLX ROBERT 16 18/45 (07/10/2022 11:46 AM EDT) HPV 16 RNA [facility] HPV 18/45 RNA [facility] HPV E6 E7 ADD [facility] HPV mRNA E6/E7 rflx Not Detected Not Detected [facility] Comment: Methodology: Cutter Out-Mediated Amplification This assay detects E6/E7 viral messenger RNA (mRNA) from 14 high-risk HPV types (16,18,31,33,35,39,45,51,52,56,58,59,66,68). Cervical sources are required for HPV testing. If a vaginal source from a patient who has had a total hysterectomy with removal of cervix was submitted, please contact the testing laboratory for alternative testing options. For additional information, please refer to http://education.Demdex/faq/GEF690v6 (This link if provided for information/ educational purposes only.) THIS TEST WAS PERFORMED AT: [facility] [address] [place] [address],[place] [address] MORA STARR MD 07/10/2022 11:4 6 AM EDT Ericka Martinez HISTORICAL/NON ORDERABLE LABS Fi nal Result [facility] [address] from Last 3 Months or Most Recently Relevant to Health Maintenance Insurance Care Teams Infusion Nurse Relationship Specialty Start Date End Date Courtney Davila MD [address] [place] [phone] PCP - General Family Medicine 03/04/24 Yony Barbosa MD Psychiatrist Psychiatry 11/17/18
--- OUTSIDE RECORDS SUMMARY | 2025-07-29 13:15 | XMS_ITS | Encounter Summary ---
Author Organization [employer] Address [address] [facility] 7 [place] [address] Care Team Providers Care Planning Associate Name Role Phone Brittany Ruiz [facility] Primary Care Provider [phone] Courtney Davila MD Primary Care Provider [phone] Reason for Visit * Reason Onset Date Comments Nurse Triage 06/19/2023 Encounter Details Date Type Department Care Team (Late st Contact Info) Description 06/19/2023 Telephone [facility] MEDICINE [address] [place], [place] [phone] [facility] [address] [place], [place] [phone] Nurse Triage Social History Tobacco Use Types [...] water gargle. Advised Pt to come to [facility] first thing tomorrow morning. [facility] closes at 4pm today and Pt [...] accepted this outcome Please contact pt at [phone] documented in this encounter Plan of Treatment Upcoming Encounters Date Type Department Care Team ([facility] st Contact Info) Description 09/12/2025 9:15 AM EDT Office Visit [facility] MED & PEDS [address] [place] [address] Courtney Davila MD [address] [place] [address] documented as of this encounter Visit Diagnoses Not on filedocumented in this encounter Care Teams Planning Associate Relationship Specialty Start Date End Date Brittany Ruiz FNP [address] [place] [address] PCP - General Family Medicine 04/29/22 03/03/24 Courtney Davila MD [address] [place] [address] PCP - General Family Medicine 03/04/24 Yony Barbosa MD Psychiatrist Psychiatry 11/17/18 documented as of this encounter
--- OUTSIDE RECORDS SUMMARY | 2025-07-29 13:15 | XMS_ITS | Encounter Summary ---
Author Organization [employer] Address [address] [facility] [address] [place] [address] Care Team Providers Care Practice Support Specialist Name Role Phone Courtney Davila MD Primary Care Provider [phone] Reason for Visit * Reason Comments Med Refill Encounter Details Date Type Department Care Team ([facility] Contact Info) Description 08/17/2024 Refill [facility] MED & PEDS [address] [place] [address] Kristy Stevens MD [address] [place] [address] Social History Tobacco Use Types Packs/Day Years [...] Description 09/12/2025 9:15 AM EDT Office Visit [facility] MED & PEDS [address] [place] [address] Courtney Davila MD [address] [place] [address] documented as of this encounter Visit Diagnoses Not on filedocumented in this encounter Additional Health Concerns Assessment Noted Time PHQ-9 Depression Total Score: 12 024 9:22 AM EDT documented as of this encounter Care Teams Practice Support Specialist Relationship Specialty Start Date End Date Courtney Davila MD [address] [place] [phone] PCP - General Family Medicine 03/04/24 Yony Barbosa MD Psychiatrist Psychiatry 11/17/18 documented as of this encounter
--- OUTSIDE RECORDS SUMMARY | 2025-07-29 13:15 | XMS_ITS | Encounter Summary ---
Author Organization [employer] Address 75 [facility] [address] [place] [address] Care Team Providers Care Supervisor Publications Name Role Phone Courtney Davila MD Primary Care Provider [phone] Reason for Visit * Reason Comments Med Refill Encounter Details Date Type Department Care Team ([facility] Contact Info) Description 03/09/2025 Refill [facility] CHC MED & PEDS [address] [place], [place] [phone] Courtney Davila MD [address] [place] [address] Social History Tobacco Use Types Packs/Day Years [...] 09/12/2025 9:15 AM EDT Office Visit [facility] MED & PEDS [address] [place] [address] Courtney Davila MD [address] [place] [address] documented as of this encounter Visit Diagnoses Not on filedocumented in this encounter Additional Health Concerns Assessment Noted Time PHQ-9 Depression Total Score: 12 024 9:22 AM EDT documented as of this encounter Care Teams Supervisor Publications Relationship Specialty Start Date End Date Courtney Davila MD [address] [place] [address] PCP - General Family Medicine 03/04/24 Yony Barbosa MD Psychiatrist Psychiatry 11/17/18 documented as of this encounter
--- OUTSIDE RECORDS SUMMARY | 2025-07-29 13:15 | XMS_ITS | Encounter Summary ---
Author Organization [employer] Address 75 [facility] 7 [place] [address] Care Team Providers Care Dbas Name Role Phone Courtney Davila MD Primary Care Provider [phone] Reason for Visit * Reason Comments Med Refill Encounter Details Date Type Department Care Team ([facility] Contact Info) Description 04/05/2025 Refill [facility] CHC MED & PEDS [address] [place], [place] [phone] Courtney Davila MD [address] [place] [address] Social History Tobacco Use Types Packs/Day Years [...] housing situation today? I have kelton suero 04/04/[address] you [...] Recorded Patient Health Questionnaire-2 Score 3 07/09/2024 Internet Access Answer Date Recorded Internet Access [...] Description 09/12/2025 9:15 AM EDT Office Visit [facility] MED & PEDS [address] [place] [address] Courtney Davila MD [address] [place] [address] documented as of this encounter Visit Diagnoses Not on filedocumented in this encounter Additional Health Concerns Assessment Noted Time PHQ-9 Depression Total Score: 12 024 9:22 AM EDT documented as of this encounter Care Teams Dbas Relationship Specialty Start Date End Date Courtney Davila MD [address] [place] [address] PCP - General Family Medicine 03/04/24 Yony Barbosa MD Psychiatrist Psychiatry 11/17/18 documented as of this encounter
--- OUTSIDE RECORDS SUMMARY | 2025-07-29 13:15 | XMS_ITS | Encounter Summary ---
Author Organization [employer] Address 75 [facility] 7 [place] [address] Care Team Providers Care Forging Roll Operator Name Role Phone Courtney Davila MD Primary Care Provider [phone] Reason for Visit * Reason Comments Med Refill Encounter Details Date Type Department Care Team ([facility] Contact Info) Description 04/05/2025 Refill [facility] CHC MED & PEDS [address] [place] [address] Junior Boudreaux MD [address] [place] [address] Social History Tobacco Use Types Packs/Day Years [...] Description 09/12/2025 9:15 AM EDT Office Visit [facility] CHC MED & PEDS [address] [place] [address] Courtney Davila MD [address] [place] [address] documented as of this encounter Visit Diagnoses Not on filedocumented in this encounter Additional Health Concerns Assessment Noted Time PHQ-9 Depression Total Score: 12 024 9:22 AM EDT documented as of this encounter Care Teams Forging Roll Operator Relationship Specialty Start Date End Date Courtney Davila MD [address] [place] [address] PCP - General Family Medicine 03/04/24 Yony Barbosa MD Psychiatrist Psychiatry 11/17/18 documented as of this encounter
--- OUTSIDE RECORDS SUMMARY | 2025-07-29 13:16 | XMS_ITS | Clinical Summary ---
Author Organization [facility] Address [address] [place] [address] Phone Care Team Providers Care Infection Prevention Coordinator Name Role Phone Courtney Davila MD Primary Care Provider [phone] Allergies No known active allergies Medications predniSONE (DELTASONE) 50 mg tablet Take 1 tablet (50 mg total) by mouth 1 (one) time each day for 5 days. 5 each 07/23/2025 Active Problems No known active problems Encounters Date Type Department Care Team Description 07/23/2025 6:26 PM EDT - 07/23/2025 10:17 PM EDT Emergency [facility] Emergency [address] [place] [address] Riky Vaz MD Elevated d-dimer (Primary Dx); Exacerbation of asthma, unspecified asthma severity, unspecified whether persistent; Pleuritic chest pain Discharge Disposition: Home or Self Care from Last 3 Months Social History Tobacco Use Types Packs/Day Years Used Date Smoking Tobacco: Unknown Tobacco Cessation:Counseling Given: Not Answered Comments Unknown Sex and Gender Information Value Date Recorded Sex Assigned at Female 02/22/2025 3:25 PM EDT Legal Sex Female 1:14 PM EDT Gender Identity Female 02/22/2025 3:25 PM EDT Sexual Orientation Straight 02/22/2025 3: 25 PM EDT Travel History Travel Start Travel End [place] 06/22/2025 07/23/2025 Obstetrics History Last Filed Vital Signs Vital [...] Mass Index 29.23 07/23/2025 2:24 PM EDT Plan of Treatment Health Maintenance Due Date Last Done Comments Depression Screening 11/17/2024 Social Influencers of Health Screening 02/22/2025 COVID-19 Vaccine ( season) 2025 11/30/2021, 06/12/2021, 05/15/2021 Influenza Vaccine (#1) 2025 , 01/07/2019, 12/23/2016, Additional history exists DTaP,Tdap,and Td Vaccines (9 - Td or Tdap) 12/23/2026 12/23/2016, 05/03/2012, 07/24/1999, Additional history exists Cervical Cancer Screening: Pap Smear 10/11/2027 10/11/2024 Cholesterol Screening (Lipid Panel) 02/05/2029 02/06/2024 HIB Vaccines Completed 02/01/1988 IPV Vaccines Completed [...] and At-Risk Patients (6 to 49 Years) Completed 04/15/2025 HPV Vaccines Aged Out No longer eligi [...] URINE DIAGNOSTIC STAT 07/23/2025 8:47 PM EDT D-DIMER STAT 07/23/2025 6:56 PM EDT TROPONIN I HIGH SENSITIVITY Timed 07/23/2025 6:56 PM EDT ECG 12-LEAD STAT 07/23/2025 6:37 PM EDT CBC WITH AUTO DIFFERENTIAL STAT 07/23/2025 4:17 PM EDT B-TYPE NATRIURETIC PEPTIDE STAT 07/23/2025 4:17 PM EDT MAGNESIUM STAT 07/23/2025 4:17 PM EDT LIPASE STAT 07/23/2025 4:17 PM EDT COMPREHENSIVE METABOLIC PANEL STAT 07/23/2025 4:17 PM EDT CBC AND DIFFERENTIAL STAT 07/23/2025 4:17 PM EDT TROPONIN I HIGH SENSITIVITY Timed 07/23/2025 4:17 PM EDT XR CHEST 2 VIEWS STAT 07/23/2025 2:33 PM EDT ECG 12-LEAD STAT 07/23/2025 2:21 PM EDT from Last 3 Months Results * ECG-Annotated (07/25/2025) Only the most recent of2 resultswithin the time period is included. us Provider Onbase ECG ORDERABLES Final Result * CT Angio [...] urine manually resulted (07/23/2025 8:47 PM EDT) HCG, Ur POC Negative Negative Urine Urine specimen obtained by clean catch procedure / Unknown 07/23/2025 8:47 PM EDT Riky Vaz MD POINT OF CARE TEST ENTER/REBEKAH T ORDERABLES Final Result * Troponin I high sensitivity (07/23/2025 6:56 PM EDT) Only the most recent of2 resultswithin the time period is included. [facility] High Sensitivity Troponin I <3 <=54 ng/L LAB CHEMISTRY METHOD 07/23/2025 7:51 PM EDT [facility] Blood Venous blood specimen / Unknown Venipuncture / Unknown 07/23/2025 6:56 PM EDT 07/23/2025 7:07 PM EDT [facility] - 07/23/2025 7:51 PM EDT High levels of biotin in samples may falsely decrease hsTroponin values. Use caution when interpreting hsTroponin results in patients taking biotin who exhibit renal impairment (eGFR <60) or in patients taking more than 20 mg/day of biotin. Riky aVz MD LAB BLOOD ORDERABLES Final R esult [facility] [address] [place] [address], * (ABNORMAL) D-Dimer (07/23/2025 6:56 PM EDT) [facility] D-Dimer, Quant (D-DU) 319(H) <=230 ng/mL DDU LAB COAGULATION METHOD 07/23/2025 7:20 PM EDT [facility] Blood Venous blood specimen / Unknown Venipuncture / Unknown 07/23/2025 6:56 PM EDT 07/23/2025 7:07 PM EDT [facility] - 07/23/2025 7:20 PM EDT D-Dimer <230 ng/mL (D-Dimer units) is the threshold for exclusion of DVT/PE. D-Dimer may be elevated in: Critically ill, severely infected, trauma patients, DIC, acute CVA, acute DE, unstable angina, AF, old age, , and smoking. D-Dimer may be decreased with: Initiation of heparin therapy and oral anticoagulants. Riky Vaz MD LAB BLOOD ORDERABLES Final R esult Performing Organization Address [facility] Co de Phone Number [facility] [address] [place] [address], [place] [phone] * ECG 12 lead (07/23/2025 6:37 PM EDT) Only the most recent of2 resultswithin the time period is included. Ventricular Rate ECG 83 BPM GEMUSE Atrial Rate 83 BPM GEMUSE P-R Interval 136 ms GEMUSE QRS Duration 84 ms GEMUSE Q-T Interval 312 ms GEMUSE QTc 366 ms GEMUSE P Wave Redig 42 degrees GEMUSE T Redig 17 degrees GEMUSE ECG Interpretation Normal sinus rhythm Nonspecific T wave abnormality Abnormal ECG When compared with ECG of 23-JUL-2025 14:21, (unconfirmed) No significant change was found Confirmed by DIDIER LOCKHART ([id number]) on 07/24/2025 7:17:59 AM GEMUSE 07/23/2025 6:37 PM EDT 07/24/2025 7:17 AM EDT Jose Alfredo Dawn MD ECG ORDERABLES Final Resul t Performing Organization Address [facility] de Phone Number GEMUSE * (ABNORMAL) CBC auto differential (07/23/2025 4:17 PM EDT) WBC 10.7 4.8 - 10.8 K/mcL LAB HEMETOLOGY METHOD 07/23/2025 5:04 PM EDT [facility] RBC 4.50 3.80 - 4.80 M/mcL LAB HEMETOLOGY METHOD 07/23/2025 5:04 PM EDT [facility] Hemoglobin 12.6 11.5 - 16.0 g/dL LAB HEMETOLOGY METHOD 07/23/2025 5:04 PM EDT [facility] Hematocrit 39.0 35.0 - 47.0 % LAB HEMETOLOGY METHOD 07/23/2025 5:04 PM EDT [facility] MCV 86.7 79.0 - 98.0 FL LAB HEMETOLOGY METHOD 07/23/2025 5:04 PM [facility] MCH 28.0 27.0 - 32.0 pcg LAB HEMETOLOGY METHOD 07/23/2025 5:04 PM EDT [facility] MCHC 32.3 32.0 - 37.0 g/dL LAB HEMETOLOGY METHOD 07/23/2025 5:04 PM [facility] RDW 12.6 11.0 - 15.0 % LAB HEMETOLOGY METHOD 07/23/2025 5:04 PM [facility] Platelets 245 130 - 400 K/mcL LAB HEMETOLOGY METHOD 07/23/2025 5:04 PM EDT [facility] MPV 10.3 7.0 - 11.0 FL LAB HEMETOLOGY METHOD 07/23/2025 5:04 PM [facility] NRBC 0.0 <1.0 % LAB HEMETOLOGY METHOD 07/23/2025 5:04 PM [facility] NRBC Absolute 0.00 <0.10 K/mcL LAB HEMETOLOGY METHOD 07/23/2025 5:04 PM EDT [facility] Neutrophils Relative 66.9 % LAB HEMETOLOGY METHOD 07/23/2025 5:04 PM [facility] Lymphocytes Relative 23.3 % LAB HEMETOLOGY METHOD 07/23/2025 5:04 PM [facility] Monocytes Relative 7.6 % LAB HEMETOLOGY METHOD 07/23/2025 5:04 PM [facility] Eosinophils Relative 0.9 % LAB HEMETOLOGY METHOD 07/23/2025 5:04 PM EDT [facility] Basophils Relative 0.6 % LAB HEMETOLOGY METHOD 07/23/2025 5:04 PM EDT [facility] Immature Granulocytes Relative 0.7 % LAB HEMETOLOGY METHOD 07/23/2025 5:04 PM EDT [facility] Neutrophils Absolute 7.15(H) 1.50 - 7.00 K/mcL LAB HEMETOLOGY METHOD 07/23/2025 5:04 PM EDT [facility] Lymphocytes Absolute 2.49 1.00 - 5.00 K/mcL LAB HEMETOLOGY METHOD 07/23/2025 5:04 PM EDT [facility] Monocytes Absolute 0.81 0.20 - 1.00 K/mcL LAB HEMETOLOGY METHOD 07/23/2025 5:04 PM EDT [facility] Eosinophils Absolute 0.10 0.00 - 0.50 K/mcL LAB HEMETOLOGY METHOD 07/23/2025 5:04 PM EDT [facility] Basophils Absolute 0.06 0.00 - 0.20 K/mcL LAB HEMETOLOGY METHOD 07/23/2025 5:04 PM EDT [facility] Immature Granulocytes Absolute 0.07(H) 0.00 - 0.03 K/mcL LAB HEMETOLOGY METHOD 07/23/2025 5:04 PM EDT [facility] Blood Venous blood specimen / Unknown Venipuncture / Unknown 07/23/2025 4:17 PM EDT 07/23/2025 4:53 PM EDT us Riky Vaz MD LAB BLOOD ORDERABLES Final R esult [facility] [address] [place] [address], * B-type natriuretic peptide (07/23/2025 4:17 PM EDT) BNP 19 <=100 pcg/mL LAB CHEMISTRY METHOD 07/23/2025 5:32 PM EDT [facility] Blood Venous blood specimen / Unknown Venipuncture / Unknown 07/23/2025 4:17 PM EDT 07/23/2025 4:53 PM EDT Riky Vaz MD LAB BLOOD ORDERABLES Final R esult [facility] [address] [place] [address], [place] [phone] * Magnesium (07/23/2025 4:17 PM EDT) Pathologist [facility] Magnesium 2.0 1.9 - 2.6 mg/dL LAB CHEMISTRY METHOD 07/23/2025 5:24 PM EDT [facility] Blood Venous blood specimen / Unknown Venipuncture / Unknown 07/23/2025 4:17 PM EDT 07/23/2025 4:53 PM EDT Riky Vaz MD LAB BLOOD ORDERABLES Final R esult Performing Organization Address City[facility]/ZIP Co de Phone Number [facility] [address] [place] [address], [place] [phone] * Lipase (07/23/2025 4:17 PM EDT) Pathologist [facility] Lipase 54 13 - 75 unit/L LAB CHEMISTRY METHOD 07/23/2025 5:24 PM EDT [facility] Blood Venous blood specimen / Unknown Venipuncture / Unknown 07/23/2025 4:17 PM EDT 07/23/2025 4:53 PM EDT Riky Vaz MD LAB BLOOD ORDERABLES Final R esult [facility] [address] [place] [address], * Comprehensive metabolic panel (07/23/2025 4:17 PM EDT) Sodium 140 133 - 145 mmol/L LAB CHEMISTRY METHOD [facility]/23/2025 5:24 PM [facility] Potassium 3.8 3.5 - 5.5 mmol/L LAB CHEMISTRY METHOD 07/23/2025 5:24 PM [facility] Chloride 109 96 - 110 mmol/L LAB CHEMISTRY METHOD 07/23/2025 5:24 PM [facility] CO2 25 21 - 32 mmol/L LAB CHEMISTRY METHOD 07/23/2025 5:24 PM [facility] Anion Gap 6 3 - 11 LAB CHEMISTRY METHOD 07/23/2025 5:24 PM [facility] Glucose 79 70 - 100 mg/dL LAB CHEMISTRY METHOD 07/23/2025 5:24 PM [facility] BUN 15 5 - 25 mg/dL LAB CHEMISTRY METHOD 07/23/2025 5:24 PM [facility] Creatinine 0.60 0.50 - 1.10 mg/dL LAB CHEMISTRY METHOD 07/23/2025 5:24 PM [facility] eGFR 117 >=60 mL/min/1. 73m2 LAB CHEMISTRY METHOD 07/23/2025 5:24 PM [facility] Comment:Calculation based on the Chronic Kidney Disease Epidemiology Collaboration (CKD-EPI) equation refit without adjustment for race. BUN/Creatinine Ratio 25.0 LAB CHEMISTRY METHOD 07/23/2025 5:24 PM [facility] Calcium 9.2 8.5 - 10.5 mg/dL LAB CHEMISTRY METHOD 07/23/2025 5:24 PM [facility] AST (SGOT) 13 10 - 42 unit/L LAB CHEMISTRY METHOD 07/23/2025 5:24 PM EDT [facility] ALT (SGPT) 19 10 - 60 unit/L LAB CHEMISTRY METHOD 07/23/2025 5:24 PM EDT [facility] Alkaline Phosphatase 59 42 - 121 unit/L LAB CHEMISTRY METHOD 07/23/2025 5:24 PM EDT [facility] Total Protein 6.8 6.0 - 8.0 g/dL LAB CHEMISTRY METHOD 07/23/2025 5:24 PM EDT [facility] Albumin 3.8 3.2 - 5.0 g/dL LAB CHEMISTRY METHOD 07/23/2025 5:24 PM EDT [facility] Total Bilirubin 0.5 0.0 - 1.4 mg/dL LAB CHEMISTRY METHOD 07/23/2025 5:24 PM EDT [facility] Blood Venous blood specimen / Unknown Venipuncture / Unknown 07/23/2025 4:17 PM EDT 07/23/2025 4:53 PM EDT us Riky Vaz MD LAB BLOOD ORDERABLES Final R esult [facility] [address] [place] [address], [place] [phone] * XR Chest 2 Views (07/23/2025 2:33 PM EDT) Anatomical Region Laterality Modality Body Radiographic Rosa ging 07/23/2025 2:43 PM EDT Impressions 07/23/2025 2:44 PM EDT No acute findings. -------- FINAL REPORT -------- Dictated By: Tito Diana Dictated Date: 07/23/2025 14:43 ET Assigned Physician: Tito Diana Reviewed and Electronically Signed By: Tito Diana Signed Date: 07/23/2025 14:44 ET Workstation ID: [id number] Transcribed By: Self Edit Transcribed Date: 07/23/2025 [...] Signed Date: 07/23/2025 14:44 ET Workstation ID: [id number] Transcribed By: Self Edit Transcribed Date: 07/23/2025 14:43 ET Riky Vaz MD IMG XR PROCEDURES Final Resu lt from Last 3 Months Insurance MEDICAID - [place] Care Teams Infection Prevention Coordinator Relationship Specialty Start Date End Date Courtney Davila MD [address] [place] [id number] PCP - General Family Medicine 02/22/25
== END 2025-07-29 12:27 | disposition home or self-care (01) ==
LOC: HO.HOS 11:14
PROVIDERS: PCP Family Medicine; Visit Provider Physical Medicine & Rehabilitation
DX: M53.3 Sacrococcygeal disorders, not elsewhere classified (principal); G57.01 Lesion of sciatic nerve, right lower limb
CPT/HCPCS: 99203

== ENCOUNTER → 2025-07-29 11:13 | Outpatient (BNVA) | payer MEDICAID, SELFPAY | PROVIDERS: PCP Family Medicine; Visit Provider Physical Medicine & Rehabilitation | DX: G57.01 Lesion of sciatic nerve, right lower limb (principal); M53.3 Sacrococcygeal disorders, not elsewhere classified | CPT/HCPCS: 99202 ==

== ENCOUNTER 2025-10-03 14:05 | Outpatient (RCR) | payer MEDICAID, SELFPAY ==
--- NOTE | 2025-09-26 12:37 | MHC.PT.EP ---
[facility] [place] Office [place] Office [place] Office [address] Natalie Lobato [address] [phone] F: [phone] F: [phone] F: [phone] F: [phone] Physical Therapy Plan of Care Date of Evaluation: 09/26/25 Date of Surgery: Diagnosis: SACROCOCCYGEAL DISORDER/ SI Jt DISORDER, LESION OF Rt SCIATIC PAIN; Rt PIRIFORMIS SYNDROME-> WORK ON Rt SI Jt, PIRIFORMIS, TROCHANTER Assessment: 40 YO FEMALE REF TO PT WITH A 1.5 YR H/O Rt SI Jt DYSFUNCTION AND Rt PIRIFORMIS SYNDROME, DENIES TRAUMA. SHE STATED SHE IS ON DISABILITY FOR DEPRESSION & BIPOLAR DISORDER-> SHE RESIDES W HER 13 YO SON IN A 3RD FLOOR APT. THE Pt HAS HAD PRIOR PT YRS AGO FOR GENERAL LBP AND NOTES IT EXACERBATED HEWR SXS. OBJECTIVE FINDINGS: DECR POSTURAL AWARENESS, STRENGTH DEFICITS IN LUMBOPELVIC / PROXIMAL HIPS, LIMITED TRUNK AROM, (+) TISSUE TENSION JOHN LUMBAR REGION, LIMITED TRUNK AROM, DECR HIP FLEXIB Lt > Rt ; (+) LUMBOPELVIC ASYMM, AND FLUCTUATING TTP Rt SI Jt. SHE IS LIMITED W MORE PHYS DEMANDING ADLs, SHE NOTES SHE PUSHES THROUGH HER ADLs DESPITE HER PAIN. WE DISCUSSED THE PT POC AND THE Pt'S GOALS AND SHE WISHES TO PROCEED, ADDRESSING THE ABOVE FINDINGS. Frequency and Duration: The patient will be seen 2 x WK x 5 WKS Short Term Goals: DECR LBP TO 2-3/10 AND DECR Rt LE RADIC SXS BY 75% INITIATE HEP, Pt DEMON EFFICIENT CORE MM ENGAGEMENT IMPROVED LUMBOPELVIC SYMMETRY , WFL TRUNK AROM WFL FUNCTIONAL SQUAT Fci Goals: Pt INDEP W HEP, SELF SX MGMT IMPROVED OSWESTRY, AT EVAL 32/50 IMPROVED TUG, AT EVAL 12 SEC WFL STRENGTH IN LUMBOPELVIC-> WFL SYMM Pt DEMON 3:3 SIMUL ADLs W APPROP BODY MECH Treatment Plan: Modalities to reduce pain, spasms and effusion. Manual therapy to restore motion and function. Therapeutic exercise to improve strength and flexibility. Neuromuscular re-education for posture and balance. Therapeutic activities to return to functional activities of daily living. Electronically signed by: ADI RODRIGUEZ PT Please sign and return to therapist. Thank you for your referral.
--- NOTE | 2025-10-24 13:20 | MHC.PT.DC ---
[facility] [place] Office [place] Office [place] Office [address] Natalie Lobato [address] [phone] F: [phone] F: [phone] F: [phone] F: [phone] Physical Therapy Discharge Report Diagnosis: SACROCOCCYGEAL DISORDER/ SI Jt DISORDER, LESION OF Rt SCIATIC PAIN; Rt PIRIFORMIS SYNDROME-> WORK ON Rt SI Jt, PIRIFORMIS, TROCHANTER Date of Surgery: Date of Evaluation: 09/26/25 Date of Discharge: 10/24/25 Treatments to Date: 3 Cancellations to Date: 4 No Shows to Date: 2 Discharge Status: Achieved Goals Improved Function Patient Elected to Stop Visit Non-compliance Discharge Summary: AT HER LAST ATTENDED PT APPT, DAVE WAS PROGRESSING WELL IN PT- SHE WAS MOTIVATED WITH HER HEP AND DEMONSTRATED ADEQUATE CARRYOVER W BODY MECH- SHE DID NOT REQ ANY MAN TECHN. THE Pt HAS NOT RETURNED FOR FURTHER PT AND IS D/C'D THIS DATE PER THE PT DEPT ATTENDANCE POLICY. Electronically signed by: ADI RODRIGUEZ,PT Please sign and return to therapist. Thank you for your referral.
== END 2025-10-24 13:21 | disposition home or self-care (01) ==
LOC: HO.PT 14:05
PROVIDERS: PCP Family Medicine; Visit Provider Physical Medicine & Rehabilitation
DX: M53.3 Sacrococcygeal disorders, not elsewhere classified (principal); G57.01 Lesion of sciatic nerve, right lower limb
CPT/HCPCS: 97110; 97140; 97162; 97530

== ENCOUNTER 2025-10-17 10:51 | Outpatient (REF) | payer MEDICAID, SELFPAY ==
--- NOTE | ~2025-10-17 | XR_ITS ---
EXAMINATION: XR LUMBOSACRAL SPINE WITH OBLIQUES CLINICAL INFORMATION: pain COMPARISON: Correlated to CT abdomen and pelvis dated August 31, 2024 TECHNIQUE: AP oblique and lateral views. FINDINGS: No acute cortical disruption or gross malalignment. Mild endplate sclerosis at multiple levels with a concave deformities. Facet joint hypertrophy at L5-S1. XR/XR lumbar spine 4V min IMPRESSION: Multilevel spondylosis pronounced at L5-S1 without acute fracture or trauma-related listhesis. EXAMINATION: XR HIP, RIGHT CLINICAL INFORMATION: pain COMPARISON: June 21, 2025 TECHNIQUE: AP and oblique views of the right hip. FINDINGS: Sclerosis along the articular surface of the right acetabulum with asymmetric joint space narrowing. No acute cortical disruption or malalignment. No lytic or blastic lesions. No metallic or radiopaque foreign body. IMPRESSION: Mild osteoarthrosis/osteoarthritis, right hip. Electronically signed by: Jose Luz MD 10/17/2025 11:47 AM STACIE
--- NOTE | ~2025-10-17 | XR_ITS ---
EXAMINATION: XR LUMBOSACRAL SPINE WITH OBLIQUES CLINICAL INFORMATION: pain COMPARISON: Correlated to CT abdomen and pelvis dated August 31, 2024 TECHNIQUE: AP oblique and lateral views. FINDINGS: No acute cortical disruption or gross malalignment. Mild endplate sclerosis at multiple levels with a concave deformities. Facet joint hypertrophy at L5-S1. XR/XR hip RT min 2V IMPRESSION: Multilevel spondylosis pronounced at L5-S1 without acute fracture or trauma-related listhesis. EXAMINATION: XR HIP, RIGHT CLINICAL INFORMATION: pain COMPARISON: June 21, 2025 TECHNIQUE: AP and oblique views of the right hip. FINDINGS: Sclerosis along the articular surface of the right acetabulum with asymmetric joint space narrowing. No acute cortical disruption or malalignment. No lytic or blastic lesions. No metallic or radiopaque foreign body. IMPRESSION: Mild osteoarthrosis/osteoarthritis, right hip. Electronically signed by: Jose Luz MD 10/17/2025 11:47 AM STACIE
--- OUTSIDE RECORDS SUMMARY | 2025-10-17 13:58 | XMS_ITS | Encounter Summary ---
Author Organization [employer] Address 75 [facility] 7 [place] [address] Care Team Providers Care Hat Liner Name Role Phone Brittany Ruiz [facility] Primary Care Provider [phone] Courtney Davila MD Primary Care Provider [phone] Reason for Visit * Reason Onset Date Comments Nurse Triage 06/19/2023 Encounter Details Date Type Department Care Team (Late st Contact Info) Description 06/19/2023 Telephone [facility] MEDICINE [address] [place], [place] [phone] [place] [facility] [address] [place], [place] [phone] Nurse Triage Social History Tobacco Use Types [...] [facility] first thing tomorrow morning. [facility] [...] accepted this outcome Please contact pt at [phone] documented in this encounter Plan of Treatment Upcoming Encounters Date Type Department Care Team (Late st Contact Info) Description 11/09/2025 2:15 PM EST Office Visit [facility] CHC MED & PEDS [address] [place] [address] Courtney Davila MD [address] [place] [address] documented as of this encounter Visit Diagnoses Not on filedocumented in this encounter Care Teams Hat Liner Relationship Specialty Start Date End Date Brittany Ruiz FNP [address] [place] [address] PCP - General Family Medicine 04/29/22 03/03/24 Courtney Davila MD [address] [place] [address] PCP - General Family Medicine 03/04/24 Yony Barbosa MD Psychiatrist Psychiatry 11/17/18 documented as of this encounter
--- OUTSIDE RECORDS SUMMARY | 2025-10-17 13:59 | XMS_ITS | Encounter Summary ---
Author Organization [employer] Address 75 [facility] 7 [place] [address] Care Team Providers Care Station Engineer Chief Name Role Phone Courtney Davila MD Primary Care Provider [phone] Encounter Details Date Type Department Care Team ([facility] st Contact Info) Description 10/17/2025 Results Follow-Up [facility] CHC MED & PEDS [address] [place], [place] [phone] Courtney Davila MD [address] [place] [address] XR Hip 2 or 3 Views Right Social History Tobacco Use Types Packs/Day Years [...] Description 11/09/2025 2:15 PM EST Office Visit [facility] MED & PEDS [address] [place] [address] Courtney Davila MD [address] [place] [address] documented as of this encounter Visit Diagnoses Not on filedocumented in this encounter Additional Health Concerns Assessment Noted Time PHQ-9 Depression Total Score: 0 04/15/20 25 9:31 AM EDT documented as of this encounter Care Teams Station Engineer Chief Relationship Specialty Start Date End Date Courtney Davila MD [address] [place] [address] PCP - General Family Medicine 03/04/24 Yony Barbosa MD Psychiatrist Psychiatry 11/17/18 documented as of this encounter
--- OUTSIDE RECORDS SUMMARY | 2025-10-17 13:59 | XMS_ITS | Encounter Summary ---
Author Organization [employer] Address 75 [facility] 7 [place] [address] Care Team Providers Care Blueprint Engineer Name Role Phone Courtney Davila MD Primary Care Provider [phone] Reason for Visit * Reason Comments Med Refill Encounter Details Date Type Department Care Team ([facility] Contact Info) Description 04/05/2025 Refill [facility] CHC MED & PEDS [address] [place], [place] [phone] Courtney Davila MD [address] [place] [address] Social History Tobacco Use Types Packs/Day Years [...] is your housing situation today? I have ketlon suero 04/04/[address] you [...] Description 11/09/2025 2:15 PM EST Office Visit [facility] MED & PEDS [address] [place] [address] Courtney Davila MD [address] [place] [address] documented as of this encounter Visit Diagnoses Not on filedocumented in this encounter Additional Health Concerns Assessment Noted Time PHQ-9 Depression Total Score: 12 024 9:22 AM EDT documented as of this encounter Care Teams Blueprint Engineer Relationship Specialty Start Date End Date Courtney Davila MD [address] [place] [address] PCP - General Family Medicine 03/04/24 Yony Barbosa MD Psychiatrist Psychiatry 11/17/18 documented as of this encounter
--- OUTSIDE RECORDS SUMMARY | 2025-10-17 13:59 | XMS_ITS | Encounter Summary ---
Author Organization [employer] Address [address] [facility] [address] [place] [address] Care Team Providers Care Privacy Officer Name Role Phone Courtney Davila MD Primary Care Provider [phone] Reason for Visit * Reason Comments Med Refill Encounter Details Date Type Department Care Team ([facility] Contact Info) Description 03/09/[address] [facility] CHC MED & PEDS [address] [place], [place] [phone] Courtney Davila MD [address] [place] [address] Social History Tobacco Use Types Packs/Day Years [...] Description 11/09/2025 2:15 PM EST Office Visit [facility] MED & PEDS [address] [place] [address] Courtney Davila MD [address] [place] [address] documented as of this encounter Visit Diagnoses Not on filedocumented in this encounter Additional Health Concerns Assessment Noted Time PHQ-9 Depression Total Score: 12 024 9:22 AM EDT documented as of this encounter Care Teams Privacy Officer Relationship Specialty Start Date End Date Courtney Davila MD [address] [place] [address] PCP - General Family Medicine 03/04/24 Yony Barbosa MD Psychiatrist Psychiatry 11/17/18 documented as of this encounter
--- OUTSIDE RECORDS SUMMARY | 2025-10-17 13:59 | XMS_ITS | Encounter Summary ---
Author Organization [email or web address] Address [address] [facility] 7 [place] [address] Care Team Providers Care Men'S Leather Dress Belt Maker Name Role Phone Courtney Davila MD Primary Care Provider Reason for Visit * Reason Comments Med Refill Encounter Details Date Type Department Care Team ([facility] Contact Info) Description 04/05/2025 Refill [facility] MED & PEDS [address] [place] [address] Junior Boudreaux MD [address] [place] [address] Social History Tobacco Use Types Packs/Day Years [...] Description 11/09/2025 2:15 PM EST Office Visit [facility] MED [facility] [address] [place] [address] Courtney Davila MD [address] [place] [address] documented as of this encounter Visit Diagnoses Not on filedocumented in this encounter Additional Health Concerns Assessment Noted Time PHQ-9 Depression Total Score: 12 024 9:22 AM EDT documented as of this encounter Care Teams Men'S Leather Dress Belt Maker Relationship Specialty Start Date End Date Courtney Davila MD [address] [place] [address] PCP - General Family Medicine 03/04/24 Yony Barbosa MD Psychiatrist Psychiatry 11/17/18 documented as of this encounter
--- OUTSIDE RECORDS SUMMARY | 2025-10-17 13:59 | XMS_ITS | Encounter Summary ---
Author Organization [employer] Address [address] [facility] 7 [place] [address] Care Team Providers Care Armhole Feller Handstitching Machine Name Role Phone Courtney Davila MD Primary Care Provider [phone] Reason for Visit * Reason Comments Med Refill Encounter Details Date Type Department Care Team ([facility] Contact Info) Description 08/17/2024 Refill [facility] MED [facility] PEDS [address] [place] [address] Kristy Stevens MD [address] [place] [address] Social History Tobacco Use Types Packs/Day Years [...] Description 11/09/2025 2:15 PM EST Office Visit [facility] MED & PEDS [address] [place] [address] Courtney Davila MD [address] [place] [address] documented as of this encounter Visit Diagnoses Not on filedocumented in this encounter Additional Health Concerns Assessment Noted Time PHQ-9 Depression Total Score: 12 024 9:22 AM EDT documented as of this encounter Care Teams Armhole Feller Handstitching Machine Relationship Specialty Start Date End Date Courtney Davila MD [address] [place] [address] PCP - General Family Medicine 03/04/24 Yony Barbosa MD Psychiatrist Psychiatry 11/17/18 documented as of this encounter
--- OUTSIDE RECORDS SUMMARY | 2025-10-17 13:59 | XMS_ITS | Clinical Summary ---
Author Organization [employer] Address [address] [facility] 7t [place] [address] Care Team Providers Care Attendant Honor Bar Name Role Phone Courtney Davila MD Primary Care Provider [phone] Allergies No known active allergies Medications Blood Pressure kitIndications :Elevated blood pressure reading 1 Units in the morning. 1 kit 03/04/20 24 Active lamoTRIgine (LaMICtal) 100 MG tabletIndicati ons:Bipolar Mood Disorder Take 100 mg by mouth Once per day. Active citalopram (CeleXA) 40 MG tabletIndicati ons:Major Depressive Disorder Take 40 mg by mouth Once per day. Active Advair HFA 230-21 MCG/ACT inhaler INHALE 2 PUFFS EVERY 12 (TWELVE) HOURS. 12 g 11 01/12/20 25 Active rosuvastatin (Crestor) 40 MG tablet TAKE 1 TABLET BY MOUTH EVERY MORNING 90 tablet 1 06/06/20 25 Active cholecalcifero l (Vitamin D-3) 50 MCG (1999 UT) tablet TAKE 1 TABLET BY MOUTH EVERY MORNING 30 tablet 3 07/06/20 25 Active albuterol (Ventolin HFA) 108 (90 Base) MCG/ACT inhaler INHALE 2 PUFFS BY MOUTH EVERY FOUR HOURS NEEDED 18 g 3 07/06/20 25 Active polyethylene glycol, PEG, 3350 [...] day. 30 g 07/11/20 25 026 Active cyclobenzaprin e (Flexeril) 10 MG tablet TAKE 1 TABLET BY MOUTH EVERY MORNING, NOON AND AT BEDTIME NEEDED FOR MUSCLE SPASM 90 tablet 3 08/08/20 25 Active topiramate (Topamax) 100 MG tablet TAKE 1 TABLET BY MOUTH TWICE A DAY 60 tablet 11 08/10/20 25 Active predniSONE (Deltasone) 50 MG tablet Take 1 tablet by mouth Once per day. 07/23/20 25 Active pregabalin (Lyrica) 150 MG capsule TAKE 1 CAPSULE BY MOUTH TWICE A DAY 60 capsule 1 10/07/20 25 Active SUMAtriptan (Imitrex) 50 MG tablet TAKE 1 TABLET BY MOUTH DAILY NEEDED FOR MIGRAINE 9 tablet 2 10/07/20 25 Active ibuprofen 800 MG tablet TAKE 1 TABLET BY MOUTH THREE TIMES A DAY 90 tablet 10/07/20 25 Active pregabalin (Lyrica) 150 MG capsule TAKE 1 CAPSULE BY MOUTH TWICE A DAY 60 capsule 5 04/13/20 25 025 Discontinued SUMAtriptan (Imitrex) 50 MG tablet TAKE 1 TABLET BY MOUTH DAILY NEEDED FOR MIGRAINE 9 tablet 2 07/06/20 25 025 Discontinued ibuprofen 800 MG tablet TAKE 1 TABLET BY MOUTH THREE TIMES A DAY 90 tablet 09/09/20 25 025 Discontinued Active Problems Problem Noted [...] permanent contraception. Previous discussions with another provider (crew leader in [facility] )resulted in contraindications for control pills [...] recommended reduction of 20-30% of maintenance calories; core filer referral offered. Recommended to decrease soda and [...] 04/15/2025 Overview (04/15/2025): SACHIN 2-3 2013, normals 2014,2015,2018; pap 07/05/21= neg w neg HPV; 07/10/2022 [...] after the ultrasound and possible referral to crew leader depending on results (Note: IUD removal is [...] patient will be scheduling consultation visit with crew leader to discuss replacement. Encounters Date Type Department Care Team Description 10/17/2025 Results Follow-Up [facility] MED & PEDS [address] [place] [address] Courtney Davila MD XR Hip 2 or 3 Views Right 10/07/2025 Telephone [facility] MED [facility] PED[facility] [address] [place] [address] Courtney Davila MD 10/07/2025 Telephone [facility] MED & PEDS [address] [place] [address] Courtney Davila MD Med Refill 10/06/2025 Refill [facility] MED & PEDS [address] [place] [address] Courtney Davila MD 09/09/2025 Refill [facility] MED [facility]ED[facility] [address] [place] [address] Courtney Davila MD 09/09/2025 Telephone [facility] MED & PED[facility] [address] [place] [address] Courtney Davila MD Chart Prep 08/09/2025 Refill [facility] MED & PED[facility] [address] [place] [address] Courtney Davila MD 08/05/2025 Refill [facility] MED & PEDS [address] [place] [address] Courtney Davila MD from Last 3 Months Immunizations Immunization Administration Dates Next Due DTaP 05/03/2012, 1,01/04/1988,1986,1986,1986 Hep A, Adult 07/31/2017,01/14/2017 Hep B, Adolescent or Pediatric 12/17/2001,2000,07/24/1999 Hep B, adult 01/14/2017 Hib ([facility]) 02/01/1988 IPV 03/21/1988, 7,1986,1985 Influenza injectable quadriv [...] is your housing situation today? I have keltno suero 04/04/[address] you [...] Description 11/09/2025 2:15 PM EST Office Visit [facility] MED & PEDS [address] [place] [address] Courtney Davila MD [address] [place] [address] Health Maintenance Due Date Last Done Comments [...] Cervical Cancer Screening 10/11/2029 HPV/Cotest 10/11/2029 07/10/2022, /02/2022, 07/05/2021, Additional history exists Pap Smear 10/11/2029 [...] Priority Date/Time Associated Diagnosis Comments XR HIP 2 OR 3 VIEWS RIGHT Routine 10/17/2025 11:31 AM EST Lumbar back pain XR LUMBAR SPINE COMPLETE 4+ VIEWS Routine 10/17/2025 11:26 AM EST Lumbar back pain PAP SMEAR Routine 10/11/2024 12:00 AM EST [...] to Health Maintenance Results * XR Hip 2 or 3 Views Right (10/17/2025 11:31 AM EST) Anatomical Region Laterality Modality Lower Extremities, Hip Right Radiograp hic Imaging 10/17/2025 11:3 1 AM EST Narrative 10/17/2025 11:50 AM EST [address] [address] XRay Report Signed Patient: Amy Hawk MR#: [id number] 18 : 1985 Acct:[id number] Age/Sex: 40 / F ADM Date: 10/17/25 Loc: HO.XRAY Attending Dr: Courtney Davila MD Ordering Physician: Courtney Davila MD Date of Service: 10/17/25 Procedure(s): XR hip RT min 2V Accession Number(s): [id number] cc: Courtney Davila MD Reason for Exam: pain EXAMINATION: XR LUMBOSACRAL SPINE WITH OBLIQUES CLINICAL INFORMATION: pain COMPARISON: Correlated to CT abdomen and pelvis dated August 31, 2024 TECHNIQUE: AP oblique and lateral views. FINDINGS: No acute cortical disruption or gross malalignment. Mild endplate sclerosis at multiple levels with a concave deformities. Facet joint hypertrophy at L5-S1. XR/XR hip RT min 2V IMPRESSION: Multilevel spondylosis pronounced at L5-S1 without acute fracture or trauma-related listhesis. EXAMINATION: XR HIP, RIGHT CLINICAL INFORMATION: pain COMPARISON: June 21, 2025 TECHNIQUE: AP and oblique views of the right hip. FINDINGS: Sclerosis along the articular surface of the right acetabulum with asymmetric joint space narrowing. No acute cortical disruption or malalignment. No lytic or blastic lesions. No metallic or radiopaque foreign body. IMPRESSION: Mild osteoarthrosis/osteoarthritis, right hip. Electronically signed by: Jose Luz MD 10/17/2025 11:47 AM EST Dictated By: Jose Loera MD Signed By: <Electronically signed by Jose Roberts MD in OV> 10/17/25 1147 DD/ 1131 TD/TT: 10/17/25 1132 Health Psychologist: Procedure Note Donotuseinterpreter, Image - 10/17/[address] [address] XRay Report Signed Patient: Amy HawkMR#: [id number] 18 : 1985Acct:[id number] Age/Sex: 40 / FADM Date: 10/17/25 Loc: HO.XRAY Attending Dr: Courtney Davila MD Ordering Physician: Courtney Davila MD Date of Service: 10/17/25 Procedure(s): XR hip RT min 2V Accession Number(s): [id number] cc: Courtney Davila MD Reason for Exam: pain EXAMINATION: XR LUMBOSACRAL SPINE WITH OBLIQUES CLINICAL INFORMATION: pain COMPARISON: Correlated to CT abdomen and pelvis dated August 31, 2024 TECHNIQUE: AP oblique and lateral views. FINDINGS: No acute cortical disruption or gross malalignment. Mild endplate sclerosis at multiple levels with a concave deformities. Facet joint hypertrophy at L5-S1. XR/XR hip RT min 2V IMPRESSION: Multilevel spondylosis pronounced at L5-S1 without acute fracture or trauma-related listhesis. EXAMINATION: XR HIP, RIGHT CLINICAL INFORMATION: pain COMPARISON: June 21, 2025 TECHNIQUE: AP and oblique views of the right hip. FINDINGS: Sclerosis along the articular surface of the right acetabulum with asymmetric joint space narrowing. No acute cortical disruption or malalignment. No lytic or blastic lesions. No metallic or radiopaque foreign body. IMPRESSION: Mild osteoarthrosis/osteoarthritis, right hip. Electronically signed by: Jose Luz MD 10/17/2025 11:47 AM EST Dictated By: Jose Loera MD Signed By: <Electronically signed by Jose Roberts MDin OV> 10/17/25 1147 DD/ 1131 TD/TT: 10/17/25 1132 Health Psychologist: us Courtney Davila MD IMG XR PROCEDURES Edited Resu lt - Final * XR Lumbar Spine Complete 4+ Views (10/17/2025 11:26 AM EST) Anatomical Region Laterality Modality Spine, L-spine Radiographic Rosa ging 10/17/2025 11:2 6 AM EST Narrative 10/17/2025 11:50 AM EST [address] [address] XRay Report Signed Patient: Amy Hawk MR#: [id number] 18 : 1985 Acct:[id number] Age/Sex: 40 / F ADM Date: 10/17/25 Loc: HO.XRAY Attending Dr: Courtney Davila MD Ordering Physician: Courtney Davila MD Date of Service: 10/17/25 Procedure(s): XR lumbar spine 4V min Accession Number(s): [id number] cc: Courtney Davila MD Reason for Exam: pain EXAMINATION: XR LUMBOSACRAL SPINE WITH OBLIQUES CLINICAL INFORMATION: pain COMPARISON: Correlated to CT abdomen and pelvis dated August 31, 2024 TECHNIQUE: AP oblique and lateral views. FINDINGS: No acute cortical disruption or gross malalignment. Mild endplate sclerosis at multiple levels with a concave deformities. Facet joint hypertrophy at L5-S1. XR/XR lumbar spine 4V min IMPRESSION: Multilevel spondylosis pronounced at L5-S1 without acute fracture or trauma-related listhesis. EXAMINATION: XR HIP, RIGHT CLINICAL INFORMATION: pain COMPARISON: June 21, 2025 TECHNIQUE: AP and oblique views of the right hip. FINDINGS: Sclerosis along the articular surface of the right acetabulum with asymmetric joint space narrowing. No acute cortical disruption or malalignment. No lytic or blastic lesions. No metallic or radiopaque foreign body. IMPRESSION: Mild osteoarthrosis/osteoarthritis, right hip. Electronically signed by: Jose Luz MD 10/17/2025 11:47 AM EST Dictated By: Jose Loera MD Signed By: <Electronically signed by Jose Roberts MD in OV> 10/17/25 1147 DD/ 1126 TD/TT: 10/17/25 1132 Health Psychologist: Procedure Note Donotuseinterpreter, Image - 10/17/[address] [address] XRay Report Signed Patient: Amy Hawk#: [id number] 18 : 1985Acct:[id number] Age/Sex: 40 / FADM Date: 10/17/25 Loc: HOMagdalenaXRAY Attending Dr: Courtney Davila MD Ordering Physician: Courtney Davila MD Date of Service: 10/17/25 Procedure(s): XR lumbar spine 4V min Accession Number(s): [id number] cc: Courtney Davila MD Reason for Exam: pain EXAMINATION: XR LUMBOSACRAL SPINE WITH OBLIQUES CLINICAL INFORMATION: pain COMPARISON: Correlated to CT abdomen and pelvis dated August 31, 2024 TECHNIQUE: AP oblique and lateral views. FINDINGS: No acute cortical disruption or gross malalignment. Mild endplate sclerosis at multiple levels with a concave deformities. Facet joint hypertrophy at L5-S1. XR/XR lumbar spine 4V min IMPRESSION: Multilevel spondylosis pronounced at L5-S1 without acute fracture or trauma-related listhesis. EXAMINATION: XR HIP, RIGHT CLINICAL INFORMATION: pain COMPARISON: June 21, 2025 TECHNIQUE: AP and oblique views of the right hip. FINDINGS: Sclerosis along the articular surface of the right acetabulum with asymmetric joint space narrowing. No acute cortical disruption or malalignment. No lytic or blastic lesions. No metallic or radiopaque foreign body. IMPRESSION: Mild osteoarthrosis/osteoarthritis, right hip. Electronically signed by: Jose Luz MD 10/17/2025 11:47 AM EST Dictated By: Jose Loera MD Signed By: <Electronically signed by Jose Roberts MDin OV> 10/17/25 1147 DD/ 1126 TD/TT: 10/17/25 1132 Health Psychologist: us Courtney Davila MD IMG XR PROCEDURES Edited Resu lt - Final * Pap Smear (10/11/2024 12:00 AM EST) 10/11/2024 10/12/2024 9:5 0 AM EST Narrative [facility] - 10/19/2024 9:56 AM EST ----- ------- Name: Amy Hawk Age/Sex: 39/F : 1985 Unit#: [id number] Attend Dr: Ericka Martinez CNM Re10/11/24 Status: [facility] RE[facility] Location: .LAB Disch: ----- ------- SPEC : [id number] RECD: 10/12/24 STATUS: RIO MEZA NUM: [id number] MAYI: 10/11/24-[address]: Ericka Martinez CNM ENTERED: 10/12/24-1006 SP TYPE: Pap Smr OTHR DR: Courtney Davila MD ORDERED: Pap Smear Interpretation Satisfactory for evaluation. No endocervical cells seen. Negative for intraepithelial lesion or malignancy. HPV High Risk: Negative HPV Genotyping 16: Negative HPV Genotyping 18: Negative Clinical Information LMP: No/IUD Previous PAP test: 2021, 2020, neg, abnormal Material Received ThinPrep-Cervical Copies To: Ericka Martinez CNM [facility] [address] [place] [address], [address] [place] [address] [phone] Courtney Davila MD [address] [place] [address] ----- ------- Signed (signature on file) FrancoRUPINDER Crump ([facility]) 10/19/24 0956 ----- ------- END OF REPORT Generic External Data Provider LAB CYTOLOGY ATIF BENNETT Final Result Performing Organization Address [facility] Co de Phone Number [facility] [address] [place] [address] [phone] * Hepatitis C Antibody with Reflex to HCV, RNA, Quantitative, Real-Time PCR (03/04/2024 1:51 PM EDT) [facility] Hepatitis C Antibody Nonreactive Nonreactive [facility] Comment:Antibodies to HCV no t detected; does not exclude early acuteHCV infection. Blood Venous blood specimen / Unknown 03/04/2024 1:51 PM EDT 03/04/2024 2:18 PM EDT Courtney Davila MD LAB BLOOD ORDERABLES Final Re sult Performing Organization Address [facility] Co de Phone Number [facility] [address] [place] [address] [phone] * HIV-1/2 Antigen and Antibodies, Fourth Generation, with Reflexes (03/04/2024 1:51 PM EDT) [facility] HIV AB/AG Nonreactive Nonreactive [facility] Comment:HIV-1 p24 Ag and/or HIV-1/HIV-2 Ab not detected.A test result that is nonreactive does not exclude thepossibility of exposure to or infection with HIV-1 and/orHIV-2. Nonreactive results in this assay for individualswith prior exposure to HIV-1 and/or HIV-2 may be due toantigen and antibody levels that are below the limit ofdetection of this assay.The [employer] HIV Ag/Ab Combo assay result andsupplemental assay results should be interpreted inconjunction with the patient's clinical presentation,history and other laboratory results. If the results areinconsistent with clinical evidence, additional testing issuggested to confirm the result. Blood Venous blood specimen / Unknown 03/04/2024 1:51 PM EDT 03/04/2024 2:18 PM EDT us Courtney Davila MD LAB BLOOD ORDERABLES Final Re sult [facility] [address] [place] [address] [phone] * (ABNORMAL) Lipid Panel, Standard (02/06/2024 8:20 AM EDT) Triglycerides 111 <150 mg/dL [facility] Comment:Desirable Triglyceri de: less than 150 mg/dLBorderline High Triglyceride 150-199 mg/dLHigh Triglyceride: 200-499 mg/dLVery High Triglyceride: greater than or equal to 5OO mg/dL Cholesterol 235(H) <200 mg/dL [facility] Comment:Desirable Cholestero l: less than 200 mg/dLBorderline High Cholesterol: 200-239 mg/dLHigh Cholesterol: greater than 239 mg/dL LDL Cholesterol Calculated 173(H) <100 mg/dL [facility] Comment:Desirable LDL: less than 100 mg/dLNear Optimal/Above Optimal LDL: 110- 129 mg/dLBorderline High LDL: 130-159 mg/dLHigh LDL: 160-189 mg/dLVery High LDL: greater than or equal to 190 mg/dL HDL Cholesterol 40(L) >40 mg/dL [facility] Comment:Desirable HDL: great er than 40 mg/dL Note: This HDL assay may give artificially low results in patients with liver disease. Blood Venous blood specimen / Unknown 02/06/2024 8:20 AM EDT 02/06/2024 8:26 AM EDT us Angelina Morales MD LAB BLOOD ORDERABLES Final Re sult Performing Organization Address City/[facility]/ZIP Co de Phone Number [facility] [address] [place] [address] [phone] * HPV E6/E7 RFLX ROBERT 16 18/45 (07/10/2022 11:46 AM EDT) HPV 16 RNA [facility] HPV 18/45 RNA [facility] HPV E6 E7 ADD [facility] HPV mRNA E6/E7 rflx Not Detected Not Detected [facility] Comment: Methodology: Licensed Loan Officer Assistant-Mediated Amplification This assay detects E6/E7 viral messenger RNA (mRNA) from 14 high-risk HPV types (16,18,31,33,35,39,45,51,52,56,58,59,66,68). Cervical sources are required for HPV testing. If a vaginal source from a patient who has had a total hysterectomy with removal of cervix was submitted, please contact the testing laboratory for alternative testing options. For additional information, please refer to http://education.[employer]/faq/FET830v4 (This link if provided for information/ educational purposes only.) THIS TEST WAS PERFORMED AT: [facility] [address] [place] [address] [address]LO[address],[place] [address] MORA STARR MD 07/10/2022 11:4 6 AM EDT us Ericka [place] HISTORICAL/NON ORDERABLE LABS Fi nal Result Performing Organization Address City/[facility]/ZIP Co de Phone Number [facility] [address] [place] [address], from Last 3 Months or Most Recently Relevant to Health Maintenance Insurance C3 Care Teams Attendant Honor Bar Relationship Specialty Start Date End Date Courtney Davila MD [address] [place] [phone] PCP - General Family Medicine 03/04/24 Yony Barbosa MD Psychiatrist Psychiatry 11/17/18
--- OUTSIDE RECORDS SUMMARY | 2025-10-17 13:59 | XMS_ITS | Encounter Summary ---
Author Organization [employer] Address [address] [facility] 7 [place] [address] Care Team Providers Care Landscape Designer Name Role Phone Courteny Davila MD Primary Care Provider [phone] Reason for Visit * Reason Comments Med Refill Encounter Details Date Type Department Care Team ([facility] st Contact Info) Description 07/21/2024 Refill [facility] MED & PEDS [address] [place] [address] Kristy Stevens MD [address] [place] [address] Social History Tobacco Use Types Packs/Day Years [...] 2:15 PM EST Office Visit [facility] [address] [place] [address] Courtney Davila MD [address] [place] [address] documented as of this encounter Visit Diagnoses Not on filedocumented in this encounter Additional Health Concerns Assessment Noted Time PHQ-9 Depression Total Score: 12 024 9:22 AM EDT documented as of this encounter Care Teams Landscape Designer Relationship Specialty Start Date End Date Courtney Davila MD [address] [place] [address] PCP - General Family Medicine 03/04/24 Yony Barbosa MD Psychiatrist Psychiatry 11/17/18 documented as of this encounter
== END 2025-10-17 10:52 | disposition home or self-care (01) ==
LOC: HO.XRAY 10:51
PROVIDERS: PCP Family Medicine; Visit Provider Family Medicine
DX: M54.50 Low back pain, unspecified (principal)
CPT/HCPCS: 72110; 73502

== ENCOUNTER → 2025-10-17 11:06 | Outpatient (BNV) | payer MEDICAID, SELFPAY | PROVIDERS: PCP Family Medicine; Visit Provider Radiology Diagnostic Radiology | DX: M47.817 Spondylosis without myelopathy or radiculopathy, lumbosacral region (principal); M16.11 Unilateral primary osteoarthritis, right hip | CPT/HCPCS: 72110; 73502 ==